=== PATIENT | male | born 1965 | race Caucasian/White ===

== ENCOUNTER 2017-04-21 08:33 | Inpatient (IN) | payer BC, MEDICARE ==
[2017-04-21] VITALS (7 sets, daily range): BP systolic 116–136; BP diastolic 61–86; PULSE 103–112; RESP 18–20; TEMP 99.3; Ht 167.6 cm; Wt 63.6 kg
[~2017-04-21] VITALS: Ht 167.6 cm; Wt 63.6 kg
[~2017-04-21 08:33] MED LIST: ALPR1TAB7 PO; LORA1TAB PO; METO-429 PO; MYCO360T PO; ONDA4TAB35 PO; PRED-253 PO; TACR1CAP PO
[2017-04-21] MEDS ORDERED: CEFEPIME 2GM/50 ML (PMX) 50 ML IVPB STA (08:40)
[2017-04-21] MEDS ORDERED: SOD CHLORIDE 0.9% 1,000 ML IV STA ×2 (08:40)
[2017-04-21] MEDS ORDERED: VANCOMYCIN 1 GM (PMX) 250 ML IVPB ONE (09:00)
[2017-04-21 09:19] LABS: ABNORMAL IP MESSAGE 1; BASOPHIL # 0.1 10^3/ul (0.0-0.1); BASOPHILS % 0.3 % (0.0-2.0); HEMATOCRIT 44.7 % (42.0-52.0); HEMOGLOBIN 15.8 g/dl (14.0-18.0); LYMPHOCYTES # 2.3 10^3/ul (0.8-2.9); LYMPHOCYTES % 10.7 % (15.0-51.0); MEAN CORPUSCULAR HEMOGLOBIN 32.2 pg (29.0-33.0); MEAN CORPUSCULAR HGB CONC 35.3 g/dl (32.0-37.0); MEAN PLATELET VOLUME 11.5 fl (7.4-10.4); MONOCYTE # 1.9 10^3/ul (0.3-0.9); MONOCYTES % 8.8 % (0.0-11.0); NEUTROPHIL # 16.8 10^3/ul (1.6-7.5); NEUTROPHILS % 79.7 % (39.0-77.0); PLATELET COUNT 287 10^3/UL (140-415); POSITIVE DIFF @See below; RED BLOOD COUNT 4.91 10^6/ul (4.70-6.10); RED CELL DISTRIBUTION WIDTH 13.4 % (11.5-14.5); WHITE BLOOD COUNT 21.1 10^3/ul (4.8-10.8)
--- NOTE | 2017-04-21 09:27 | RADRPT ---
PROCEDURE: XR Chest. CLINICAL INDICATION: chest pain TECHNIQUE: Single frontal view of the chest was obtained COMPARISON: CR CHEST 10/28/2015 FINDINGS: The heart and mediastinum are within normal limits. The lungs are clear. There is no pleural effusion or pneumothorax. RPTAT: AA IMPRESSION: No acute disease. .Bowen Franklin MD, MD Date Time Electronically viewed and signed by .Bowen Franklin MD, on 04/21/2017 09:26 .S/
[2017-04-21 09:42] LABS: ALBUMIN 4.6 g/dl (3.3-4.9); ALBUMIN/GLOBULIN RATIO 1.64; BILIRUBIN,INDIRECT 0.6 mg/dl (0-1.1); BILIRUBIN,TOTAL 0.6 mg/dl (0.2-1.3); CALCIUM 12.1 mg/dl (8.4-10.2); CREATININE 3.97 mg/dl (0.61-1.24); POTASSIUM 3.8 mmol/L (3.5-5.1); TOTAL PROTEIN 7.4 g/dl (6.1-8.1)
[2017-04-21 09:54] LABS: TROPONIN-I 0.012 ng/ml (0.00-0.12)
[2017-04-21] MEDS ORDERED: ONDANSETRON 4 MG INJ IV STA (10:30)
[2017-04-21] MEDS ORDERED: ACETAMINOPHEN 325 MG TAB PO PRN (10:30)
[2017-04-21] MEDS ORDERED: ONDANSETRON 4 MG INJ IV PRN (10:30)
[2017-04-21] MEDS ORDERED: LORAZEPAM 2 MG INJ IV ONE ×2 (11:00→14:30)
[2017-04-21] MEDS ORDERED: LORAZEPAM 1 MG TAB PO PRN (11:30)
[2017-04-21] MEDS ORDERED: ONDANSETRON (ODT) 4 MG TAB ODT PRN (11:30)
[2017-04-21 12:17] LABS: INR 1.18; PARTIAL THROMBOPLASTIN TIME 27.1 Sec (25.0-35.0); PROTIME 15.1 Sec (12.2-14.2); PT RATIO 1.2
--- NOTE | 2017-04-21 12:21 | HP ---
DATE OF ADMISSION: 04/21/2017 CHIEF COMPLAINT: Fever, rigors, nausea, vomiting. HISTORY OF PRESENT ILLNESS: This is a 51-year-old male with a past medical history of simultaneous renal and pancreatic transplant in 1999 with a baseline creatinine of 1.3 to 1.4 mg/dL. The patient is followed by myself in my office. Most recent creatinine was approximately 1.4 mg/dL approximate ly 2 months ago. The patient also has a history of CMV virus, a history of cyclic vomiting syndrome who presents to [facility] with several days of fevers, rigors, nausea, vomiting. The patient stated the symptoms began approximately 4 to 5 days ago when he started having progres sive weakness, chills. The patient during this time was also having progressive nausea and vomiting . He stated his symptoms did not improve with his usual medical management of Zofran as well as can nabis. The patient stated yesterday his symptoms progressively got worse. He was unable to tolerat e any p.o. including his immunosuppressive medications. As a result, the patient was brought into [facility] emergency room for evaluation. Upon arrival, the patient had laboratory data which showed a whit e count of 21,000. The patient had a sodium 140, BUN is 33, creatinine 3.97. Lactic acid 5.0. Caitlyn st x-ray was obtained which showed no acute pathology. In the emergency room, the patient was diagn osed with severe sepsis. He was started on sepsis protocol. He was given IV hydration, IV fluids, IV antibiotics of vancomycin and Zosyn. There have been no other acute processes noted. In terms of the patient's renal history, as stated above, the patient has history of simultaneous pa ncreatic and renal transplant 17 years ago. The patient's baseline renal function and creatinine is around 1.4 mg/dL. The patient previously did have a complication of CMV virus 1 year postinfectiou s but that was treated with IV Valcyte without any further recurrence CMV. The patient's renal func tion is otherwise stable without any further complications. There has been no further reports of an y hemoptysis, hematemesis, hematochezia. PAST MEDICAL HISTORY: As stated above, history of simultaneous pancreatic and kidney transplant in 1999 and previous history of acute kidney injury, previous history of diabetes, previous history of CMV virus, history of pneumonia, history of hypertension. PAST SURGICAL HISTORY: Status post pancreatic and kidney transplant. ALLERGIES: NO KNOWN DRUG ALLERGIES. SOCIAL HISTORY: Does not drink, smoke or do drugs. FAMILY HISTORY: Noncontributory. HOME MEDICATIONS: Include: 1. Prednisone 5 mg daily. 2. Prograf 2 mg b.i.d. 3. 360 p.o. q. 12 hours. 4. Aspirin. 5. Xanax. 6. Metoprolol. REVIEW OF SYSTEMS: A 14-point review of systems was conducted. Pertinent positives stated in HPI, otherwise negative. PHYSICAL EXAMINATION: VITAL SIGNS: Blood pressure is 118/81, respirations 24, pulse 99, temperature 98.1. HEENT: Head is normocephalic. Pupils are reactive to light. NECK: Supple. HEART: Regular rate. LUNGS: Show diminished breath sounds at base. ABDOMEN: Soft, nontender to palpation. No rebound or guarding. EXTREMITIES: Negative for clubbing, cyanosis, no edema. DERMATOLOGIC: No rashes. MUSCULOSKELETAL: No joint effusions. NEUROLOGIC: No focal deficits. LABORATORY DATA: Shows sodium 140, potassium , chloride 96, BUN 33, creatinine 3.97, calcium 1 2.1. Lactic acid 5.0, white count 21.1, hemoglobin 15.8 and platelet count 287. IMAGING STUDIES: As stated in HPI. ASSESSMENT AND PLAN: This is a 51-year-old male who presents with: 1. Severe sepsis. Underlying etiology source is unclear, possibly pneumonic, possibly abdominal, p ossible viral, that is, flu. Plan at this point is to check a CT scan of abdomen and pelvis. The p atient's chest x-ray shows no acute pathology at this time. We will follow up blood cultures. Foll ow up with influenza titers. We will continue the patient on broad-spectrum antibiotics with vancom ycin and Zosyn. Continue aggressive IV hydration. Will check lactic acid and procalcitonin level. We will place an ID consult for evaluation and monitor. 2. Acute respiratory failure. Etiology is likely due to underlying sepsis. Patient's chest x-ray shows no acute findings. Continue supplemental oxygen. Continue nebulizers. Monitor closely. Con body shop technician pulmonary consult. 3. Nonoliguric acute kidney injury on top of chronic allograft failure with previous baseline creat inine of 1.4 mg/dL. Etiology of acute kidney injury is likely secondary to hemodynamics, sepsis. T he possibility of acute rejection is always a consideration, although less likely given the acute pr esentation. Plan at this point is to check a UA with microanalysis. We will check urine electrolyt es. We will check a renal ultrasound of the patient's allograft. We will check a Prograf level. W e will continue current immunosuppressive regimen, will likely need to adjust Prograf dosing. We wi ll continue to treat underlying sepsis. Continue IV hydration, monitor closely. 4. Status post simultaneous pancreatic and kidney transplant with a baseline creatinine of 1.4 mg/d L. Patient is currently in acute kidney injury as stated above. We will continue current medical m anagement. 5. History of chronic nausea and vomiting. Continue Zofran. Continue Ativan p.r.n. 6. Anxiety disorder. Continue Xanax. 7. History of hypertension. Patient is currently hypotensive. We will hold beta janette, monitor. 8. Gastrointestinal and deep venous thrombosis prophylaxis. We will give proton pump inhibitor and Lovenox. Please note I spent over 25 minutes of sauw-cn-cvci time with the patient. The patient is FULL CODE . Dictated By: JENNIFER ELIAS/MAYTE Conf#: [id number] DID#: [id number]
--- NOTE | 2017-04-21 12:29 | CONS ---
Date/Time of Note Date/Time of Note DATE: 04/21/17 TIME: 12:21 Assessment/Plan Assessment/Plan Chief Complaint/Hosp Course 1. abnormal ECG 2. Sepsis 3. lactic acidosis 4. hx renal transplant 5. hx pancreatic transplant 6. 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 HX HTN Recommendations: IV fluid and antibiotic management as per internal medicine. Cultures to be sent from the emergency room. Aspirin and beta-janette to be continued as long as her blood pressure allows for his. We will repeat the cardiac enzymes tomorrow again. Echocardiogram will be checked as well. Adjustment of antirejection medication as per internal medicine/nephrology team. Thank you for his referral. I will continue to follow along with you. DONTA HAWLEY MD [facility] Problems: Consultation Date/Type/Reason Admit Date/Time Date of Consultation: Apr 21, 2017 Type of Consultation: cardiology Reason for Consultation abnormal ECG Referring Provider: JENNIFER MENDEZ DO Hx of Present Illness cc: weakness, N/V HPI: Thank you for his referral. This is a pleasant 51-year-old gentleman with history of pancreatic and renal transplant about 17 years ago who presented to emergency above complaint. Patient says over the past year he has been weak having nausea vomiting. Her generalized pain and discomfort including bilateral chest wall. He denies any palpitation to me. He has not been able to eat well. His EKG has showed marked ST abnormalities which was currently asked to evaluate and treat. His old record was reviewed. He has had a Lexiscan stress test done about 3 years ago at that time he was normal perfusion noted. He had he appears to have severe lactic acidosis and possibly sepsis. Allergies: No known drug allergies Medications per medical reconciliation sheet which was personally reviewed and includes Toprol and aspirin plus antirejection medications. Social history he has not smoked. Family history denies any early coronary artery disease Review of system as above mentioned he denies all other. Exam/Review of Systems Vital Signs Vitals Vital Signs Date Time Temp Pulse Resp B/P Pulse Ox O2 Delivery O2 Flow Rate FiO2 04/21/17 11:15 98.1 99 24 118/81 100 Nasal Cannula 2.0 Exam General: appears in distress. HEENT: NC/AT. pupils are equal. round. NECK: NO JVD. no stridor. CV: tachycardic. systolic murmur; no gallop or rubs. PULM: no wheezing or rhonchi. GI: SOFT, ND, no rebound or guarding Extremity: trace B/L LE edema. no clubbing. neuro: awake and alert, OX3. Psych: calm and pleasant rectal: deferred Derm: multiple tattoos ECG reviewed sinus tachy marked ST T abn c/w ant and inf/lat ischemia. CXR reviewed. lexiscan 09/26/13: 1. No evidence of perfusion defects or wall motion abnormalities. 2. The left ventricle ejection fraction at stress is 57%. Results Result Diagram: 04/21/17 0900 04/21/17 0900 Results 24 hrs Laboratory Tests Test 04/21/17 09:00 04/21/17 11:20 White Blood Count 21.1 H Red Blood Count 4.91 Hemoglobin 15.8 Hematocrit 44.7 Mean Corpuscular Volume 91.0 Mean Corpuscular Hemoglobin 32.2 Mean Corpuscular Hemoglobin Concent 35.3 Red Cell Distribution Width 13.4 Platelet Count 287 Mean Platelet Volume 11.5 #H Neutrophils % 79.7 H Lymphocytes % 10.7 L Monocytes % 8.8 Eosinophils % 0.0 Basophils % 0.3 Nucleated Red Blood Cells % 0.0 Neutrophils # 16.8 H Lymphocytes # 2.3 Monocytes # 1.9 H Eosinophils # 0.0 Basophils # 0.1 Nucleated Red Blood Cells # 0.0 Sodium Level 140 Potassium Level 3.8 Chloride Level 96 L Carbon Dioxide Level 22 Anion Gap 26 H Blood Urea Nitrogen 33 H Creatinine 3.97 H Glucose Level 144 Lactic Acid Level 5.0 *H 4.8 *H Calcium Level 12.1 H Total Bilirubin 0.6 Direct Bilirubin 0.00 Indirect Bilirubin 0.6 Aspartate Amino Transf (AST/SGOT) 24 Alanine Aminotransferase (ALT/SGPT) 18 Alkaline Phosphatase 72 Troponin I 0.012 Total Protein 7.4 Albumin 4.6 Globulin 2.80 Albumin/Globulin Ratio 1.64 Lipase 33 Prothrombin Time 15.1 H Prothrombin Time Ratio 1.2 INR International Normalized Ratio 1.18 Activated Partial Thromboplast Time 27.1 Medications Medications Current Medications Alprazolam (Xanax) 1 mg Q8 PRN PO ANXIETY; Start 04/21/17 at 11:30 Mycophenolate Sodium (Myfortic) 360 mg Q12 PO ; Start 04/21/17 at 21:00 Ondansetron HCl (Zofran Odt) 4 mg Q6 PRN ODT NAUSEA AND/OR VOMITING; Start at 11:30 Prednisone (Prednisone) 5 mg DAILY PO ; Start 04/22/17 at 09:00 Tacrolimus 2 mg 2 mg Q12 PO ; Start 04/21/17 at 21:00 Sodium Chloride 1,000 ml @ 100 mls/hr Q10H IV ; Start 04/21/17 at 12:00 Cefepime HCl 50 ml @ 100 mls/hr BID IVPB ; Start 04/21/17 at 21:00 Sodium Chloride (NS) 1,000 ml @ 100 mls/hr Q10H IV ; Start 04/21/17 at 12:00 DONTA HAWLEY MD Apr 21, 2017 12:29 Medications Current Medications Alprazolam (Xanax) 1 mg Q8 PRN PO ANXIETY; Start 04/21/17 at 11:30 Mycophenolate Sodium (Myfortic) 360 mg Q12 PO ; Start 04/21/17 at 21:00 Ondansetron HCl (Zofran Odt) 4 mg Q6 PRN ODT NAUSEA AND/OR VOMITING; Start at 11:30 Prednisone (Prednisone) 5 mg DAILY PO ; Start 04/22/17 at 09:00 Tacrolimus 2 mg 2 mg Q12 PO ; Start 04/21/17 at 21:00 Sodium Chloride 1,000 ml @ 100 mls/hr Q10H IV ; Start 04/21/17 at 12:00 Cefepime HCl 50 ml @ 100 mls/hr BID IVPB ; Start 04/21/17 at 21:00 Sodium Chloride (NS) 1,000 ml @ 100 mls/hr Q10H IV ; Start 04/21/17 at 12:00 DONTA HAWLEY MD Apr 21, 2017 12:29
[2017-04-21] MEDS ORDERED: METOCLOPRAMIDE 10 MG INJ ONE (12:45)
[2017-04-21] MEDS ORDERED: HALOPERIDOL 5 MG INJ IV ONE (13:00)
[2017-04-21] MEDS ORDERED: METOCLOPRAMIDE 10 MG INJ IV ONE (13:00)
[2017-04-21] MEDS ORDERED: ASPI81TA3 PO (13:11)
[2017-04-21] MEDS ORDERED: AMLO-147 PO (13:11)
--- NOTE | 2017-04-21 13:14 | ERD ---
ER Documentation Chief Complaint Chief Complaint DIZZINESS, WEAKNESS, & LOSS OF APPETITIE X2 DAYS HPI Patient is a 51-year-old male with kidney and pancreas transplant and diabetes who presents with dizziness and weakness. He was brought in by ambulance. He said that he has had the symptoms for the past 2 days. He almost passed out but did not pass out. He was given normal saline 500 mL bolus and Zofran by paramedics. He had low blood pressure for the paramedics. He was having whole body chills. He does not know if he had a fever. He has had nausea and vomiting. He was taking his antirejection medicines until 24 hours ago when he could not keep anything down. He has had cough and decreased urination. His primary doctor is Dr. Ruiz. ROS All systems reviewed and are negative except as per history of present illness. Medications Home Meds Active Scripts Ondansetron Hcl* (Zofran* ODT) 4 mg -ODT Tab.disper, 4 MG PO Q6 Y for NAUSEA AND /OR VOMITING, #20 TAB Prov:EFREN RAMON 10/29/15 Lorazepam* (Lorazepam*) 1 Mg Tablet, 1 MG PO Q8H Y for ANXIETY, #20 TAB Prov:EFREN RAMON 10/29/15 Reported Medications Alprazolam* (Alprazolam*) 1 Mg Tablet, 1 MG PO Q8 Y for ANXIETY, TAB 10/28/15 Metoprolol Tartrate* (Lopressor*) 50 Mg Tab, 50 MG PO BID, #60 TAB 10/28/15 Mycophenolate Sodium* (Myfortic*) 360 Mg Tablet., 360 MG PO Q12, TAB 07/23/14 Tacrolimus* (Tacrolimus*) 1 Mg Capsule, 2 MG PO Q12, CAP 07/23/14 Prednisone (Prednisone) 5 Mg Tablet, 5 MG PO DAILY 03/20/11 Allergies Allergies: Coded Allergies: No Known Allergies (Verified Allergy, Unknown, 10/28/15) PMhx/Soc History of Surgery: Yes (RT KIDNEY & PANCREAS TRANSPLANT 17 YRS AGO) Anesthesia Reaction: No Hx Neurological Disorder: No Hx Respiratory Disorders: No Hx Cardiac Disorders: Yes (AFIB) Hx Psychiatric Problems: No Hx Miscellaneous Medical Probl: Yes (DM) Hx Alcohol Use: No Hx Substance Use: No Hx Tobacco Use: No FmHx Family History: No diabetes Physical Exam Vitals Vital Signs Date Time Temp Pulse Resp B/P Pulse Ox O2 Delivery O2 Flow Rate FiO2 04/21/17 11:15 98.1 99 24 118/81 100 Nasal Cannula 2.0 04/21/17 08:40 98.7 104 24 105/75 100 04/21/17 08:40 Nasal Cannula 2 Physical Exam Const: Moderate distress with rigors Head: Atraumatic Eyes: Normal Conjunctiva ENT: Normal External Ears, Nose and Mouth. Neck: Full range of motion..~ No meningismus. Resp: Clear to auscultation bilaterally Cardio: Regular rate and rhythm, no murmurs Abd: Soft, non tender, non distended. Normal bowel sounds Skin: Pale skin Back: No midline or flank tenderness Ext: No cyanosis, or edema Neur: Awake and alert, patient has full body rigors Result Diagram: 04/21/17 0900 04/21/17 0900 Results 24 hrs Laboratory Tests Test 04/21/17 09:00 04/21/17 11:20 White Blood Count 21.110^3/ul Red Blood Count 4.9110^6/ul Hemoglobin 15.8g/dl Hematocrit 44.7% Mean Corpuscular Volume 91.0fl Mean Corpuscular Hemoglobin 32.2pg Mean Corpuscular Hemoglobin Concent 35.3g/dl Red Cell Distribution Width 13.4% Platelet Count 92982^3/UL Mean Platelet Volume 11.5fl Neutrophils % 79.7% Lymphocytes % 10.7% Monocytes % 8.8% Eosinophils % 0.0% Basophils % 0.3% Nucleated Red Blood Cells % 0.0/100WBC Neutrophils # 16.810^3/ul Lymphocytes # 2.310^3/ul Monocytes # 1.910^3/ul Eosinophils # 0.010^3/ul Basophils # 0.110^3/ul Nucleated Red Blood Cells # 0.010^3/ul Sodium Level 140mmol/L Potassium Level 3.8mmol/L Chloride Level 96mmol/L Carbon Dioxide Level 22mmol/L Anion Gap 26 Blood Urea Nitrogen 33mg/dl Creatinine 3.97mg/dl Glucose Level 144mg/dl Lactic Acid Level 5.0mmol/L 4.8mmol/L Calcium Level 12.1mg/dl Total Bilirubin 0.6mg/dl Direct Bilirubin 0.00mg/dl Indirect Bilirubin 0.6mg/dl Aspartate Amino Transf (AST/SGOT) 24IU/L Alanine Aminotransferase (ALT/SGPT) 18IU/L Alkaline Phosphatase 72IU/L Troponin I 0.012ng/ml Total Protein 7.4g/dl Albumin 4.6g/dl Globulin 2.80g/dl Albumin/Globulin Ratio 1.64 Lipase 33U/L Prothrombin Time 15.1Sec Prothrombin Time Ratio 1.2 INR International Normalized Ratio 1.18 Activated Partial Thromboplast Time 27.1Sec Current Medications Medications (Trade) Dose Ordered Sig/Shalonda Route PRN Reason Start Time Stop Time Status Last Admin Dose Admin Cefepime HCl 50 ml @ 100 mls/hr ONCE STAT IVPB 04/21/17 08:40 04/21/17 09:09 DC 04/21/17 10:00 Vancomycin HCl 250 ml @ 125 mls/hr ONCE ONCE IVPB 04/21/17 09:00 04/21/17 10:59 DC 04/21/17 10:59 Sodium Chloride 1,000 ml @ 1,000 mls/hr Q1H STAT IV 04/21/17 08:40 04/21/17 09:39 DC 04/21/17 09:49 Sodium Chloride (NS) 1,000 ml @ 1,000 mls/hr Q1H STAT IV 04/21/17 08:40 04/21/17 09:39 DC 04/21/17 10:58 Ondansetron HCl (Zofran Inj) 4 mg ER BRIDGE PRN IV NAUSEA AND/OR VOMITING 04/21/17 10:30 04/22/17 10:29 04/21/17 10:58 Acetaminophen (Tylenol Tab) 650 mg ER BRIDGE PRN PO MILD PAIN/FEVER 04/21/17 10:30 04/22/17 10:29 Ondansetron HCl (Zofran Inj) 4 mg ONCE STAT IV 04/21/17 10:30 04/21/17 10:31 DC 04/21/17 10:53 Lorazepam (Ativan) 1 mg ONCE ONCE IV 04/21/17 11:00 04/21/17 11:01 DC 04/21/17 10:52 Alprazolam (Xanax) 1 mg Q8 PRN PO ANXIETY 04/21/17 11:30 Lorazepam (Ativan) 1 mg Q8H PRN PO ANXIETY 04/21/17 11:30 UNV Metoprolol Tartrate (Lopressor) 50 mg BID PO 04/21/17 21:00 04/21/17 21:00 DC Mycophenolate Sodium (Myfortic) 360 mg Q12 PO 04/21/17 21:00 Ondansetron HCl (Zofran Odt) 4 mg Q6 PRN ODT NAUSEA AND/OR VOMITING 04/21/17 11:30 Prednisone (Prednisone) 5 mg DAILY PO 04/22/17 09:00 Tacrolimus 2 mg 2 mg Q12 PO 04/21/17 21:00 Sodium Chloride 1,000 ml @ 100 mls/hr Q10H IV 04/21/17 12:00 Cefepime HCl 50 ml @ 100 mls/hr BID IVPB 04/21/17 21:00 Sodium Chloride (NS) 1,000 ml @ 100 mls/hr Q10H IV 04/21/17 12:00 Metoclopramide HCl (Reglan) 10 mg STK-MED ONCE .ROUTE 04/21/17 12:45 04/21/17 12:46 DC Metoclopramide HCl (Reglan) 10 mg ONCE ONCE IV 04/21/17 13:00 04/21/17 13:01 DC Haloperidol (Haldol) 2 mg ONCE ONCE IV 04/21/17 13:00 04/21/17 13:01 DC Procedures/MDM EKG read by me: Rate/Rhythm: Regular rate and rhythm at a rate of 85 Intervals: Normal Impression: ST depressions diffusely Chest x-ray negative per radiology. Admit MDM: Patient's infectious symptoms have not stabilized and the patient is at risk of rapid decompensation. The patient will be admitted for careful hydration, antibiotic therapy, and infectious source control. Severe Sepsis criteria: Infectious source: Likely cystitis End organ damage indicated by: Lactic acid greater than 2 and creatinine showing acute renal failure Sepsis Management: Time of recognition of sepsis: Upon arrival Within 3 hours of recognition: Blood cultures x 2 before broad-spectrum antibiotics: Yes 30 ml/kg NS bolus Completed Initial lactate 5.0 Repeat lactate 4.8 Time of recognition of septic shock: 9 AM Septic Shock Assessment: Any lactic acid > 4.0 yes Persistent hypotension (SBP < 90 or 40 mmHg drop, MAP < 65) despite 30 mL/kg IV fluid bolus No Volume Re-assessment for Septic Shock (post 30 ml/kg bolus): Temp 98.1, BP 118/81, HR 99, RR 24, Pox 100% on room air Heart Regular rate & rhythm Lungs No crackles Skin Warm & dry Cap Refill Less than 2 seconds Peripheral pulses Radially present Persistent Hypotension Treatment: Comfort care No Central line Not Required Vasopressor started Not required I considered further perfusion assessment with CVP measurement, SCVO2, bedside ultrasound volume assessment, passive leg raise, trial of further fluid bolus. And proceeded with 30 ml/kg fluid bolus of NSS, broad spectrum antibiotics, and admission. The patient also has kidney and pancreas transplant and given the elevated creatinine I am concerned about potential rejection. Dr. Ruiz the patient's primary doctor is come to the bedside. The patient was given fluid and broad-spectrum antibiotics and hopefully his creatinine will improve. Accepting Care Team Current data and ongoing care discussed. Admitting Physician: Dr. Ruiz the patient's primary doctor Ferry Operator(s): None Outstanding Data: Culture results Critical Care: Critical care time 50 minutes excluding all billable procedures Emergent fluid management while maintaining close respiratory support. Provision of immediate and broad-spectrum antibiotic therapy. Simultaneous assessment for possible sources in order to direct targeted therapy. Consideration for invasive and chemical support to prevent cardiopulmonary collapse. Departure Diagnosis: Primary Impression: Dizziness Additional Impressions: Septic shock Renal failure Renal failure chronicity: acute Acute renal failure type: unspecified Qualified Code: N17.9 - Acute renal failure, unspecified acute renal failure type Condition: Serious MATTHEW RAMSEY MD Apr 21, 2017 13:14
--- NOTE | 2017-04-21 13:59 | CONS ---
DATE OF ADMISSION: 04/21/2017 DATE OF CONSULTATION: 04/21/2017 TYPE OF CONSULTATION: Infectious Disease. REASON FOR CONSULTATION: Antibiotic management. HISTORY OF PRESENT ILLNESS: Vivek Junior is a 51-year-old male who comes in with fever, rigors, nause a and vomiting. Mr. Junior is a 51-year-old male with numerous problems who comes in for antibiotic management. His problems include: 1. History of simultaneous pancreatic and kidney transplant in 1999. 2. Previous history of acute kidney injury. 3. Previous history of diabetes mellitus. 4. History of CMV virus. 5. History of pneumonia. 6. Hypertension. Acutely, the patient comes in with a creatinine of 1.3-1.4. He has a history of cyclic vomiting syn drome. He comes in now with fever, rigors, nausea and vomiting which began 4 to 5 days prior to adm ission. He stated his symptoms did not improve with Zofran as well as cannabis. He was unable to t olerate any oral medication including immunosuppressive medication. In the emergency room, his whit e count was elevated at 21,100, hemoglobin 15.8, platelet count 286,000. BUN and creatinine up to 3 3/3.97. Lactic acid was 5.0. Chest x-ray showed no acute pathology. He was diagnosed with severe sepsis, given IV hydration and started on vancomycin and Zosyn. PAST SURGICAL HISTORY: As outlined. PAST SURGICAL HISTORY: Status post pancreatic and kidney transplant. FAMILY HISTORY: Noncontributory. SOCIAL HISTORY: He does not smoke, drink or abuse drugs. ALLERGIES: NONE TO PENICILLIN, SULFA OR FOODS. MEDICATIONS: Include: 1. Prednisone 5 mg a day. 2. Prograf 2 mg per day. REVIEW OF SYSTEMS: Noncontributory. PHYSICAL EXAMINATION: GENERAL: The patient is a well-developed, well-nourished male, alert, responsive, in no acute distr ess. VITAL SIGNS: Stable. He is afebrile. SKIN: Without generalized rash. HEENT: Within normal limits. NECK: Supple. LYMPH NODES: None palpable. CHEST: Decreased breath sounds at the bases. HEART: Without murmur or gallop. ABDOMEN: Soft, nontender, without organosplenomegaly or masses. EXTREMITIES: Without cyanosis, clubbing, or edema. RECTAL AND GENITAL: Exams deferred. NEUROLOGIC: No focal neurological abnormalities. IMPRESSION AND PLAN: The patient comes in with severe sepsis. A chest x-ray shows no acute disease . His lactic acid as noted was 5 and then 4.8. Liver function tests are within normal limits. Rober l have to check his urine, rule out urinary tract infection and a procalcitonin level was ordered an d ID consult was requested. I will dictate my findings to Dr. Mendez. I want to thank him for asking us to see this elsie gen isaias in consultation. Dictated By: RADHA NOVAK MD, JD/MAYTE Conf#: [id number] DID#: [id number] CC: JENNIFER MENDEZ DO;*EndCC*
--- NOTE | 2017-04-21 16:44 | RADRPT ---
PROCEDURE: CT Abdomen and Pelvis without contrast. CLINICAL INDICATION: Lower abdominal pain. TECHNIQUE: CT scan of the abdomen and pelvis without contrast was performed on a multidetector hig h-resolution CT scanner. The patient was scanned without intravenous contrast. Coronal and sagittal reformatted images were obtained from the axial source images. Images were reviewed on a high-resol [employer] PACS workstation. The total exam CTDI equals 7.32 mGy and the total exam DLP equals 426.57 mGy -cm. One or the following dose reduction techniques were used: -Automated exposure control. -Adjustment of the mA and/or KV according to patient's size. -Use of iterative reconstruction technique. DICOM images are available. COMPARISON: CT abdomen pelvis 10/29/2015. FINDINGS: Lung Bases: Unremarkable. GI:. Unremarkable. Liver: Unremarkable. Gallbladder: Unremarkable. Pancreas: Unremarkable. Spleen: Unremarkablel Adrenals: Unremarkable. Kidneys: Kidneys are severely atrophic with medical cortical thinning and bilateral cysts consistent with severe medical renal disease. There are bilateral nonobstructing calculi similar appearance to the prior study. 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 Bladder: Unremarkable. Pelvic Organs: Moderate sized, enlarging scrotal hydrocele. Skeleton: Normal for age. Other: Moderate atherosclerotic calcifications. IMPRESSION: 1. Small alutiiq kidneys with bilateral nonobstructing renal calculi with a pelvic renal allograft wi thout evidence of urolithiasis or obstructive uropathy. 2. Scattered colonic diverticulosis without evidence of acute diverticulitis. 3. Moderate scattered fecal residue suggesting constipation. 4. Slight increase in size of a scrotal hydrocele. 5. Atherosclerotic calcifications. RPTAT: [facility] Physician Tawnya Date Time Electronically viewed and signed by Physician Tawnya on 04/21/2017 16:43 GENNA/
[2017-04-21 17:16] LABS: ADD UMIC YES; UR ASCORBIC ACID NEGATIVE (NEGATIVE); UR BILIRUBIN (Dip) 1+ mg/dL (NEGATIVE); UR BLOOD (Dip) NEGATIVE (NEGATIVE); UR CLARITY SLIGHTLY CLOUDY (CLEAR); UR COLOR AMBER (YELLOW); UR GLUCOSE (Dip) 1+ mg/dL (NEGATIVE); UR KETONES (Dip) TRACE mg/dL (NEGATIVE); UR LEUKOCYTE ESTERASE (Dip) NEGATIVE Leu/ul (NEGATIVE); UR NITRITE (Dip) NEGATIVE (NEGATIVE); UR RBC 15 /HPF (0-5); UR SPECIFIC GRAVITY (Dip) 1.021 (1.003-1.030); UR TOTAL PROTEIN (Dip) 1+ mg/dl (NEGATIVE); UR UROBILINOGEN (Dip) 1+ mg/dL (NEGATIVE)
[2017-04-21] MEDS: ALPRAZOLAM 1 MG TAB PO PRN (19:54)
[2017-04-21] MEDS ORDERED: INFLUENZA VIRUS VACCINE 0.5 ML (DISPENSING) IM* ONE (20:30)
[2017-04-21] MEDS ORDERED: METOPROLOL 50 MG TAB PO SCH (21:00)
[2017-04-21] MEDS: CEFEPIME 1GM/50 ML (PMX) 50 ML IVPB SCH (21:52)
[2017-04-21] MEDS: SOD CHLORIDE 0.9% 1,000 ML IV SCH (22:00)
[2017-04-21] MEDS: MYCOPHENOLATE (SR) 180 MG TAB PO SCH (22:54)
[2017-04-21] MEDS: TACROLIMUS 1 MG CAP PO SCH (22:54)
[2017-04-22] VITALS (14 sets, daily range): BP systolic 121–179; BP diastolic 64–91; PULSE 81–108; RESP 20–24
[2017-04-22] MEDS: ALPRAZOLAM 1 MG TAB PO PRN ×3 (04:02→20:34)
[2017-04-22] MEDS: SOD CHLORIDE 0.9% 1,000 ML IV SCH ×6 (05:52→18:00)
[2017-04-22 08:13] LABS: BASOPHILS % 0.3 % (0.0-2.0); EOSINOPHILS % 0.1 % (0.0-7.0); HEMATOCRIT 41.1 % (42.0-52.0); LYMPHOCYTES # 1.9 10^3/ul (0.8-2.9); LYMPHOCYTES % 12.8 % (15.0-51.0); MEAN CORPUSCULAR HEMOGLOBIN 31.7 pg (29.0-33.0); MEAN CORPUSCULAR HGB CONC 34.1 g/dl (32.0-37.0); MEAN PLATELET VOLUME 11.1 fl (7.4-10.4); MONOCYTE # 1.4 10^3/ul (0.3-0.9); MONOCYTES % 9.5 % (0.0-11.0); NEUTROPHIL # 11.7 10^3/ul (1.6-7.5); NEUTROPHILS % 76.8 % (39.0-77.0); PLATELET COUNT 232 10^3/UL (140-415); RED BLOOD COUNT 4.42 10^6/ul (4.70-6.10); RED CELL DISTRIBUTION WIDTH 13.7 % (11.5-14.5); WHITE BLOOD COUNT 15.2 10^3/ul (4.8-10.8)
[2017-04-22 08:47] LABS: ALBUMIN 3.3 g/dl (3.3-4.9); ALBUMIN/GLOBULIN RATIO 1.13; BILIRUBIN,INDIRECT 0.7 mg/dl (0-1.1); BILIRUBIN,TOTAL 0.7 mg/dl (0.2-1.3); CALCIUM 9.7 mg/dl (8.4-10.2); CHOL/HDL RATIO 3.3 RATIO; CREATININE 1.99 mg/dl (0.61-1.24); POTASSIUM 3.5 mmol/L (3.5-5.1); TOTAL PROTEIN 6.2 g/dl (6.1-8.1)
[2017-04-22 08:48] LABS: MAGNESIUM 1.6 mg/dl (1.7-2.5); PHOSPHORUS 3.4 mg/dl (2.5-4.9)
[2017-04-22 08:53] LABS: TROPONIN-I 0.018 ng/ml (0.00-0.12)
[2017-04-22 08:54] LABS: CK-MB 0.97 ng/ml (0.0-2.4)
[2017-04-22 09:11] LABS: THYROID STIMULATING HORMONE 2.21 MIU/L (0.465-4.680)
[2017-04-22] MEDS: predniSONE 5 MG TAB PO SCH (09:47)
[2017-04-22] MEDS: TACROLIMUS 1 MG CAP PO SCH ×2 (09:47→20:34)
[2017-04-22] MEDS: CEFEPIME 1GM/50 ML (PMX) 50 ML IVPB SCH ×2 (09:48→20:29)
[2017-04-22] MEDS: MYCOPHENOLATE (SR) 180 MG TAB PO SCH ×2 (09:48→20:35)
--- NOTE | 2017-04-22 09:48 | PN ---
Date/Time of Note Date/Time of Note DATE: 04/22/17 TIME: 09:45 Assessment/Plan VTE Prophylaxis VTE Prophylaxis Intervention: other Lines/Catheters [facility] Saline Lock Urinary Cath still in place: No Assessment/Plan Chief Complaint/Hosp Course This is a 51-year-old male with a past medical history of simultaneous renal and pancreatic transplant in 1999 with a baseline creatinine of 1.3 to 1.4 mg/ dL. Most recent creatinine was approximately 1.4 mg/dL approximately 2 months ago. The patient also has a history of CMV virus, a history of cyclic vomiting syndrome who presents to [facility] with several days of fevers, rigors, nausea, vomiting. The patient during this time was also having progressive nausea and vomiting. He stated his symptoms did not improve with his usual medical management of Zofran as well as cannabis. The patient stated yesterday his symptoms progressively got worse. He was unable to tolerate any p.o. including his immunosuppressive medications. As a result, the patient was brought into the emergency room for evaluation. Upon arrival, the patient had laboratory data which showed a white count of 21,000. The patient had a sodium 140, BUN is 33, creatinine 3.97. Lactic acid 5.0. Chest x-ray was obtained which showed no acute pathology. In the emergency room, the patient was diagnosed with possible sepsis. He was started on sepsis protocol. He was given IV hydration, IV fluids, IV antibiotics of vancomycin and Zosyn. There have been no other acute processes noted. In terms of the patient's renal history, as stated above, the patient has history of simultaneous pancreatic and renal transplant 17 years ago. The patient's baseline renal function and creatinine is around 1.4 mg/dL. The patient previously did have a complication of CMV virus 1 year postinfectious but that was treated with IV Valcyte without any further recurrence CMV. The patient's renal function is otherwise stable without any further complications. There has been no further reports of any hemoptysis, hematemesis, hematochezia. his kidney allograft function is improving good uop very anxious REVIEW OF SYSTEMS: A 14-point review of systems was conducted. Pertinent positives stated in HPI, otherwise negative. PHYSICAL EXAMINATION: HEENT: Head is normocephalic. Pupils are reactive to light. NECK: Supple. HEART: Regular rate. LUNGS: Show diminished breath sounds at base. ABDOMEN: Soft, nontender to palpation. No rebound or guarding. EXTREMITIES: Negative for clubbing, cyanosis, no edema. DERMATOLOGIC: No rashes. MUSCULOSKELETAL: No joint effusions. NEUROLOGIC: No focal deficits. ASSESSMENT AND PLAN: This is a 51-year-old male who presents with: 1. possible sepsis in an immunocompromised patient. Underlying etiology source is unclear. We will follow up blood cultures. We will continue the patient on broad-spectrum antibiotics with vancomycin and Zosyn. Continue aggressive IV hydration. 2. Acute respiratory failure. resolved 3. 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 Etiology of acute kidney injury is likely secondary to hemodynamics, sepsis. improving. We will continue current immunosuppressive regimen, will likely need to adjust Prograf dosing. 4. Status post simultaneous pancreatic and kidney transplant with a baseline creatinine of 1.4 mg/dL. Patient is currently in acute kidney injury as stated above. We will continue current medical management. 5. History of chronic nausea and vomiting. Continue Zofran. Continue Ativan p.r.n. 6. Anxiety disorder. Continue Xanax. 7. History of hypertension. Patient is currently hypotensive. We will hold beta janette, monitor. 8. Gastrointestinal and deep venous thrombosis prophylaxis. We will give proton pump inhibitor and Lovenox. Problems: Exam/Review of Systems Vital Signs Vitals Vital Signs Date Time Temp Pulse Resp B/P Pulse Ox O2 Delivery O2 Flow Rate FiO2 04/22/17 08:30 86 04/22/17 07:41 98.7 20 130/72 98 04/21/17 20:00 Nasal Cannula 2.0 Intake and Output 04/21/17 04/21/17 04/22/17 15:00 23:00 07:00 Intake Total 2300 ml 500 ml 250 ml Balance 2300 ml 500 ml 250 ml Results Result Diagram: 04/22/17 0748 04/22/17 0748 Results 24 hrs Laboratory Tests Test 04/21/17 11:20 04/21/17 15:05 04/21/17 16:30 04/22/17 07:48 Prothrombin Time 15.1 H Prothrombin Time Ratio 1.2 INR International Normalized Ratio 1.18 Activated Partial Thromboplast Time 27.1 Lactic Acid Level 4.8 *H 1.8 Urine Color ESTEFANY Urine Clarity SLIGHTLY CLOUDY A Urine pH 5.0 Urine Specific [place] 1.021 Urine Ketones TRACE A Urine Nitrite NEGATIVE Urine Bilirubin 1+ H Urine Urobilinogen 1+ H Urine Leukocyte Esterase NEGATIVE Urine Microscopic RBC 15 H Urine Microscopic WBC 0 Urine Hemoglobin NEGATIVE Urine Random Creatinine 333.11 Urine Random Sodium < 13 L Urine Glucose 1+ H Urine Total Protein 30.0 H White Blood Count 15.2 #H Red Blood Count 4.42 L Hemoglobin 14.0 Hematocrit 41.1 L Mean Corpuscular Volume 93.0 Mean Corpuscular Hemoglobin 31.7 Mean Corpuscular Hemoglobin Concent 34.1 Red Cell Distribution Width 13.7 Platelet Count 232 Mean Platelet Volume 11.1 H Neutrophils % 76.8 Lymphocytes % 12.8 L Monocytes % 9.5 Eosinophils % 0.1 Basophils % 0.3 Nucleated Red Blood Cells % 0.0 Neutrophils # 11.7 H Lymphocytes # 1.9 Monocytes # 1.4 H Eosinophils # 0.0 Basophils # 0.0 Nucleated Red Blood Cells # 0.0 Sodium Level 142 Potassium Level 3.5 Chloride Level 107 # Carbon Dioxide Level 26 Anion Gap 13 # Blood Urea Nitrogen 29 H Creatinine 1.99 #H Glucose Level 98 # Calcium Level 9.7 Phosphorus Level 3.4 Magnesium Level 1.6 L Total Bilirubin 0.7 Direct Bilirubin 0.00 Indirect Bilirubin 0.7 Aspartate Amino Transf (AST/SGOT) 29 Alanine Aminotransferase (ALT/SGPT) 27 Alkaline Phosphatase 53 Total Protein 6.2 # Albumin 3.3 # Globulin 2.90 Albumin/Globulin Ratio 1.13 Triglycerides Level 144 Cholesterol Level 130 LDL Cholesterol, Calculated 62 HDL Cholesterol 39 Cholesterol/HDL Ratio 3.3 Thyroid Stimulating Hormone (TSH) 2.210 Test 04/22/17 07:50 Creatine Kinase 107 Creatine Kinase Index 0.9 Creatinine Kinase MB (Mass) 0.97 Troponin I 0.018 Medications Medications Current Medications Alprazolam (Xanax) 1 mg Q8 PRN PO ANXIETY Last administered on 04/22/17 04:02 ; Admin Dose 1 MG; Start 04/21/17 at 11:30 Mycophenolate Sodium (Myfortic) 360 mg Q12 PO Last administered on 04/21/17 22:54; Admin Dose 360 MG; Start 04/21/17 at 21:00 Ondansetron HCl (Zofran Odt) 4 mg Q6 PRN ODT NAUSEA AND/OR VOMITING; Start at 11:30 Prednisone (Prednisone) 5 mg DAILY PO ; Start 04/22/17 at 09:00 Tacrolimus 2 mg 2 mg Q12 PO Last administered on 04/21/17 22:54; Admin Dose 2 MG; Start 04/21/17 at 21:00 Sodium Chloride 1,000 ml @ 100 mls/hr Q10H IV ; Start 04/21/17 at 12:00 Cefepime HCl 50 ml @ 100 mls/hr BID IVPB Last administered on 04/21/17 21:52 ; Admin Dose 100 MLS/HR; Start 04/21/17 at 21:00 Sodium Chloride (NS) 1,000 ml @ 100 mls/hr Q10H IV Last administered on 05:52; Admin Dose 100 MLS/HR; Start 04/21/17 at 12:00 MAVERICK QUIÑONES DO Apr 22, 2017 09:48
[2017-04-22] MEDS ORDERED: MAGNESIUM SULFATE 2 GM/50 ML 50 ML IVPB ONE (10:00)
--- NOTE | 2017-04-22 11:15 | CONS ---
Date/Time of Note Date/Time of Note DATE: 04/22/17 TIME: 11:10 Consult Date/Type/Reason Admit Date/Time Apr 21, 2017 at 10:23 Initial Consult Date 04/21/17 Type of Consultation: cardiology Ordering Provider: JENNIFER MENDEZ DO Subjective cardiology followup note: S: Dw/ staff and rhythm was reviewed. pt remains in NSR NO CHEST PAIN Still c/o sob and being anxious no palpitations O: General: appears anxious. HEENT: NC/AT. pupils are equal. round. NECK: NO JVD. no stridor. CV: tachycardic. systolic murmur; no gallop or rubs. PULM: no wheezing or rhonchi. GI: SOFT, ND, no rebound or guarding Extremity: trace B/L LE edema. no clubbing. neuro: awake and alert, OX3. Psych: calm and pleasant rectal: deferred Derm: multiple tattoos ECG reviewed sinus tachy marked ST T abn c/w ant and inf/lat ischemia. CXR reviewed. lexiscan 09/26/13: 1. No evidence of perfusion defects or wall motion abnormalities. 2. The left ventricle ejection fraction at stress is 57%. Objective Vital Signs Date Time Temp Pulse Resp B/P Pulse Ox O2 Delivery O2 Flow Rate FiO2 04/22/17 11:08 98.4 106 20 145/84 100 04/21/17 20:00 Nasal Cannula 2.0 Intake and Output 04/21/17 04/21/17 04/22/17 15:00 23:00 07:00 Intake Total 2300 ml 500 ml 250 ml Balance 2300 ml 500 ml 250 ml Results/Medications Result Diagram: 04/22/17 0748 04/22/17 0748 Results 24 hrs Laboratory Tests Test 04/21/17 11:20 04/21/17 15:05 04/21/17 16:30 04/22/17 07:48 Prothrombin Time 15.1 H Prothrombin Time Ratio 1.2 INR International Normalized Ratio 1.18 Activated Partial Thromboplast Time 27.1 Lactic Acid Level 4.8 *H 1.8 Urine Color ESTEFANY Urine Clarity SLIGHTLY CLOUDY A Urine pH 5.0 Urine Specific [place] 1.021 Urine Ketones TRACE A Urine Nitrite NEGATIVE Urine Bilirubin 1+ H Urine Urobilinogen 1+ H Urine Leukocyte Esterase NEGATIVE Urine Microscopic RBC 15 H Urine Microscopic WBC 0 Urine Hemoglobin NEGATIVE Urine Random Creatinine 333.11 Urine Random Sodium < 13 L Urine Glucose 1+ H Urine Total Protein 30.0 H White Blood Count 15.2 #H Red Blood Count 4.42 L Hemoglobin 14.0 Hematocrit 41.1 L Mean Corpuscular Volume 93.0 Mean Corpuscular Hemoglobin 31.7 Mean Corpuscular Hemoglobin Concent 34.1 Red Cell Distribution Width 13.7 Platelet Count 232 Mean Platelet Volume 11.1 H Neutrophils % 76.8 Lymphocytes % 12.8 L Monocytes % 9.5 Eosinophils % 0.1 Basophils % 0.3 Nucleated Red Blood Cells % 0.0 Neutrophils # 11.7 H Lymphocytes # 1.9 Monocytes # 1.4 H Eosinophils # 0.0 Basophils # 0.0 Nucleated Red Blood Cells # 0.0 Sodium Level 142 Potassium Level 3.5 Chloride Level 107 # Carbon Dioxide Level 26 Anion Gap 13 # Blood Urea Nitrogen 29 H Creatinine 1.99 #H Glucose Level 98 # Calcium Level 9.7 Phosphorus Level 3.4 Magnesium Level 1.6 L Total Bilirubin 0.7 Direct Bilirubin 0.00 Indirect Bilirubin 0.7 Aspartate Amino Transf (AST/SGOT) 29 Alanine Aminotransferase (ALT/SGPT) 27 Alkaline Phosphatase 53 Total Protein 6.2 # Albumin 3.3 # Globulin 2.90 Albumin/Globulin Ratio 1.13 Triglycerides Level 144 Cholesterol Level 130 LDL Cholesterol, Calculated 62 HDL Cholesterol 39 Cholesterol/HDL Ratio 3.3 Thyroid Stimulating Hormone (TSH) 2.210 Test 04/22/17 07:50 Creatine Kinase 107 Creatine Kinase Index 0.9 Creatinine Kinase MB (Mass) 0.97 Troponin I 0.018 Medications Current Medications Alprazolam (Xanax) 1 mg Q8 PRN PO ANXIETY Last administered on 04/22/17 04:02 ; Admin Dose 1 MG; Start 04/21/17 at 11:30 Mycophenolate Sodium (Myfortic) 360 mg Q12 PO Last administered on 04/22/17 09:48; Admin Dose 360 MG; Start 04/21/17 at 21:00 Ondansetron HCl (Zofran Odt) 4 mg Q6 PRN ODT NAUSEA AND/OR VOMITING Last administered on 04/22/17 10:21; Admin Dose 4 MG; Start 04/21/17 at 11:30 Prednisone (Prednisone) 5 mg DAILY PO Last administered on 04/22/17 09:47; Admin Dose 5 MG; Start 04/22/17 at 09:00 Tacrolimus 2 mg 2 mg Q12 PO Last administered on 04/22/17 09:47; Admin Dose 2 MG; Start 04/21/17 at 21:00 Sodium Chloride 1,000 ml @ 100 mls/hr Q10H IV ; Start 04/21/17 at 12:00 Cefepime HCl 50 ml @ 100 mls/hr BID IVPB Last administered on 04/22/17 09:48 ; Admin Dose 100 MLS/HR; Start 04/21/17 at 21:00 Sodium Chloride 1,000 ml @ 100 mls/hr Q10H IV Last administered on 04/22/17 05:52; Admin Dose 100 MLS/HR; Start 04/21/17 at 12:00 Magnesium Sulfate (Magnesium Sulfate 2 Gm/50 ml) 50 ml @ 25 mls/hr ONCE ONCE IVPB Last administered on 04/22/17 10:21; Admin Dose 25 MLS/HR; Start at 10:00; Stop 04/22/17 at 11:59 Assessment/Plan Chief Complaint/Hosp Course 1. abnormal ECG 2. Sepsis 3. lactic acidosis 4. hx renal transplant 5. hx pancreatic transplant 6. 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 HX HTN 9. dyspnea Recommendations: IV fluid and antibiotic management as per internal medicine/ nephroogy team . Cultures to be followed up Aspirin resume low dose beta-janette as long as his blood pressure allows for it Echocardiogram will be checked as well. Adjustment of antirejection medication as per internal medicine/nephrology team. Thank you for his referral. I will continue to follow along with you. DONTA HAWLEY MD [facility] Problems: DONTA HAWLEY MD Apr 22, 2017 11:15
--- NOTE | 2017-04-22 11:25 | RADRPT ---
Echocardiogram Report Patient Name: GENE MURRAY Gender: Male Date: 1965 Study Date: 21-Apr-2017 Gun Perforator: Dillon Capps [facility] Location: [id number] Ref. Physician: DONTA HILL Quality: Adequate Procedures: Transthoracic echocardiogram with complete 2D, M-Mode, and doppler examination. Indications: MV Annuloplasty. Sepsis, a-fib. 2D/M Mode Doppler Measurement Value Normal Ranges Measurement Value Normal Ranges LVIDd 2D 4.0 3.5 - 5.6 cm AV Peak [place] 1.4 m/sec LVIDs 2D 2.6 2.1 - 4.1 cm AV Peak PG 8.0 mmHg FS 2D 33.7 % LVOT Peak [place] 1.3 m/sec LVPWd 2D 1.3 0.6 - 1.1 cm LVOT Peak PG 7.0 mmHg IVSd 2D 1.3 0.6 - 1.1 cm MV E Peak [place] 0.5 m/sec IVS/LVPW 2D 1.0 MV A Peak [place] 0.8 m/sec AoR Diam 2D 3.2 2.0 - 3.7 cm MV E/A 0.6 LA/Ao 2D 1 0 - 1 MV Decel Time 127 msec EDV 2D 61.6 cm3 MV E/A 0.6 ESV 2D 18.0 cm3 TR Peak [place] 2.7 m/sec LA Dimen 2D 3.2 2.3 - 4.0 cm TR Peak PG 28.0 mmHg RVSP 31.0 mmHg Findings Left Ventricle: Normal left ventricular systolic function. Normal left ventricular cavity size. Mild concentric left ventricular hypertrophy. Ejection fraction is visually estimated at 65 %. Tissue Doppler/Mitral Doppler indices are consistent with impaired relaxation (Stage I diastolic dysfunction). Right Ventricle: Normal right ventricular size. Normal right ventricular systolic function. Left Atrium: The left atrium is normal in size. Right Atrium: The right atrium is normal in size. Mitral Valve: Mild mitral leaflet calcification. Mild mitral annular calcification. Trace mitral regurgitation. Aortic Valve: No significant aortic stenosis. Aortic cusps appear mildly calcified. Mild aortic valve regurgitation. Tricuspid Valve: Normal appearance of the tricuspid valve. Estimated peak PA systolic pressure 31 mmHg. There is mild tricuspid regurgitation. Pericardium: Normal pericardium with no significant pericardial effusion. Aorta: Normal aortic root. IVC: Normal size and normal respiratory collapse consistent with normal right atrial pressure. Conclusions 1.Normal left ventricular systolic function. Normal left ventricular cavity size. Mild concentric left ventricular hypertrophy. Ejection fraction is visually estimated at 65 %. Tissue Doppler/Mitral Doppler indices are consistent with impaired relaxation (Stage I diastolic dysfunction). 2.The left atrium is normal in size. 3.Mild mitral leaflet calcification. Mild mitral annular calcification. Trace mitral regurgitation. 4.No significant aortic stenosis. Aortic cusps appear mildly calcified. Mild aortic valve regurgitation. 5.Normal appearance of the tricuspid valve. Estimated peak PA systolic pressure 31 mmHg. There is mild tricuspid regurgitation. Electronically Signed By: Donta Hill 22-Apr-2017 11:24:58 -0800 Patient Name: GENE MURRAY Study Date: 21-Apr-2017 [id number]
--- NOTE | 2017-04-22 11:55 | CONS ---
Date/Time of Note Date/Time of Note DATE: 04/22/17 TIME: 11:54 Assessment/Plan Assessment/Plan Chief Complaint/Hosp Course ID PROGRESS NOTE CURRENT ABX: DAY #2 =>Vanco x 1 on 04/21 + Cefepime #2 24H INTERVAL SUMMARY * Slender 51 yo M standing up next to bed holding IV pole reports he soiled himself while on his way to [facility], he has been ill w/fevers and weak, feels SOB with 100% OS sat on room air, tells me he has a dry cough w/intermittent GERD emesis into mouth w/coughing in addition to pain in his chest located right paraseptal subclavicular -- suspected esophagitis w/GERD. * CHART REVIEWED: See vitals, labs as per below. 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 Severe sepsis w/lactic acidosis on admission @ 5 -> 4.8 -> 1.8, leukocytosis 21.8 w/increased Neuts%, TMax 99.6, Tachycardia HR 112 => work up in process * Underlying etiology source is unclear => Dx viral syndrome vs pulmonary vs esophagitis ? * Hx of chronic recurrent nausea/vomiting, vs GERD emesis w/coughing * 04/21 BCx (-); Urine Cx (-); (-) Influenza A/B screen 2. Acute respiratory failure requiring supplemental O2, now on room air w/ subjective c/o dyspnea without wheeze * Patient's chest x-ray shows no acute findings. Continue supplemental oxygen PRN. Continue nebulizers. * Feels SOB with 100% OS sat on room air 3. Atypical chest pain -> w/subjective dyspnea => DDx GERD emesis w/ esophagitis ? * (+)Dry cough w/intermittent GERD emesis into mouth w/coughing in addition to pain in his chest located right paraseptal subclavicular -- suspected esophagitis w/GERD? * Lexiscan MPI 09/26/13:1. No evidence of perfusion defects or wall motion abnormalities. 2. The left ventricle ejection fraction at stress is 57%. 4. 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 * Etiology of acute kidney injury is likely secondary to hemodynamics, sepsis. * The possibility of acute rejection is always a consideration, although less likely given the acute presentation. 5. Nephrolithiasis = non-obstructing per CT: Small [place] kidneys with bilateral nonobstructing renal calculi with a pelvic renal allograft without evidence of urolithiasis or obstructive uropathy. 6. Scattered colonic diverticulosis without evidence of acute diverticulitis. 7. Constipation 8. Peripheral atherosclerotic calcifications. 9. HTN -> w/hypotension on admission 10. Hx of Atrial fibrillation ? * ECG reviewed sinus tachy marked ST T abn c/w ant and inf/lat ischemia. 11. Diabetes Mellitus 12. Scrotal hydrocele. 13.Hx of CMV virus 1 year postinfectious but that was treated with IV Valcyte without any further recurrence CMV 14. Anxiety disorder. Continue Xanax. 15. IMMUNOCOMPROMISED HOST: 2/2 Diabetes Mellitus + Immunosuppressive meds ( )MRSA (-) Influenza A/B Screen ABX ALLERGIES: None to ABX INVASIVES: PIV CURRENT ABX: DAY #2 =>Vanco x 1 on 04/21 + Cefepime #2 ID RECOMMENDATIONS/PLAN: 1. Continue current ABX over the weekend 2. ID team consultants will continue to follow . Problems: Consultation Date/Type/Reason Admit Date/Time Apr 21, 2017 at 10:23 Initial Consult Date 04/21/17 Referring Provider: JENNIFER MENDEZ DO Exam/Review of Systems Vital Signs Vitals Vital Signs Date Time Temp Pulse Resp B/P Pulse Ox O2 Delivery O2 Flow Rate FiO2 04/22/17 11:08 98.4 106 20 145/84 100 04/22/17 09:20 2.0 04/21/17 20:00 Nasal Cannula Intake and Output 04/21/17 04/21/17 04/22/17 15:00 23:00 07:00 Intake Total 2300 ml 500 ml 250 ml Balance 2300 ml 500 ml 250 ml Results Result Diagram: 04/22/17 0748 04/22/17 0748 Results 24 hrs Laboratory Tests Test 04/21/17 15:05 04/21/17 16:30 04/22/17 07:48 04/22/17 07:50 Lactic Acid Level 1.8 Urine Color ESTEFANY Urine Clarity SLIGHTLY CLOUDY A Urine pH 5.0 Urine Specific [place] 1.021 Urine Ketones TRACE A Urine Nitrite NEGATIVE Urine Bilirubin 1+ H Urine Urobilinogen 1+ H Urine Leukocyte Esterase NEGATIVE Urine Microscopic RBC 15 H Urine Microscopic WBC 0 Urine Hemoglobin NEGATIVE Urine Random Creatinine 333.11 Urine Random Sodium < 13 L Urine Glucose 1+ H Urine Total Protein 30.0 H White Blood Count 15.2 #H Red Blood Count 4.42 L Hemoglobin 14.0 Hematocrit 41.1 L Mean Corpuscular Volume 93.0 Mean Corpuscular Hemoglobin 31.7 Mean Corpuscular Hemoglobin Concent 34.1 Red Cell Distribution Width 13.7 Platelet Count 232 Mean Platelet Volume 11.1 H Neutrophils % 76.8 Lymphocytes % 12.8 L Monocytes % 9.5 Eosinophils % 0.1 Basophils % 0.3 Nucleated Red Blood Cells % 0.0 Neutrophils # 11.7 H Lymphocytes # 1.9 Monocytes # 1.4 H Eosinophils # 0.0 Basophils # 0.0 Nucleated Red Blood Cells # 0.0 Sodium Level 142 Potassium Level 3.5 Chloride Level 107 # Carbon Dioxide Level 26 Anion Gap 13 # Blood Urea Nitrogen 29 H Creatinine 1.99 #H Glucose Level 98 # Calcium Level 9.7 Phosphorus Level 3.4 Magnesium Level 1.6 L Total Bilirubin 0.7 Direct Bilirubin 0.00 Indirect Bilirubin 0.7 Aspartate Amino Transf (AST/SGOT) 29 Alanine Aminotransferase (ALT/SGPT) 27 Alkaline Phosphatase 53 Total Protein 6.2 # Albumin 3.3 # Globulin 2.90 Albumin/Globulin Ratio 1.13 Triglycerides Level 144 Cholesterol Level 130 LDL Cholesterol, Calculated 62 HDL Cholesterol 39 Cholesterol/HDL Ratio 3.3 Thyroid Stimulating Hormone (TSH) 2.210 Creatine Kinase 107 Creatine Kinase Index 0.9 Creatinine Kinase MB (Mass) 0.97 Troponin I 0.018 Medications Medications Current Medications Alprazolam (Xanax) 1 mg Q8 PRN PO ANXIETY Last administered on 04/22/17 11:47 ; Admin Dose 1 MG; Start 04/21/17 at 11:30 Mycophenolate Sodium (Myfortic) 360 mg Q12 PO Last administered on 04/22/17 09:48; Admin Dose 360 MG; Start 04/21/17 at 21:00 Ondansetron HCl (Zofran Odt) 4 mg Q6 PRN ODT NAUSEA AND/OR VOMITING Last administered on 04/22/17 10:21; Admin Dose 4 MG; Start 04/21/17 at 11:30 Prednisone (Prednisone) 5 mg DAILY PO Last administered on 04/22/17 09:47; Admin Dose 5 MG; Start 04/22/17 at 09:00 Tacrolimus 2 mg 2 mg Q12 PO Last administered on 04/22/17 09:47; Admin Dose 2 MG; Start 04/21/17 at 21:00 Sodium Chloride 1,000 ml @ 100 mls/hr Q10H IV ; Start 04/21/17 at 12:00 Cefepime HCl 50 ml @ 100 mls/hr BID IVPB Last administered on 04/22/17 09:48 ; Admin Dose 100 MLS/HR; Start 04/21/17 at 21:00 Sodium Chloride 1,000 ml @ 100 mls/hr Q10H IV Last administered on 04/22/17 05:52; Admin Dose 100 MLS/HR; Start 04/21/17 at 12:00 Magnesium Sulfate (Magnesium Sulfate 2 Gm/50 ml) 50 ml @ 25 mls/hr ONCE ONCE IVPB Last administered on 04/22/17 10:21; Admin Dose 25 MLS/HR; Start at 10:00; Stop 04/22/17 at 11:59 Metoprolol Tartrate (Lopressor) 25 mg BID PO ; Start 04/22/17 at 21:00 EDMOND AVALOS NP Apr 22, 2017 11:55
[2017-04-22] MEDS ORDERED: ONDANSETRON 4 MG INJ IV PRN (20:00)
[2017-04-22] MEDS: PANTOPRAZOLE 40 MG INJ IV SCH (20:29)
[2017-04-22] MEDS: METOPROLOL 25 MG TAB PO SCH (20:35)
[2017-04-23] VITALS (10 sets, daily range): BP systolic 121–140; BP diastolic 72–89; PULSE 74–95; RESP 16–20
[2017-04-23] MEDS: LORAZEPAM 1 MG TAB PO PRN ×3 (02:38→17:41)
[2017-04-23] MEDS: SOD CHLORIDE 0.9% 1,000 ML IV SCH ×3 (04:00→14:00)
[2017-04-23] MEDS: PANTOPRAZOLE 40 MG INJ IV SCH (06:23)
[2017-04-23] MEDS: ALPRAZOLAM 1 MG TAB PO PRN ×2 (06:23→21:01)
[2017-04-23 06:36] LABS: BASOPHIL # 0.1 10^3/ul (0.0-0.1); BASOPHILS % 0.4 % (0.0-2.0); EOSINOPHILS # 0.1 10^3/ul (0.0-0.5); EOSINOPHILS % 0.5 % (0.0-7.0); HEMATOCRIT 39.7 % (42.0-52.0); HEMOGLOBIN 13.8 g/dl (14.0-18.0); LYMPHOCYTES # 2.2 10^3/ul (0.8-2.9); LYMPHOCYTES % 17.1 % (15.0-51.0); MEAN CORPUSCULAR HEMOGLOBIN 32.2 pg (29.0-33.0); MEAN CORPUSCULAR HGB CONC 34.8 g/dl (32.0-37.0); MEAN CORPUSCULAR VOLUME 92.5 fl (82.0-101.0); MEAN PLATELET VOLUME 11.4 fl (7.4-10.4); MONOCYTE # 1.4 10^3/ul (0.3-0.9); MONOCYTES % 10.5 % (0.0-11.0); NEUTROPHIL # 9.2 10^3/ul (1.6-7.5); NEUTROPHILS % 71.1 % (39.0-77.0); PLATELET COUNT 233 10^3/UL (140-415); RED BLOOD COUNT 4.29 10^6/ul (4.70-6.10); RED CELL DISTRIBUTION WIDTH 13.6 % (11.5-14.5)
[2017-04-23 07:00] LABS: CALCIUM 9.2 mg/dl (8.4-10.2); CREATININE 1.65 mg/dl (0.61-1.24); PHOSPHORUS 2.9 mg/dl (2.5-4.9); POTASSIUM 3.4 mmol/L (3.5-5.1)
[2017-04-23] MEDS: MYCOPHENOLATE (SR) 180 MG TAB PO SCH ×2 (08:30→20:56)
[2017-04-23] MEDS: TACROLIMUS 1 MG CAP PO SCH ×2 (08:30→20:56)
[2017-04-23] MEDS: METOPROLOL 25 MG TAB PO SCH ×2 (08:30→20:56)
[2017-04-23] MEDS: CEFEPIME 1GM/50 ML (PMX) 50 ML IVPB SCH ×2 (08:30→20:55)
[2017-04-23] MEDS: predniSONE 5 MG TAB PO SCH (08:31)
--- NOTE | 2017-04-23 09:11 | PN ---
Date/Time of Note Date/Time of Note DATE: 04/23/17 TIME: 09:10 Assessment/Plan VTE Prophylaxis VTE Prophylaxis Intervention: other Lines/Catheters IV C[facility] Type [facility]from [facility] Peripheral IV Urinary Cath still in place: No Assessment/Plan Chief Complaint/Hosp Course This is a 51-year-old male with a past medical history of simultaneous renal and pancreatic transplant in 1999 with a baseline creatinine of 1.3 to 1.4 mg/ dL. Most recent creatinine was approximately 1.4 mg/dL approximately 2 months ago. The patient also has a history of CMV virus, a history of cyclic vomiting syndrome who presents to [facility] with several days of fevers, rigors, nausea, vomiting. The patient during this time was also having progressive nausea and vomiting. He stated his symptoms did not improve with his usual medical management of Zofran as well as cannabis. The patient stated yesterday his symptoms progressively got worse. He was unable to tolerate any p.o. including his immunosuppressive medications. As a result, the patient was brought into the emergency room for evaluation. Upon arrival, the patient had laboratory data which showed a white count of 21,000. The patient had a sodium 140, BUN is 33, creatinine 3.97. Lactic acid 5.0. Chest x-ray was obtained which showed no acute pathology. In the emergency room, the patient was diagnosed with possible sepsis. He was started on sepsis protocol. He was given IV hydration, IV fluids, IV antibiotics of vancomycin and Zosyn. There have been no other acute processes noted. In terms of the patient's renal history, as stated above, the patient has history of simultaneous pancreatic and renal transplant 17 years ago. The patient's baseline renal function and creatinine is around 1.4 mg/dL. The patient previously did have a complication of CMV virus 1 year postinfectious but that was treated with IV Valcyte without any further recurrence CMV. The patient's renal function is otherwise stable without any further complications. There has been no further reports of any hemoptysis, hematemesis, hematochezia. his kidney allograft function is improving good uop less anxious REVIEW OF SYSTEMS: A 14-point review of systems was conducted. Pertinent positives stated in HPI, otherwise negative. PHYSICAL EXAMINATION: HEENT: Head is normocephalic. Pupils are reactive to light. NECK: Supple. HEART: Regular rate. LUNGS: Show diminished breath sounds at base. ABDOMEN: Soft, nontender to palpation. No rebound or guarding. EXTREMITIES: Negative for clubbing, cyanosis, no edema. DERMATOLOGIC: No rashes. MUSCULOSKELETAL: No joint effusions. NEUROLOGIC: No focal deficits. ASSESSMENT AND PLAN: This is a 51-year-old male who presents with: 1. possible sepsis in an immunocompromised patient. Underlying etiology source is unclear. We will follow up blood cultures. We will continue the patient on broad-spectrum antibiotics with vancomycin and Zosyn. Continue aggressive IV hydration. 2. Acute respiratory failure. resolved 3. 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 Etiology of acute kidney injury is likely secondary to hemodynamics, sepsis. improving. We will continue current immunosuppressive regimen, will likely need to adjust Prograf dosing. 4. Status post simultaneous pancreatic and kidney transplant with a baseline creatinine of 1.4 mg/dL. Patient is currently in acute kidney injury as stated above. We will continue current medical management. 5. History of chronic nausea and vomiting. Continue Zofran. Continue Ativan p.r.n. 6. Anxiety disorder. Continue Xanax. 7. History of hypertension. Patient is currently hypotensive. We will hold beta janette, monitor. 8. Gastrointestinal and deep venous thrombosis prophylaxis. We will give proton pump inhibitor and Lovenox. Problems: Exam/Review of Systems Vital Signs Vitals Vital Signs Date Time Temp Pulse Resp B/P Pulse Ox O2 Delivery O2 Flow Rate FiO2 04/23/17 09:04 77 04/23/17 08:18 98.1 20 129/76 94 04/22/17 20:00 Nasal Cannula 2.0 Intake and Output 04/22/17 04/22/17 04/23/17 14:59 22:59 06:59 Intake Total 800 ml Balance 800 ml Results Result Diagram: 04/23/17 0604/23/17 0605 Results 24 hrs Laboratory Tests Test 04/23/17 06:05 White Blood Count 13.0 H Red Blood Count 4.29 L Hemoglobin 13.8 L Hematocrit 39.7 L Mean Corpuscular Volume 92.5 Mean Corpuscular Hemoglobin 32.2 Mean Corpuscular Hemoglobin Concent 34.8 Red Cell Distribution Width 13.6 Platelet Count 233 Mean Platelet Volume 11.4 H Neutrophils % 71.1 Lymphocytes % 17.1 Monocytes % 10.5 Eosinophils % 0.5 Basophils % 0.4 Nucleated Red Blood Cells % 0.0 Neutrophils # 9.2 H Lymphocytes # 2.2 Monocytes # 1.4 H Eosinophils # 0.1 Basophils # 0.1 Nucleated Red Blood Cells # 0.0 D-Dimer 229.00 D-Dimer Comment Sodium Level 142 Potassium Level 3.4 L Chloride Level 106 Carbon Dioxide Level 23 Anion Gap 16 Blood Urea Nitrogen 25 H Creatinine 1.65 H Glucose Level 102 Calcium Level 9.2 Phosphorus Level 2.9 Magnesium Level 2.0 Medications Medications Current Medications Alprazolam (Xanax) 1 mg Q8 PRN PO ANXIETY Last administered on 04/23/17 06:23 ; Admin Dose 1 MG; Start 04/21/17 at 11:30 Mycophenolate Sodium (Myfortic) 360 mg Q12 PO Last administered on 04/23/17 08:30; Admin Dose 360 MG; Start 04/21/17 at 21:00 Ondansetron HCl (Zofran Odt) 4 mg Q6 PRN ODT NAUSEA AND/OR VOMITING Last administered on 04/22/17 10:21; Admin Dose 4 MG; Start 04/21/17 at 11:30 Prednisone (Prednisone) 5 mg DAILY PO Last administered on 04/23/17 08:31; Admin Dose 5 MG; Start 04/22/17 at 09:00 Tacrolimus 2 mg 2 mg Q12 PO Last administered on 04/23/17 08:30; Admin Dose 2 MG; Start 04/21/17 at 21:00 Sodium Chloride 1,000 ml @ 100 mls/hr Q10H IV ; Start 04/21/17 at 12:00 Cefepime HCl 50 ml @ 100 mls/hr BID IVPB Last administered on 04/23/17 08:30 ; Admin Dose 100 MLS/HR; Start 04/21/17 at 21:00 Sodium Chloride (NS) 1,000 ml @ 100 mls/hr Q10H IV Last administered on 06:24; Admin Dose 100 MLS/HR; Start 04/21/17 at 12:00 Metoprolol Tartrate (Lopressor) 25 mg BID PO Last administered on 04/23/17 08 :30; Admin Dose 25 MG; Start 04/22/17 at 21:00 Pantoprazole (Protonix Iv) 40 mg DAILY@06 IV Last administered on 04/23/17 06 :23; Admin Dose 40 MG; Start 04/22/17 at 20:00 Ondansetron HCl (Zofran Inj) 4 mg Q6H PRN IV NAUSEA AND/OR VOMITING Last administered on 04/22/17 20:29; Admin Dose 4 MG; Start 04/22/17 at 20:00 Lorazepam (Ativan) 1 mg Q6H PRN PO AGITATION/ANXIETY Last administered on 04/23 08:30; Admin Dose 1 MG; Start 04/22/17 at 20:00 MAVERICK QUIÑONES DO Apr 23, 2017 09:11
--- NOTE | 2017-04-23 10:59 | CONS ---
Date/Time of Note Date/Time of Note DATE: 04/23/17 TIME: 10:57 Consult Date/Type/Reason Admit Date/Time Apr 21, 2017 at 10:23 Initial Consult Date 04/21/17 Ordering Provider: JENNIFER MENDEZ DO Subjective cardiology followup note: S: Dw/ staff and rhythm was reviewed. pt remains in NSR NO CHEST PAIN pt with less sob no palpitations O: General: appears less anxious now. HEENT: NC/AT. pupils are equal. round. NECK: NO JVD. no stridor. CV: tachycardic. systolic murmur; no gallop or rubs. PULM: no wheezing or rhonchi. GI: SOFT, ND, no rebound or guarding Extremity: trace B/L LE edema. no clubbing. neuro: awake and alert, OX3. Psych: calm and pleasant rectal: deferred Derm: multiple tattoos ECG reviewed sinus tachy marked ST T abn c/w ant and inf/lat ischemia. CXR reviewed. lexiscan 09/26/13: 1. No evidence of perfusion defects or wall motion abnormalities. 2. The left ventricle ejection fraction at stress is 57%. Objective Vital Signs Date Time Temp Pulse Resp B/P Pulse Ox O2 Delivery O2 Flow Rate FiO2 04/23/17 09:04 77 04/23/17 08:18 98.1 20 129/76 94 04/22/17 20:00 Nasal Cannula 2.0 Intake and Output 04/22/17 04/22/17 04/23/17 15:00 23:00 07:00 Intake Total 800 ml Balance 800 ml Results/Medications Result Diagram: 04/23/17 0605 04/23/17 0605 Results 24 hrs Laboratory Tests Test 04/23/17 06:05 White Blood Count 13.0 H Red Blood Count 4.29 L Hemoglobin 13.8 L Hematocrit 39.7 L Mean Corpuscular Volume 92.5 Mean Corpuscular Hemoglobin 32.2 Mean Corpuscular Hemoglobin Concent 34.8 Red Cell Distribution Width 13.6 Platelet Count 233 Mean Platelet Volume 11.4 H Neutrophils % 71.1 Lymphocytes % 17.1 Monocytes % 10.5 Eosinophils % 0.5 Basophils % 0.4 Nucleated Red Blood Cells % 0.0 Neutrophils # 9.2 H Lymphocytes # 2.2 Monocytes # 1.4 H Eosinophils # 0.1 Basophils # 0.1 Nucleated Red Blood Cells # 0.0 D-Dimer 229.00 D-Dimer Comment Sodium Level 142 Potassium Level 3.4 L Chloride Level 106 Carbon Dioxide Level 23 Anion Gap 16 Blood Urea Nitrogen 25 H Creatinine 1.65 H Glucose Level 102 Calcium Level 9.2 Phosphorus Level 2.9 Magnesium Level 2.0 Medications Current Medications Alprazolam (Xanax) 1 mg Q8 PRN PO ANXIETY Last administered on 04/23/17 06:23 ; Admin Dose 1 MG; Start 04/21/17 at 11:30 Mycophenolate Sodium (Myfortic) 360 mg Q12 PO Last administered on 04/23/17 08:30; Admin Dose 360 MG; Start 04/21/17 at 21:00 Ondansetron HCl (Zofran Odt) 4 mg Q6 PRN ODT NAUSEA AND/OR VOMITING Last administered on 04/22/17 10:21; Admin Dose 4 MG; Start 04/21/17 at 11:30 Prednisone (Prednisone) 5 mg DAILY PO Last administered on 04/23/17 08:31; Admin Dose 5 MG; Start 04/22/17 at 09:00 Tacrolimus 2 mg 2 mg Q12 PO Last administered on 04/23/17 08:30; Admin Dose 2 MG; Start 04/21/17 at 21:00 Cefepime HCl 50 ml @ 100 mls/hr BID IVPB Last administered on 04/23/17 08:30 ; Admin Dose 100 MLS/HR; Start 04/21/17 at 21:00 Sodium Chloride (NS) 1,000 ml @ 100 mls/hr Q10H IV Last administered on 06:24; Admin Dose 100 MLS/HR; Start 04/21/17 at 12:00 Metoprolol Tartrate (Lopressor) 25 mg BID PO Last administered on 04/23/17 08 :30; Admin Dose 25 MG; Start 04/22/17 at 21:00 Pantoprazole (Protonix Iv) 40 mg DAILY@06 IV Last administered on 04/23/17 06 :23; Admin Dose 40 MG; Start 04/22/17 at 20:00 Ondansetron HCl (Zofran Inj) 4 mg Q6H PRN IV NAUSEA AND/OR VOMITING Last administered on 04/22/17 20:29; Admin Dose 4 MG; Start 04/22/17 at 20:00 Lorazepam 1 mg 1 mg Q6H PRN PO AGITATION/ANXIETY Last administered on 08:30; Admin Dose 1 MG; Start 04/22/17 at 20:00 Potassium Chloride/Sodium Chloride (KCl/NS) 1,020 ml @ 100 mls/hr [id number] IV ; Start 04/23/17 at 11:00 Assessment/Plan Chief Complaint/Hosp Course 1. abnormal ECG 2. Sepsis 3. lactic acidosis 4. hx renal transplant 5. hx pancreatic transplant 6. 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 HX HTN 9. dyspnea Recommendations: IV fluid and antibiotic management as per internal medicine/ nephroogy team . Cultures to be followed up Aspirin cont beta-janette Echocardiogram reviewed. Adjustment of antirejection medication as per internal medicine/nephrology team. Thank you for his referral. I will continue to follow along with you. DONTA HAWLEY MD [facility] Problems: DONTA HAWLEY MD Apr 23, 2017 10:59
[2017-04-23] MEDS: CALCIUM CARBONATE 750 MG CHEW TAB PO SCH ×2 (12:45→17:41)
[2017-04-23] MEDS: POTASSIUM CHLORIDE 40 MEQ in SOD CHLORIDE 0.9% 1,000 ML IV SCH ×2 (14:14→21:02)
--- NOTE | 2017-04-23 14:59 | CONS ---
Date/Time of Note Date/Time of Note DATE: 04/23/17 TIME: 14:50 Assessment/Plan Assessment/Plan Chief Complaint/Hosp Course ID PROGRESS NOTE CURRENT ABX: DAY #3 =>Vanco iv + Cefepime #2 24H INTERVAL SUMMARY * A/A/O WBC down, afebrile today, still feels weak, lactic acid normalized 1.8, lipase 33 * Patient describes ongoing sxs of GERD w/coughing acid emesis into his mouth associated w/feeling "cold" and orthostatic hypotension => to me this sounds like vasovagal symptomatology associated w/GERD/cough/emesis -> Sepsis source unclear ? Possible esophagitis vs gastritis ? * CHART REVIEWED: See vitals, labs as per below. 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 Severe sepsis w/lactic acidosis on admission @ 5 -> 4.8 -> 1.8, leukocytosis 21.8 w/increased Neuts%, TMax 99.6, Tachycardia HR 112 => work up in process * Underlying etiology source is unclear => Dx viral syndrome vs pulmonary vs esophagitis ? * Hx of chronic recurrent nausea/vomiting, vs GERD emesis w/coughing * 04/21 BCx (-); Urine Cx (-); (-) Influenza A/B screen 2. Acute respiratory failure requiring supplemental O2, now on room air w/ subjective c/o dyspnea without wheeze * Patient's chest x-ray shows no acute findings. Continue supplemental oxygen PRN. Continue nebulizers. * Feels SOB with 100% OS sat on room air 3. Atypical chest pain -> w/subjective dyspnea => DDx GERD emesis w/ esophagitis ? * (+)Dry cough w/intermittent GERD emesis into mouth w/coughing in addition to pain in his chest located right paraseptal subclavicular -- suspected esophagitis w/GERD? * Lexiscan MPI 09/26/13:1. No evidence of perfusion defects or wall motion abnormalities. 2. The left ventricle ejection fraction at stress is 57%. 4. 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 * Etiology of acute kidney injury is likely secondary to hemodynamics, sepsis. * The possibility of acute rejection is always a consideration, although less likely given the acute presentation. 5. Nephrolithiasis = non-obstructing * per CT: Small platinum kidneys with bilateral nonobstructing renal calculi with a pelvic renal allograft without evidence of urolithiasis or obstructive uropathy. 6. Scattered colonic diverticulosis without evidence of acute diverticulitis. 7. Constipation 8. Peripheral atherosclerotic calcifications. 9. HTN -> w/hypotension on admission 10. Hx of Atrial fibrillation ? * ECG reviewed sinus tachy marked ST T abn c/w ant and inf/lat ischemia. 11. Diabetes Mellitus 12. Scrotal hydrocele. 13.Hx of CMV virus 1 year postinfectious but that was treated with IV Valcyte without any further recurrence CMV 14. Anxiety disorder. Continue Xanax. 15. IMMUNOCOMPROMISED HOST: 2/2 Diabetes Mellitus + Immunosuppressive meds ( )MRSA (-) Influenza A/B Screen ABX ALLERGIES: None to ABX INVASIVES: PIV CURRENT ABX: DAY #3 =>Vanco + Cefepime ID RECOMMENDATIONS/PLAN: 1. Consider GI consult for EGD 2. Patient describes ongoing sxs of GERD w/coughing acid emesis into his mouth associated w/feeling "cold" and orthostatic hypotension * => to me this sounds like vasovagal symptomatology associated w/GERD/cough/ emesis * => Sepsis source unclear ? Viral syndrome vs possible esophagitis vs gastritis ? * Check stool for H. Pylori . Problems: Consultation Date/Type/Reason Admit Date/Time Apr 21, 2017 at 10:23 Initial Consult Date 04/21/17 Referring Provider: JENNIFER MENDEZ DO Exam/Review of Systems Vital Signs Vitals Vital Signs Date Time Temp Pulse Resp B/P Pulse Ox O2 Delivery O2 Flow Rate FiO2 04/23/17 12:14 79 04/23/17 11:36 98.0 20 121/74 100 04/22/17 20:00 Nasal Cannula 2.0 Intake and Output 04/22/17 04/22/17 04/23/17 14:59 22:59 06:59 Intake Total 800 ml Balance 800 ml Results Result Diagram: 04/23/1760404/23/17 06 Results 24 hrs Laboratory Tests Test 04/23/17 06:05 White Blood Count 13.0 H Red Blood Count 4.29 L Hemoglobin 13.8 L Hematocrit 39.7 L Mean Corpuscular Volume 92.5 Mean Corpuscular Hemoglobin 32.2 Mean Corpuscular Hemoglobin Concent 34.8 Red Cell Distribution Width 13.6 Platelet Count 233 Mean Platelet Volume 11.4 H Neutrophils % 71.1 Lymphocytes % 17.1 Monocytes % 10.5 Eosinophils % 0.5 Basophils % 0.4 Nucleated Red Blood Cells % 0.0 Neutrophils # 9.2 H Lymphocytes # 2.2 Monocytes # 1.4 H Eosinophils # 0.1 Basophils # 0.1 Nucleated Red Blood Cells # 0.0 D-Dimer 229.00 D-Dimer Comment Sodium Level 142 Potassium Level 3.4 L Chloride Level 106 Carbon Dioxide Level 23 Anion Gap 16 Blood Urea Nitrogen 25 H Creatinine 1.65 H Glucose Level 102 Calcium Level 9.2 Phosphorus Level 2.9 Magnesium Level 2.0 Medications Medications Current Medications Alprazolam (Xanax) 1 mg Q8 PRN PO ANXIETY Last administered on 04/23/17 06:23 ; Admin Dose 1 MG; Start 04/21/17 at 11:30 Mycophenolate Sodium (Myfortic) 360 mg Q12 PO Last administered on 04/23/17 08:30; Admin Dose 360 MG; Start 04/21/17 at 21:00 Ondansetron HCl (Zofran Odt) 4 mg Q6 PRN ODT NAUSEA AND/OR VOMITING Last administered on 04/22/17 10:21; Admin Dose 4 MG; Start 04/21/17 at 11:30 Prednisone (Prednisone) 5 mg DAILY PO Last administered on 04/23/17 08:31; Admin Dose 5 MG; Start 11/18/17 at 09:00 Tacrolimus 2 mg 2 mg Q12 PO Last administered on 04/23/17 08:30; Admin Dose 2 MG; Start 04/21/17 at 21:00 Cefepime HCl 50 ml @ 100 mls/hr BID IVPB Last administered on 04/23/17 08:30 ; Admin Dose 100 MLS/HR; Start 04/21/17 at 21:00 Sodium Chloride (NS) 1,000 ml @ 100 mls/hr Q10H IV Last administered on 06:24; Admin Dose 100 MLS/HR; Start 04/21/17 at 12:00 Metoprolol Tartrate (Lopressor) 25 mg BID PO Last administered on 04/23/17 08 :30; Admin Dose 25 MG; Start 04/22/17 at 21:00 Pantoprazole (Protonix Iv) 40 mg DAILY@06 IV Last administered on 04/23/17 06 :23; Admin Dose 40 MG; Start 04/22/17 at 20:00 Ondansetron HCl (Zofran Inj) 4 mg Q6H PRN IV NAUSEA AND/OR VOMITING Last administered on 04/22/17 20:29; Admin Dose 4 MG; Start 04/22/17 at 20:00 Lorazepam 1 mg 1 mg Q6H PRN PO AGITATION/ANXIETY Last administered on 08:30; Admin Dose 1 MG; Start 04/22/17 at 20:00 Potassium Chloride/Sodium Chloride (KCl/NS) 1,020 ml @ 100 mls/hr [id number] IV Last administered on 04/23/17 14:14; Admin Dose 100 MLS/HR; Start 04/23/17 at 11:00 EDMOND AVALOS NP Apr 23, 2017 14:59
[2017-04-23] MEDS ORDERED: ACETAMINOPHEN 325 MG TAB PO PRN (23:30)
[2017-04-24] VITALS (12 sets, daily range): BP systolic 127–149; BP diastolic 80–91; PULSE 66–94; RESP 18–20
[2017-04-24] MEDS: POTASSIUM CHLORIDE 40 MEQ in SOD CHLORIDE 0.9% 1,000 ML IV SCH (00:12)
[2017-04-24] MEDS: PANTOPRAZOLE (EC) 40 MG TAB PO SCH (05:04)
[2017-04-24] MEDS: LORAZEPAM 1 MG TAB PO PRN (05:04)
[2017-04-24 06:35] LABS: BASOPHILS % 0.5 % (0.0-2.0); EOSINOPHILS # 0.1 10^3/ul (0.0-0.5); EOSINOPHILS % 1.3 % (0.0-7.0); HEMATOCRIT 36.8 % (42.0-52.0); HEMOGLOBIN 12.6 g/dl (14.0-18.0); LYMPHOCYTES # 1.9 10^3/ul (0.8-2.9); LYMPHOCYTES % 22.2 % (15.0-51.0); MEAN CORPUSCULAR HGB CONC 34.2 g/dl (32.0-37.0); MEAN CORPUSCULAR VOLUME 93.4 fl (82.0-101.0); MEAN PLATELET VOLUME 11.3 fl (7.4-10.4); MONOCYTES % 11.4 % (0.0-11.0); NEUTROPHIL # 5.4 10^3/ul (1.6-7.5); NEUTROPHILS % 64.2 % (39.0-77.0); PLATELET COUNT 199 10^3/UL (140-415); RED BLOOD COUNT 3.94 10^6/ul (4.70-6.10); RED CELL DISTRIBUTION WIDTH 13.7 % (11.5-14.5); WHITE BLOOD COUNT 8.4 10^3/ul (4.8-10.8)
[2017-04-24 07:31] LABS: CREATININE 1.17 mg/dl (0.61-1.24); MAGNESIUM 1.7 mg/dl (1.7-2.5); PHOSPHORUS 1.4 mg/dl (2.5-4.9); POTASSIUM 3.9 mmol/L (3.5-5.1)
[2017-04-24] MEDS: TACROLIMUS 1 MG CAP PO SCH ×2 (09:16→20:35)
[2017-04-24] MEDS: CEFEPIME 1GM/50 ML (PMX) 50 ML IVPB SCH ×2 (09:16→20:31)
[2017-04-24] MEDS: METOPROLOL 25 MG TAB PO SCH (09:17)
[2017-04-24] MEDS: MYCOPHENOLATE (SR) 180 MG TAB PO SCH ×2 (09:17→20:35)
[2017-04-24] MEDS: CALCIUM CARBONATE 750 MG CHEW TAB PO SCH ×3 (09:17→20:30)
[2017-04-24] MEDS: predniSONE 5 MG TAB PO SCH (09:17)
[2017-04-24] MEDS ORDERED: MAGNESIUM SULFATE 2 GM/50 ML 50 ML IVPB ONE (09:30)
--- NOTE | 2017-04-24 10:37 | PN ---
DATE: 04/24/2017 SUBJECTIVE: The patient is stable. No events overnight. No fevers, chills, nausea, vomiting. The patient is requesting to go home. OBJECTIVE: VITAL SIGNS: Blood pressure is 141/88, respiration 18, pulse 78, temperature 98.0. HEENT: Head is normocephalic. NECK: Supple. HEART: Regular rate. LUNGS: Show diminished breath sounds at base. ABDOMEN: Soft, nontender to palpation. No rebound or guarding. EXTREMITIES: Negative for clubbing, cyanosis, no edema. DERMATOLOGIC: No rashes. MUSCULOSKELETAL: No joint effusions. NEUROLOGIC: No change in exam. MEDICATIONS: The patient's medications have been reviewed. LABORATORY DATA: Shows white count 8.4, hemoglobin 10.6, platelet count is 139. Sodium 149, potass ium 3.9, BUN 17, creatinine 1.17, phosphorus is 1.4. ASSESSMENT AND PLAN: 1. Sepsis, underlying source is unclear. The patient has clinically improved with IV antibiotics. The patient's blood cultures have been negative to date. The patient's white count has normalized. At this point, continue current treatment plan. We will discuss with infectious disease about tra nsitioning patient to oral antibiotics and possible discharge home. 2. Acute respiratory failure secondary to sepsis, resolved. 3. Nonoliguric acute kidney injury on top of chronic allograft failure with previous baseline creat inine 1.4 mg/dL. Etiology of acute kidney injury is secondary to hemodynamics. Renal function is c urrently back to previous baseline. 4. Status post simultaneous pancreatic and kidney transplant with excellent allograft function. Th e patient's renal function has returned back to baseline. Continue to monitor. 5. History of nausea and vomiting. Continue Zofran. 6. Anxiety disorder. Continue Xanax. 7. Hypertension. Continue current blood pressure regimen. 8. Gastrointestinal and deep venous thrombosis prophylaxis. Continue proton pump inhibitor and Roberta enox. Dictated By: JENNIFER ELIAS/MAYTE Conf#: [id number] DID#: [id number]
--- NOTE | 2017-04-24 16:47 | CONS ---
Date/Time of Note Date/Time of Note DATE: 04/24/17 TIME: 16:40 Consult Date/Type/Reason Admit Date/Time Apr 21, 2017 at 10:23 Initial Consult Date 04/21/17 Type of Consultation: CARDIOLOGY Ordering Provider: JENNIFER MNEDEZ DO Subjective cardiology followup note: S: Dw/ staff and rhythm was reviewed. pt remains in NSR NO CHEST PAIN now pt with less sob no palpitations he feels much better and wants to go home soon. no more N/V d/w friends. O: General: appears less anxious now. HEENT: NC/AT. pupils are equal. round. NECK: NO JVD. no stridor. CV: tachycardic. systolic murmur; no gallop or rubs. PULM: no wheezing or rhonchi. GI: SOFT, ND, no rebound or guarding Extremity: trace B/L LE edema. no clubbing. neuro: awake and alert, OX3. Psych: calm and pleasant rectal: deferred Derm: multiple tattoos ECG reviewed sinus tachy marked ST T abn c/w ant and inf/lat ischemia. CXR reviewed. lexiscan 09/26/13: 1. No evidence of perfusion defects or wall motion abnormalities. 2. The left ventricle ejection fraction at stress is 57%. Objective Vital Signs Date Time Temp Pulse Resp B/P Pulse Ox O2 Delivery O2 Flow Rate FiO2 04/24/17 16:15 78 04/24/17 16:14 98.0 18 141/91 93 04/24/17 04:00 Nasal Cannula 2.0 Intake and Output 04/23/17 04/23/17 04/24/17 15:00 23:00 07:00 Intake Total 1050 ml 1400 ml Output Total 950 ml Balance 1050 ml 450 ml Results/Medications Result Diagram: 04/24/17 0556 04/24/17 0556 Results 24 hrs Laboratory Tests Test 04/24/17 05:56 White Blood Count 8.4 # Red Blood Count 3.94 L Hemoglobin 12.6 L Hematocrit 36.8 L Mean Corpuscular Volume 93.4 Mean Corpuscular Hemoglobin 32.0 Mean Corpuscular Hemoglobin Concent 34.2 Red Cell Distribution Width 13.7 Platelet Count 199 Mean Platelet Volume 11.3 H Neutrophils % 64.2 Lymphocytes % 22.2 Monocytes % 11.4 H Eosinophils % 1.3 Basophils % 0.5 Nucleated Red Blood Cells % 0.0 Neutrophils # 5.4 Lymphocytes # 1.9 Monocytes # 1.0 H Eosinophils # 0.1 Basophils # 0.0 Nucleated Red Blood Cells # 0.0 Sodium Level 141 Potassium Level 3.9 Chloride Level 108 Carbon Dioxide Level 25 Anion Gap 12 Blood Urea Nitrogen 17 Creatinine 1.17 Glucose Level 80 Calcium Level 9.0 Phosphorus Level 1.4 #L Magnesium Level 1.7 Medications Current Medications Alprazolam (Xanax) 1 mg Q8 PRN PO ANXIETY Last administered on 04/23/17 21:01 ; Admin Dose 1 MG; Start 04/21/17 at 11:30 Mycophenolate Sodium (Myfortic) 360 mg Q12 PO Last administered on 04/24/17 09:17; Admin Dose 360 MG; Start 04/21/17 at 21:00 Ondansetron HCl (Zofran Odt) 4 mg Q6 PRN ODT NAUSEA AND/OR VOMITING Last administered on 04/22/17 10:21; Admin Dose 4 MG; Start 04/21/17 at 11:30 Prednisone (Prednisone) 5 mg DAILY PO Last administered on 04/24/17 09:17; Admin Dose 5 MG; Start 04/22/17 at 09:00 Tacrolimus 2 mg 2 mg Q12 PO Last administered on 04/24/17 09:16; Admin Dose 2 MG; Start 04/21/17 at 21:00 Cefepime HCl (Maxipime 1gm/50 ml (Pmx)) 50 ml @ 100 mls/hr BID IVPB Last administered on 04/24/17 09:16; Admin Dose 100 MLS/HR; Start 04/21/17 at 21: 00 Metoprolol Tartrate (Lopressor) 25 mg BID PO Last administered on 04/24/17 09 :17; Admin Dose 25 MG; Start 04/22/17 at 21:00 Ondansetron HCl (Zofran Inj) 4 mg Q6H PRN IV NAUSEA AND/OR VOMITING Last administered on 04/22/17 20:29; Admin Dose 4 MG; Start 04/22/17 at 20:00 Lorazepam (Ativan) 1 mg Q6H PRN PO AGITATION/ANXIETY Last administered on 04/24 05:04; Admin Dose 1 MG; Start 04/22/17 at 20:00 Pantoprazole (Protonix Tab) 40 mg DAILY@06 PO Last administered on 04/24/17 05:04; Admin Dose 40 MG; Start 04/24/17 at 06:00 Acetaminophen (Tylenol Tab) 650 mg Q6H PRN PO PAIN AND OR ELEVATED TEMP Last administered on 04/24/17 00:10; Admin Dose 650 MG; Start 04/23/17 at 23:30 Assessment/Plan Chief Complaint/Hosp Course 1. abnormal ECG: R/O CAD 2. Sepsis 3. lactic acidosis 4. hx renal transplant 5. hx pancreatic transplant 6. 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 HX HTN 9. dyspnea Recommendations: IV fluid and antibiotic management as per internal medicine/ nephroogy team . Cultures to be followed up [employer] beta-janette Echocardiogram reviewed. Adjustment of antirejection medication as per internal medicine/nephrology team. will schedule for lexiscan tomorrow to r/o underlying ischemia. Thank you for his referral. I will continue to follow along with you. DONTA HAWLEY MD [facility] Problems: DONTA HAWLEY MD Apr 24, 2017 16:47
[2017-04-24 17:02] LABS: MICROALBUMIN 3.4 mg/dL
[2017-04-24] MEDS: METOPROLOL 50 MG TAB PO SCH (20:34)
[2017-04-24] MEDS: ALPRAZOLAM 1 MG TAB PO PRN (21:58)
[2017-04-25] MEDS: LORAZEPAM 1 MG TAB PO PRN (00:43)
[2017-04-25 05:00] VITALS: BP 134/81; PULSE 88; RESP 20
[2017-04-25 05:24] LABS: BASOPHIL # 0.1 10^3/ul (0.0-0.1); BASOPHILS % 0.8 % (0.0-2.0); EOSINOPHILS # 0.1 10^3/ul (0.0-0.5); EOSINOPHILS % 1.5 % (0.0-7.0); HEMATOCRIT 37.3 % (42.0-52.0); HEMOGLOBIN 12.9 g/dl (14.0-18.0); LYMPHOCYTES % 24.7 % (15.0-51.0); MEAN CORPUSCULAR HEMOGLOBIN 31.9 pg (29.0-33.0); MEAN CORPUSCULAR HGB CONC 34.6 g/dl (32.0-37.0); MEAN CORPUSCULAR VOLUME 92.3 fl (82.0-101.0); MEAN PLATELET VOLUME 11.2 fl (7.4-10.4); MONOCYTE # 0.8 10^3/ul (0.3-0.9); MONOCYTES % 9.9 % (0.0-11.0); NEUTROPHILS % 62.8 % (39.0-77.0); PLATELET COUNT 202 10^3/UL (140-415); RED BLOOD COUNT 4.04 10^6/ul (4.70-6.10); RED CELL DISTRIBUTION WIDTH 13.2 % (11.5-14.5)
[2017-04-25] MEDS: PANTOPRAZOLE (EC) 40 MG TAB PO SCH (05:25)
[2017-04-25 05:47] LABS: ALBUMIN 3.3 g/dl (3.3-4.9); ALBUMIN/GLOBULIN RATIO 1.13; BILIRUBIN,INDIRECT 0.7 mg/dl (0-1.1); BILIRUBIN,TOTAL 0.7 mg/dl (0.2-1.3); CALCIUM 9.2 mg/dl (8.4-10.2); CREATININE 1.04 mg/dl (0.61-1.24); MAGNESIUM 1.9 mg/dl (1.7-2.5); POTASSIUM 3.5 mmol/L (3.5-5.1); TOTAL PROTEIN 6.2 g/dl (6.1-8.1)
--- NOTE | 2017-04-25 06:59 | PN ---
DATE: 04/24/2017 SUBJECTIVE: No acute changes. The patient is alert, feels good. Denies pain, discomfort, no fever s. WBC today 8.4, no shift, no bands. BUN 17, creatinine 1.17. MICROBIOLOGY: All cultures have been negative. DIAGNOSTICS: Chest x-ray since admission revealed no acute disease. CT of the abdomen and pelvis s rafi admission and this revealed no evidence of lithiasis or obstructive uropathy. Scattered colon ic diverticulosis without evidence of acute diverticulitis. Moderate scattered cecal residue sugges ting constipation, hydrocele and atherosclerotic calcification. ANTIMICROBIALS: The patient is on cefepime day #4. PHYSICAL EXAMINATION: GENERAL: This is a well-nourished, well-developed 51-year-old white male, who is alert, in no distr ess. HEENT: Head atraumatic, normocephalic. Sclerae anicteric. Buccal mucosa dry. NECK: Supple. CHEST: Rise symmetrical. Breath sounds diminished to bases. HEART: S1, S2. ABDOMEN: Soft, bowel sounds present. EXTREMITIES: Without cyanosis or edema. ASSESSMENT: 1. Resolving sepsis, etiology unclear. 2. Status post acute respiratory failure. 3. Resolving acute kidney insufficiency. 4. History of pancreatic and kidney transplant, remains on immunosuppressive therapy. 5. Hypertension. 6. Anxiety disorder. PLAN: The patient remains stable, overall improving. Again, he is on cefepime, day #4. We are goi ng to keep him on antibiotics overnight, and if he remains stable and afebrile, we will discontinue antibiotics tomorrow and observe him. Dictated By: FREEMAN RENNER PENOLOGY PROFESSOR for RADHA MONTOYA/MAYTE Conf#: [id number] DID#: [id number] CC: JENNIFER MENDEZ DO;*EndCC*
[2017-04-25 07:27] LABS: CREATINE KINASE 62 IU/L (23-200)
[2017-04-25 07:50] VITALS: BP 131/69; RESP 19
[2017-04-25 07:52] LABS: TROPONIN-I < 0.012 ng/ml (0.00-0.12)
[2017-04-25 07:53] LABS: CK-MB 0.73 ng/ml (0.0-2.4)
[2017-04-25 08:11] VITALS: BP 166/101; RESP 18
[2017-04-25] MEDS: MYCOPHENOLATE (SR) 180 MG TAB PO SCH (08:39)
[2017-04-25] MEDS: predniSONE 5 MG TAB PO SCH (08:39)
[2017-04-25] MEDS: TACROLIMUS 1 MG CAP PO SCH (08:39)
[2017-04-25] MEDS: METOPROLOL 50 MG TAB PO SCH (08:39)
[2017-04-25] MEDS: CEFEPIME 1GM/50 ML (PMX) 50 ML IVPB SCH (08:40)
[2017-04-25] MEDS: CALCIUM CARBONATE 750 MG CHEW TAB PO SCH (08:48)
--- NOTE | 2017-04-25 09:59 | DS ---
DATE OF ADMISSION: 04/21/2017 DATE OF DISCHARGE: 04/25/2017 HOSPITAL COURSE: This is a 51-year-old male with a past medical history of simultaneous renal and p ancreatic transplant in 2000 with baseline creatinine 1.3 to 1.4 mg/dL. Patient is followed by ana handley in office. The patient presented to [facility] with several days of rigors, na usea and vomiting. Upon arrival, patient was noted to be in acute kidney injury with a creatinine o f 4.0 mg/dL. The patient had a white count of 21,000 and elevated lactic acid. The patient was makeda sofia on septic protocol, was placed on broad spectrum antibiotics, IV fluids and admitted to [facility]. The patient was also seen by infectious disease, Dr. Mcdaniels. In terms of the patient's sepsis, underlying source is unclear, possibly viral. The patient's chest x-ray, blood cultures were negati ve. The patient clinically responded to IV antibiotics and to IV fluids as the patient's acute kidn ey injury resolved and his white count normalized. Patient currently is stable at baseline without any complications. The patient also during the hospital course, was evaluated by pyroglazer, Dr. Hill, who recommended a stress test. The patient would like to perform that as an outpatient sett ing and will follow up with Dr. Hill in his clinic. The patient's other medical problems during t hospital course included nausea, vomiting, anxiety disorder which is improved. Currently, at [facility] time, the patient is stable, in no acute distress. He will be discharged home with home health lito. The patient will also follow up with me in my office in 1 to 2 weeks. FINAL DIAGNOSES: 1. Sepsis, underlying source unclear, possible viral. The patient has completed 5 days of IV antib iotics and is currently asymptomatic. We will be discharged home off antibiotics, will be monitored closely with home health services. 2. Acute respiratory failure secondary to sepsis, resolved. 3. Nonoliguric acute kidney injury on top of chronic allograft failure. Etiology of acute kidney i njury is secondary to hemodynamics. Renal function is back to baseline. 4. Chronic allograft failure. 5. Status post simultaneous pancreatic kidney transplant. 6. History of nausea and vomiting, resolved. 7. Anxiety disorder. 8. Hypertension. 9. Hypomagnesemia, resolved. FINAL MEDICATIONS: Please see reconciliation list. Please note I spent over 40 minutes in plan of care for patient's discharge. Dictated By: JENNIFER ELIAS/MAYTE Conf#: [id number] DID#: [id number]
[2017-04-25 13:17] LABS: CYTOMEGALOVIRUS ANTIBODY (IGM) <30.00 AU/mL
== END 2017-04-25 11:10 | disposition home or self-care (01) | DRG 871 ==
LOC: E/R 08:33 → TEL 10:23 → MS1 04-24 23:44
PROVIDERS: ADMIT Internal Medicine; ATTEND Internal Medicine
DX: A41.89 Other specified sepsis (principal); J96.01 Acute respiratory failure with hypoxia; N17.9 Acute kidney failure, unspecified; Z94.83 Pancreas transplant status; E87.2 Acidosis; Z94.0 Kidney transplant status; R65.20 Severe sepsis without septic shock; F41.9 Anxiety disorder, unspecified; Z79.899 Other long term (current) drug therapy; N20.0 Calculus of kidney; K59.00 Constipation, unspecified; K57.90 Diverticulosis of intestine, part unspecified, without perforation or abscess without bleeding; I70.209 Unspecified atherosclerosis of native arteries of extremities, unspecified extremity; Z86.19 Personal history of other infectious and parasitic diseases; B97.89 Other viral agents as the cause of diseases classified elsewhere; I12.9 Hypertensive chronic kidney disease with stage 1 through stage 4 chronic kidney disease, or unspecified chronic kidney disease; N18.9 Chronic kidney disease, unspecified; R11.2 Nausea with vomiting, unspecified; E83.42 Hypomagnesemia
CPT/HCPCS: 36415; 71010; 74176; 80048; 80053; 80061; 80197; 81001; 81003; 82043; 82550; 82553; 83605; 83690; 83735; 84100; 84145; 84155; 84300; 84439; 84443; 84484; 85025; 85378; 85610; 85730; 86644; 87040; 87086; 87400; 90686; 93005; 93306; 96374; 96375; C9113; J0692; J1630; J2060; J2405; J2765; J3370; J3475; J3480; J7030; J7507; J7512

== ENCOUNTER 2017-07-26 18:11 | Inpatient (IN) | END 2017-07-29 12:00 | disposition home or self-care (01) | DRG 872 ==

== ENCOUNTER 2017-08-23 14:06 | Emergency (ER) | END 2017-08-23 20:52 | disposition home or self-care (01) ==

== ENCOUNTER 2017-10-12 15:09 | Inpatient (IN) | END 2017-10-14 14:02 | disposition home or self-care (01) | DRG 380 ==

== ENCOUNTER 2018-01-03 13:45 | Inpatient (IN) | END 2018-01-07 17:20 | disposition home or self-care (01) | DRG 380 ==

== ENCOUNTER 2018-09-03 21:16 | Inpatient (IN) | payer MEDICARE, OTHER ==
[~2018-09-03] VITALS: Ht 177.8 cm; Wt 68.0 kg
[~2018-09-03 21:16] MED LIST changes: +AMLO-147 PO; -LORA1TAB PO; -METO-429 PO; -MYCO360T PO; +MYCO360T3 PO; -ONDA4TAB35 PO; +PANT40TA3 PO; -PRED-253 PO; +PRED5TAB PO
[2018-09-03] MEDS ORDERED: morphine 4 MG/ML VIAL IV STA (21:32)
[2018-09-03] MEDS ORDERED: ONDANSETRON 4 MG INJ IV STA (21:32)
[2018-09-03] MEDS ORDERED: SOD CHLORIDE 0.9% 1,000 ML IV STA (21:32)
[2018-09-04] MEDS ORDERED: LORAZEPAM 2 MG INJ ONE (01:43)
[2018-09-04] MEDS ORDERED: LORAZEPAM 2 MG INJ IV ONE (02:00)
--- NOTE | 2018-09-04 02:20 | ERD ---
ER Documentation Chief Complaint Chief Complaint nausea x 2 days, vomiting since 0800 despites MJ use to control n/v. HPI This is a 52-year-old male with nausea and vomiting for 2 days. He said 8-10 episodes of vomiting. Nonbloody. Nonbilious. No fevers or chills. History of intractable vomiting secondary to likely cyclic vomiting syndrome in the past. Multiple previous episodes and visits to the ER. ROS All systems reviewed and are negative except as per history of present illness. Medications Home Meds Active Scripts Pantoprazole* (Protonix*) 40 Mg Tablet.dr, 40 MG PO BID, #60 TAB Prov:DEON ROSE MD 07/29/17 Reported Medications Mycophenolate Sodium* (Mycophenolic Acid*) 360 Mg Tablet.dr, 360 MG PO BID, TAB 07/26/17 Tacrolimus* (Tacrolimus*) 1 Mg Capsule, 2 MG PO BID, CAP 07/26/17 Amlodipine Besylate* (Amlodipine Besylate*) 10 Mg Tablet, 10 MG PO DAILY, #30 TAB 07/26/17 Prednisone* (Prednisone*) 5 Mg Tab, 5 MG PO DAILY, TAB 07/26/17 Alprazolam* (Alprazolam*) 1 Mg Tablet, 1 MG PO TID PRN for ANXIETY, TAB 07/26/17 Allergies Allergies: Coded Allergies: No Known Allergies (Verified Allergy, Unknown, 01/03/18) PMhx/Soc History of Surgery: Yes (pancreas, kidney reciepient transplant Sx.) Anesthesia Reaction: No Hx Neurological Disorder: No Hx Respiratory Disorders: No Hx Cardiac Disorders: Yes (AFIB) Hx Psychiatric Problems: No Hx Miscellaneous Medical Probl: No Hx Alcohol Use: Yes (2 glasses of wine 2 days ago) Hx Substance Use: Yes (Medical marijuana) Hx Tobacco Use: No Smoking Status: Never smoker Physical Exam Vitals Vital Signs Date Temp Pulse Resp B/P (MAP) Pulse Ox O2 O2 Flow FiO2 Time Delivery Rate 09/03/18 98.0 114 20 132/85 99 21:17 (101) Physical Exam Const: No acute distress Head: Atraumatic Eyes: Normal Conjunctiva ENT: Normal External Ears, Nose and Mouth. Neck: Full range of motion. No meningismus. Resp: Clear to auscultation bilaterally Cardio: Regular rate and rhythm, no murmurs Abd: Soft, non tender, non distended. Normal bowel sounds Skin: No petechiae or rashes Back: No midline or flank tenderness Ext: No cyanosis, or edema Neur: Awake and alert Psych: Normal Mood and Affect Result Diagram: 09/03/18222609/03/182226 Results 24 hrs Laboratory Tests Test 09/03/18 22:27 White Blood Count 17.2 10^3/ul Red Blood Count 4.51 10^6/ul Hemoglobin 14.1 g/dl Hematocrit 42.5 % Mean Corpuscular Volume 94.2 fl Mean Corpuscular Hemoglobin 31.3 pg Mean Corpuscular Hemoglobin Concent 33.2 g/dl Red Cell Distribution Width 14.0 % Platelet Count 192 10^3/UL Mean Platelet Volume 10.8 fl Immature Granulocytes % 0.800 % Neutrophils % 83.0 % Lymphocytes % 6.2 % Monocytes % 9.5 % Eosinophils % 0.1 % Basophils % 0.4 % Nucleated Red Blood Cells % 0.0 /100WBC Immature Granulocytes # 0.130 10^3/ul Neutrophils # 14.3 10^3/ul Lymphocytes # 1.1 10^3/ul Monocytes # 1.6 10^3/ul Eosinophils # 0.0 10^3/ul Basophils # 0.1 10^3/ul Nucleated Red Blood Cells # 0.0 10^3/ul Sodium Level 144 mmol/L Potassium Level 3.7 mmol/L Chloride Level 106 mmol/L Carbon Dioxide Level 24 mmol/L Anion Gap 14 Blood Urea Nitrogen 24 mg/dl Creatinine 2.90 mg/dl Est Glomerular Filtrat Rate mL/min 23 mL/min Glucose Level 132 mg/dl Calcium Level 10.0 mg/dl Total Bilirubin 0.6 mg/dl Direct Bilirubin 0.00 mg/dl Indirect Bilirubin 0.6 mg/dl Aspartate Amino Transf (AST/SGOT) 17 IU/L Alanine Aminotransferase (ALT/SGPT) 21 IU/L Alkaline Phosphatase 57 IU/L Total Protein 6.9 g/dl Albumin 4.3 g/dl Globulin 2.60 g/dl Albumin/Globulin Ratio 1.65 Lipase 21 U/L Current Medications Medications Dose Sig/Shalonda Start Time Status Last (Trade) Ordered Route PRN Stop Time Admin Dose Reason Admin Sodium 1,000 ml @ Q1H STAT 09/03/18 DC 4/1/19 Chloride 1,000 mls/hr IV 21:32 09/03/18 22:22 22:31 Morphine 4 mg ONCE STAT 09/03/18 DC 09/03/18 Sulfate IV 21:32 09/03/18 22:22 (morphine) 21:34 Ondansetron 4 mg ONCE STAT 09/03/18 DC 09/03/18 HCl (Zofran IV 21:32 09/03/18 22:21 Inj) 21:34 Lorazepam 1 mg ONCE ONCE 09/04/18 DC 09/04/18 (Ativan) IV 02:00 09/04/18 01:55 02:01 Lorazepam 2 mg STK-MED 09/04/18 DC (Ativan) ONCE .ROUTE 01:43 09/04/18 01:44 Procedures/MDM Emergency department course: Patient seen about the charges. Placed in bed from evaluation. Intravenous access. Had blood work done. A stat CT scan. Given Zofran and Reglan for vomiting control. Patient felt somewhat better but continued to have multiple episodes of vomiting here in the emergency department. Diagnostic data: EKG: Rate/Rhythm: [Normal Sinus Rhythm] QRS, ST, T-waves: [No changes consistent w/ acute ischemia] Impression: [No evidence of ischemia or arrhythmia] Chest X-ray 1V Interpreted by me: Soft Tissue: No acute abnormalities Bones: No acute abnormalities Mediastinum/Cardiac Silhouette/Lungs: [No acute abnormalities] Medical decision making: Accepting Care Team: Current data and ongoing care discussed at time of admission. Primary: Dr. Barnes Consulting: Deferred to inpatient team Outstanding Data: none Departure Diagnosis: Primary Impression: Nausea and vomiting Vomiting type: unspecified Vomiting Intractability: intractable Qualified Codes: R11.2 - Nausea with vomiting, unspecified Condition: EFREN Arias Sep 04, 2018 02:20
[2018-09-04] MEDS ORDERED: ONDANSETRON 4 MG INJ IV STA (02:26)
[2018-09-04] MEDS ORDERED: SOD CHLORIDE 0.9% 1,000 ML IV ONE (02:30)
[2018-09-04 03:00] VITALS: BP 138/67; PULSE 105; RESP 20
[2018-09-04] MEDS: SOD CHLORIDE 0.9% 1,000 ML IV SCH ×2 (04:03→14:43)
[2018-09-04] MEDS: ONDANSETRON 4 MG INJ IV PRN ×3 (04:04→20:21)
[2018-09-04] MEDS: morphine 2 MG INJ IV PRN (05:47)
[2018-09-04] MEDS ORDERED: PANTOPRAZOLE (EC) 40 MG TAB PO SCH (06:00)
[2018-09-04 08:08] VITALS: BP 137/85; PULSE 100; RESP 18
[2018-09-04] MEDS: predniSONE 5 MG TAB PO SCH (08:33)
[2018-09-04] MEDS: TACROLIMUS 1 MG CAP PO SCH ×2 (08:33→20:22)
[2018-09-04] MEDS: MYCOPHENOLATE (SR) 180 MG TAB PO SCH ×2 (08:33→20:22)
[2018-09-04] MEDS: AMLODIPINE 10 MG TAB PO SCH (08:33)
[2018-09-04] MEDS: ALPRAZOLAM 1 MG TAB PO PRN (08:39)
[2018-09-04 08:45] VITALS: Ht 177.8 cm; Wt 68.0 kg
--- NOTE | 2018-09-04 08:57 | HP ---
DATE OF ADMISSION: 09/04/2018 CHIEF COMPLAINT: Nausea, vomiting, and abdominal pain. HISTORY OF PRESENT ILLNESS: This is a 52-year-old male well known to me with a past medical history of simultaneous renal and pancreatic transplant in 1999 with a baseline creatinine of 1.3 to 1.4 mg/d L, a history of CMV virus, a history of cyclic vomiting syndrome, a recent history of ulcerative esop hagitis, who presents to [facility] with complaint of 2 days of severe nausea and v omiting. The patient has had multiple admissions to [facility] with similar compla ints most recently in 01/2018. The patient previously was treated with antiemetics, IV hydration and discharged home. The patient states that since last admission to an outside hospital, the patient n oted that smoking marijuana has induced his vomiting and nausea. The patient states that he stopped smoking marijuana and has had subsequent improvement of his nausea and vomiting. The patient now adm its to having engaged in cannabis use with resultant episodes of nausea and vomiting 2 days ago. The patient describes having 8 to 10 bouts. The patient as a result of worsening symptoms, came to the [facility]. Upon arrival, the patient had a CT scan of the abdomen and pelvis, whi ch showed atherosclerosis, atrophic kidneys, nonobstructing renal calculi, left pelvic renal transpla nt. Nonspecific renal transplant hydronephrosis seen again, enlargement of the prostate seen again, large right hydrocele seen again, colonic diverticulosis, no specific evidence of acute diverticuliti s. No significant change from prior study. The patient in the emergency room was given IV hydration , antiemetic therapy and admitted to telemetry for evaluation. Please also note on admission, the arline orozco has a white count of 17.2, a BUN of 24, creatinine 2.90. Upon my evaluation of the patient at this time, he currently continues to have nausea, vomiting, leth argy and weakness. PAST MEDICAL HISTORY: As stated above, history of end-stage renal disease, history of diabetes, hist ory of CMV viremia, history of pneumonia, history of hypertension, history of ulcerative colitis. PAST SURGICAL HISTORY: Status post pancreatic kidney transplant in 1999. ALLERGIES: NO KNOWN DRUG ALLERGIES. SOCIAL HISTORY: He does not actively drink. MEDICATIONS: Medications have been reviewed and reconciled. FAMILY HISTORY: No family history of kidney disease. REVIEW OF SYSTEMS: A 14-point review of systems was conducted. Pertinent positives stated in HPI, o therwise negative. PHYSICAL EXAMINATION: VITAL SIGNS: Blood pressure is 135/72, respirations 18, pulse 105, temperature 98.7. HEENT: Head is normocephalic. NECK: Supple. HEART: Regular rate. LUNGS: Show diminished breath sounds at the base. ABDOMEN: Soft, positive tenderness to palpation in the mid epigastric region. EXTREMITIES: Negative for clubbing, cyanosis, no edema. DERMATOLOGIC: No rashes. MUSCULOSKELETAL: No joint effusion. NEUROLOGIC: No focal deficits. LABORATORY DATA: From 09/04/[address] scan of abdomen and pelvis was reviewed. ASSESSMENT AND PLAN: 1. Intractable nausea and vomiting. Etiology may be multifactorial secondary to recent cannabis use , ulcerative esophagitis. The patient's CT scan of abdomen and pelvis was reviewed, no evidence of a cute findings. Plan is to continue aggressive IV hydration. We will start the patient on Protonix I V 40 mg b.i.d. We will continue Compazine. We will give Reglan as needed. We will continue Zofran. We will place a GI consult with Dr. Quinteros if no significant improvement in function. 2. Nonoliguric acute kidney injury on top of chronic allograft failure with previous baseline creati nine of 1.3 to 1.4 mg/dL. Etiology of acute kidney injury is likely secondary to hemodynamics from v olume depletion. Low suspicion for acute rejection of Prograf toxicity. Plan at this point, however , is to check UA with microanalysis, check urine electrolytes. Continue IV fluids and monitor closel y. 3. End-stage renal disease. The patient is status post simultaneous kidney-pancreas transplant. Th e patient is currently in acute kidney injury as stated above. Continue current immunosuppressive re gimen. Continue to monitor closely. 4. Systemic inflammatory response syndrome, leukocytosis. Etiology is likely secondary to stress an d demargination. The patient's white count is trending down. No obvious signs of infection. We bertha l check procalcitonin level, check a lactic acid level. Continue IV hydration. Defer antibiotic the rapy at this time. We will place an ID consult for evaluation. 5. Tachycardia, likely secondary to pain, nausea, and vomiting. We will continue IV hydration. Con tinue IV fluids, continue to treat underlying pain and nausea. We will monitor closely. 6. Anxiety disorder. Continue Ativan. 7. Hypertension. We will monitor blood pressure closely. Resume blood pressure medications as need ed. 9. Gastrointestinal and deep vein thrombosis prophylaxis. Continue proton pump inhibitor and sequen tial leg squeezers. Please note I spent an additional 30 minutes of cytw-ga-fuse time with the patient, discussing advanc e directives and code status. The patient is FULL CODE. Dictated By: JENNIFER MENDEZ DO NR/NTS Conf#: [id number] DID#: [id number] CC: RAJESH ROBBINS MD;*EndCC*
--- NOTE | 2018-09-04 11:39 | CONS ---
DATE OF ADMISSION: 09/04/2018 DATE OF CONSULTATION: 09/04/2018 TYPE OF CONSULTATION: Infectious Disease. REASON FOR CONSULTATION: Antibiotic management. HISTORY OF PRESENT ILLNESS: Vivek Junior is a 52-year-old male who was admitted with nausea and vomiti ng for 2 days' duration. He has had 8 to 10 episodes of vomiting prior to admission, nonbloody, nonb ilious with intractable vomiting secondary to a likely cyclic vomiting syndrome in the past. The pat josue has been seen multiple times in the emergency room. PAST MEDICAL HISTORY: Include: 1. Hypertension. 2. He has a pancreas and kidney recipient transplant from transplant surgery. He also has atrial fi brillation and uses medical marijuana. FAMILY HISTORY: Noncontributory. SOCIAL HISTORY: He drank 2 glasses of wine 2 days ago and uses medical marijuana. He does not smoke or otherwise abuse drugs. ALLERGIES: NONE TO PENICILLIN, SULFA OR FOODS. MEDICATIONS: Per chart. REVIEW OF SYSTEMS: As per HPI. PHYSICAL EXAMINATION: GENERAL: He is a well-developed, well-nourished male in no acute distress. VITAL SIGNS: Stable. He is afebrile. SKIN: Without generalized rash. HEENT: Within normal limits. NECK: Supple. LYMPH NODES: None palpable. CHEST: Decreased breath sounds at the bases. HEART: Without murmur or gallop. ABDOMEN: Soft, nontender, without organomegaly or splenomegaly or masses. EXTREMITIES: Without cyanosis, clubbing, or edema. RECTAL AND GENITAL: Deferred. NEUROLOGIC: No focal neurological abnormalities. ANCILLARY LABORATORY DATA: White count of 17.2 on admission with 83% neutrophils, H and H 14.1 and 4 2.5, platelet count 192,000. BUN and creatinine 24/2.90, glucose of 132. The patient was started on Zofran and Reglan and chest x-ray showed no acute abnormalities. A CT scan of the abdomen and pelvi s shows atherosclerosis, atrial atrophic [place] kidneys, multiple bilateral nonobstructing [place] boby al calculi, left pelvic renal transplant again seen mild nonspecific renal transplant hydronephrosis, again seen mild enlargement of prostate, large right hydrocele, colonic diverticulosis, no evidence of acute diverticulitis. White count today is 15.6. The patient is on Prograf or tacrolimus and pre dnisone and currently off antibiotic therapy. IMPRESSION AND PLAN: At this point, we will continue to observe him. He is afebrile. I will dictat e my findings to Dr. Rose and to Dr. Mendez. The patient has end-stage renal disease. He h as systemic inflammatory response syndrome with leukocytosis. No obvious infection. Procalcitonin l evels will be checked for antibiotic therapy at this time. I will dictate my findings to as noted Dr Jacqui Mendez. Dictated By: RADHA NOVAK MD, JD/MAYTE Conf#: [id number] DID#: [id number] CC: DEON ROSE MD; JENNIFER MENDEZ DO; RAJESH ROBBINS MD;*EndCC*
[2018-09-04] MEDS ORDERED: METO-448 PO (11:42)
[2018-09-04 14:17] VITALS: BP 128/74; PULSE 98; RESP 18
[2018-09-04] MEDS: PANTOPRAZOLE 40 MG INJ IV SCH (17:26)
[2018-09-04] MEDS: PROCHLORPERAZINE 10 MG INJ IV PRN (20:21)
[2018-09-04 20:35] VITALS: BP 125/83; PULSE 121; RESP 19
[2018-09-05] VITALS (20 sets, daily range): BP systolic 100–150; BP diastolic 62–91; PULSE 90–118; RESP 15–33
[2018-09-05] MEDS: SOD CHLORIDE 0.9% 1,000 ML IV SCH ×3 (00:29→21:17)
[2018-09-05] MEDS: ALPRAZOLAM 1 MG TAB PO PRN (01:29)
[2018-09-05] MEDS: ONDANSETRON 4 MG INJ IV PRN ×2 (01:38→09:39)
[2018-09-05] MEDS: PROCHLORPERAZINE 10 MG INJ IV PRN (04:15)
[2018-09-05] MEDS: morphine 2 MG INJ IV PRN ×2 (04:25→12:33)
[2018-09-05] MEDS: PANTOPRAZOLE 40 MG INJ IV SCH ×2 (04:27→18:53)
[2018-09-05] MEDS: MYCOPHENOLATE (SR) 180 MG TAB PO SCH ×2 (09:38→21:16)
[2018-09-05] MEDS: TACROLIMUS 1 MG CAP PO SCH ×2 (09:38→21:16)
[2018-09-05] MEDS: predniSONE 5 MG TAB PO SCH (09:38)
[2018-09-05] MEDS: AMLODIPINE 10 MG TAB PO SCH (09:39)
[2018-09-05] MEDS ORDERED: MAGNESIUM SULFATE 2 GM/50 ML 50 ML IVPB ONE (10:30)
[2018-09-05] MEDS: SUCRALFATE (100 MG/ML) 10ML CUP PO SCH ×3 (13:00→21:16)
--- NOTE | 2018-09-05 13:00 | CONS ---
Assessment/Plan Assessment/Plan Hospital Course (Demo Recall) Summary Assessment and Plan: Assessment: Intractable nausea/vomiting-cannabinoid hyperemesis syndrome versus gastroparesis versus other S/p EGD 07/28/17- Impression: Severe ulcerated esophagitis.Small hiatal hernia. Moderate gastritis. Gastric body and antrum biopsy: Negative for h.pylori or malignancy Esophagus biopsy: Acute esophagitis. For virus inclusions/parasites negative for malignancy. SIRS with leukocytosis YUE on top of chronic allograft failure -Chronic prednisone use HTN Anxiety History of Marijuana use- quit for 2-3 months and recently started smoking again -Discussed abstinence of marijuana Plan: Agree with continue PPI twice daily Add Carafate 1 g / 10 mL p.o. 4 times daily EGD today Endoscopy - risks/benefits/alternatives/indications of procedure and sedation/anesthesia discussed with patient who states understanding and gives informed consent to proceed. Patient seen in collaboration with Dr. Quinteros CC: ISH QUINTEROS MD ; Consultation Date/Type/Reason Admit Date/Time Sep 04, 2018 at 01:28 Date of Consultation: Sep 05, 2018 Type of Consult GI Reason for Consultation Intractable nausea/vomiting Date/Time of Note DATE: 09/05/18 TIME: 12:35 Hx of Present Illness This is a 52-year-old male with a history of pancreas and kidney transplant, HTN, GERD and anxiety who was admitted for intractable nausea and non-bloody vomiting. Patient states he feels nausea/vomiting secondary to pain avoid hyperemesis syndrome. Patient states he stopped smoking marijuana about 2 months ago with sublingual nauseous and started smoking again yesterday when his symptoms became progressively worse. He notes improvement with a hot shower. Patient has not been hospitalized for some similar symptoms previously underwent an upper endoscopy 07/28/18 showing severe ulcerative esophagitis, moderate gastritis and a small hiatal hernia biopsies were all negative. The patient complains of some epigastric/sternal pain improved with pain medication denies further episodes of nausea/vomiting, diarrhea, constipation, or overt signs of GI bleed e.g. Melena, hematochezia, or hematemesis. Lab workup shows leukocytosis likely secondary to systemic inflammatory syndrome normocytic anemia mild and renal insufficiency slowly improving. Per medical orders diet is currently n.p.o. however patient is noncompliant has been drinking Gatorade and water brought in by his girlfriend patient states he is tolerating liquids well and no complaints of nausea vomiting currently. Review of Systems: [A 12 system, review was conducted and is negative except as noted in the HPI or here.] Past Medical History Home Meds Active Scripts Pantoprazole* (Protonix*) 40 Mg Tablet.dr, 40 MG PO BID, #60 TAB Prov:DEON ROSE MD 07/29/17 Reported Medications Metoprolol Tartrate* (Lopressor*) 25 Mg Tab, 25 MG PO DAILY, #60 TAB 09/04/18 Mycophenolate Sodium* (Mycophenolic Acid*) 360 Mg Tablet.dr, 360 MG PO BID, TAB 07/26/17 Tacrolimus* (Tacrolimus*) 1 Mg Capsule, 2 MG PO BID, CAP 07/26/17 Amlodipine Besylate* (Amlodipine Besylate*) 10 Mg Tablet, 10 MG PO DAILY, #30 TAB 07/26/17 Prednisone* (Prednisone*) 5 Mg Tab, 5 MG PO DAILY, TAB 07/26/17 Alprazolam* (Alprazolam*) 1 Mg Tablet, 1 MG PO TID PRN for ANXIETY, TAB 07/26/17 Medications Current Medications Sodium Chloride 1,000 ml @ 100 mls/hr Q10H IV Last administered on 09/05/18 12:33; Admin Dose 100 MLS/HR; Start 09/04/18 at 04:00 Ondansetron HCl (Zofran Inj) 4 mg Q6H PRN IV NAUSEA AND/OR VOMITING Last administered on 09/05/18 09:39; Admin Dose 4 MG; Start 09/04/18 at 04:00 Morphine Sulfate (morphine) 2 mg Q4H PRN IV SEVERE PAIN LEVEL 7-10 Last administered on 09/05/18 12:33; Admin Dose 2 MG; Start 09/04/18 at 04:00 Alprazolam (Xanax) 1 mg TID PRN PO ANXIETY Last administered on 09/05/18 01:29; Admin Dose 1 MG; Start 09/04/18 at 04:00 Amlodipine Besylate (Norvasc) 10 mg DAILY PO Last administered on 09/05/18 0 9:39; Admin Dose 10 MG; Start 09/04/18 at 09:00 Mycophenolate Sodium (Myfortic) 360 mg BID PO Last administered on 09/05/18 09:38; Admin Dose 360 MG; Start 09/04/18 at 09:00 Pantoprazole (Protonix Tab) 40 mg BID@0600,1800 PO ; Start 09/04/18 at 06:00; Status Hold Prednisone (Prednisone) 5 mg DAILY PO Last administered on 09/05/18 09:38; Admin Dose 5 MG; Start 09/04/18 at 09:00 Tacrolimus (Prograf) 2 mg BID PO Last administered on 09/05/18 09:38; Admin Dose 2 MG; Start 09/04/18 at 09:00 Pantoprazole (Protonix Iv) 40 mg BID@06,18 IV Last administered on 09/05/18 04:27; Admin Dose 40 MG; Start 09/04/18 at 18:00 Prochlorperazine (Compazine Inj) 5 mg Q4H PRN IV NAUSEA AND/OR VOMITING Last administered on 09/05/18 04:15; Admin Dose 5 MG; Start 09/04/18 at 07:30 Allergies: Coded Allergies: No Known Allergies (Verified Allergy, Unknown, 01/03/18) Social History Smoking Status: Never smoker Exam/Review of Systems Exam Vitals Vital Signs Date Temp Pulse Resp B/P (MAP) Pulse Ox O2 O2 Flow FiO2 Time Delivery Rate 09/05/18 98.4 118 20 143/91 96 Room Air 08:00 (108) Intake and Output 09/04/18 09/04/18 09/05/18 1515:00 23:00 07:00 IntakeIntake Total 910 ml 1070 ml OutputOutput Total 650 ml 1700 ml BalanceBalance 260 ml -630 ml Exam PHYSICAL EXAMINATION: GENERAL: Well developed, well nourished, alert & oriented x 3, in no acute distress SKIN: No lesions HEAD: Normocephalic, atraumatic, no tenderness. EYES: Pupils equal reactive to light, no discharge. EARS/NOSE AND THROAT: Ears normal, nose normal, oropharynx normal NECK: Supple, no masses CHEST: Inspection within normal limits. CARDIOVASCULAR: Heart: Regular rate and rhythm RESPIRATORY: Lungs clear to auscultation GASTROINTESTINAL AND LIVER: Abdomen: Soft, non tenderness, non-distended, no hernias, no masses, no organomegaly, no ascites, no guarding, no rebound tenderness, normoactive bowel sounds. Rectal: Deferred. EXTREMITIES: No cyanosis, clubbing or edema. Results Result Diagram: 09/05/18 0448 09/05/18 0448 Results 24hrs Laboratory Tests Test 09/04/18 14:13 09/05/18 02:00 09/05/18 04:48 Sodium Level 144 144 Potassium Level 4.1 3.6 Chloride Level 109 107 Carbon Dioxide Level 24 24 Anion Gap 11 13 Blood Urea Nitrogen 25 H 21 H Creatinine 2.22 H 1.68 H Est Glomerular Filtrat Rate mL/min 31 L 43 L Glucose Level 108 98 Calcium Level 9.6 9.3 Urine Color COLORLESS Urine Clarity CLEAR Urine pH 7.0 Urine Specific [place] 1.005 Urine Ketones TRACE A Urine Nitrite NEGATIVE Urine Bilirubin NEGATIVE Urine Urobilinogen NEGATIVE Urine Leukocyte Esterase NEGATIVE Urine Microscopic RBC 0 Urine Microscopic WBC 0 Urine Hemoglobin 1+ H Urine Random Creatinine 17.06 L Urine Random Sodium 109 H Urine Glucose NEGATIVE Urine Total Protein 23.0 H White Blood Count 13.0 H Red Blood Count 4.46 L Hemoglobin 13.7 L Hematocrit 41.8 L Mean Corpuscular Volume 93.7 Mean Corpuscular Hemoglobin 30.7 Mean Corpuscular Hemoglobin Concent 32.8 Red Cell Distribution Width 14.3 Platelet Count 181 Mean Platelet Volume 10.9 H Immature Granulocytes % 0.700 H Neutrophils % 77.7 H Lymphocytes % 13.2 L Monocytes % 8.0 Eosinophils % 0.1 Basophils % 0.3 Nucleated Red Blood Cells % 0.0 Immature Granulocytes # 0.090 H Neutrophils # 10.1 H Lymphocytes # 1.7 Monocytes # 1.0 H Eosinophils # 0.0 Basophils # 0.0 Nucleated Red Blood Cells # 0.0 Phosphorus Level 2.8 Magnesium Level 1.3 L Medications Medication Current Medications Sodium Chloride 1,000 ml @ 100 mls/hr Q10H IV Last administered on 09/05/18 12:33; Admin Dose 100 MLS/HR; Start 09/04/18 at 04:00 Ondansetron HCl (Zofran Inj) 4 mg Q6H PRN IV NAUSEA AND/OR VOMITING Last administered on 09/05/18 09:39; Admin Dose 4 MG; Start 09/04/18 at 04:00 Morphine Sulfate (morphine) 2 mg Q4H PRN IV SEVERE PAIN LEVEL 7-10 Last administered on 09/05/18at 12:33; Admin Dose 2 MG; Start 09/04/18 at 04:00 Alprazolam (Xanax) 1 mg TID PRN PO ANXIETY Last administered on 09/05/18 01:29; Admin Dose 1 MG; Start 09/04/18 at 04:00 Amlodipine Besylate (Norvasc) 10 mg DAILY PO Last administered on 09/05/18 09:39; Admin Dose 10 MG; Start 09/04/18 at 09:00 Mycophenolate Sodium (Myfortic) 360 mg BID PO Last administered on 09/05/18 09:38; Admin Dose 360 MG; Start 09/04/18 at 09:00 Pantoprazole (Protonix Tab) 40 mg BID@0600,1800 PO ; Start 09/04/18 at 06:00; Status Hold Prednisone (Prednisone) 5 mg DAILY PO Last administered on 09/05/18 09:38; Admin Dose 5 MG; Start 09/04/18 at 09:00 Tacrolimus (Prograf) 2 mg BID PO Last administered on 09/05/18 09:38; Admin Dose 2 MG; Start 09/04/18 at 09:00 Pantoprazole (Protonix Iv) 40 mg BID@06,18 IV Last administered on 09/05/18 04:27; Admin Dose 40 MG; Start 09/04/18 at 18:00 Prochlorperazine (Compazine Inj) 5 mg Q4H PRN IV NAUSEA AND/OR VOMITING Last administered on 09/05/18 04:15; Admin Dose 5 MG; Start 09/04/18 at 07:30 MARIO PAULINO Sep 05, 2018 12:45
--- NOTE | 2018-09-05 13:57 | PN ---
DATE: 09/05/2018 SUBJECTIVE: The patient continues to have intractable nausea, although mildly improved. The patient denies any abdominal pain. No hemoptysis, hematemesis or hematochezia. OBJECTIVE: VITAL SIGNS: Blood pressure is 143/91, respirations 20, pulse 119, temperature 98.4. HEENT: Head is normocephalic. NECK: Supple. HEART: Tachycardic. LUNGS: Show diminished breath sounds at the base. ABDOMEN: Soft, nontender to palpation. No rebound or guarding. EXTREMITIES: Negative for clubbing, cyanosis. No edema. DERMATOLOGIC: No rashes. MUSCULOSKELETAL: No joint effusions. NEUROLOGIC: No focal deficits. MEDICATIONS: Have been reviewed. LABORATORY DATA: Show sodium 144, potassium 3.6, BUN 21, creatinine 1.68. White count 13.0, hemoglo bin 13.7, platelet count is 181. The patient's urinalysis shows approximately 800 mg per gram of cre atinine. No active sediment. ASSESSMENT AND PLAN: 1. Intractable nausea and vomiting. Etiology may have been related to recent marijuana use, possibl e recurrence of ulcerative esophagitis. The patient's CT scan was reviewed. No evidence of acute fi ndings. The patient is slowly improving, but continues to have ongoing nausea. Plan is to continue medical management. Continue Protonix 40 mg IV b.i.d. Continue Zofran and Compazine. We will consi chapo giving Reglan. A GI consult has been placed with Dr. Quinteros for evaluation. Monitor closely. 2. Nonoliguric acute kidney injury on top of chronic allograft failure with previous baseline creati nine of 1.3 to 1.4 mg/dL. Etiology of acute kidney injury is secondary to hemodynamics and volume de pletion. The patient's renal function has slowly been improving with IV fluids. We will continue to monitor. Urinalysis was reviewed. 3. End-stage renal disease. The patient is status post simultaneous kidney-pancreas transplant, cur rently in acute kidney injury as stated above. Continue current immunosuppressive regimen. Continue to monitor. 4. Systemic inflammatory response syndrome and leukocytosis, likely secondary to stress and demargin ation. No evidence of infection. I appreciate infectious disease evaluation. Continue IV hydration . We will continue to defer antibiotic therapy at this time. 5. Tachycardia, likely due to pain. Continue to monitor the patient's sinus rhythm. Consider cardi ology evaluation if no significant improvement. 6. Anxiety disorder. Continue Ativan. 7. Hypertension. Continue to monitor. Continue current blood pressure regimen. 8. Gastrointestinal and deep vein thrombosis prophylaxis. Dictated By: JENNIFER ELIAS/MAYTE Conf#: [id number] DID#: [id number] CC: RAJESH ROBBINS MD;*EndCC*
--- NOTE | 2018-09-05 14:32 | CONS ---
Assessment/Plan Assessment/Plan Hospital Course (Demo Recall) Patient is alert looks comfortable complaining of reflux no fevers overnight WBC 13 platelets 181 neutrophils 77.7 BUN 21 creatinine 1.68 Urinalysis was negative for nitrite leukocyte Estrace CT abdomen and pelvis revealed colonic diverticulosis no acute diverticulitis left pelvic renal transplant multiple bilateral nonobstructive [place] renal calculi mild nonspecific renal transplant hydronephrosis. Mild enlargement of the prostate. Large right hydrocephaly. Please see full report in the chart Physical examination: This is a wasted well-developed ill-appearing middle-aged man who is alert in no distress. Head atraumatic normocephalic. Neck is supple. Chest rise symmetrical breath sounds clear. Heart: S1-S2. Abdomen soft bowel sounds present. Extremities without cyanosis. Assessment: 1. Systemic inflammatory response syndrome 2. Intractable nausea status post vomiting 3. Acute on chronic kidney disease 4. History of kidney/pancreatic transplant, on immunosuppressive therapy 5. Hypertension 6. Anxiety Plan: Patient is stable, no evidence of active infection, he is off antibiotics, gastroenterology on case, plan for EGD Consultation Date/Type/Reason Admit Date/Time Sep 04, 2018 at 01:28 Initial Consult Date 09/05/18 Type of Consult id Date/Time of Note DATE: 09/05/18 TIME: 14:32 Exam/Review of Systems Exam Vitals Vital Signs Date Temp Pulse Resp B/P (MAP) Pulse Ox O2 O2 Flow FiO2 Time Delivery Rate 09/05/18 98.4 118 20 143/91 96 Room Air 08:00 (108) Intake and Output 09/04/18 09/04/18 09/05/18 1515:00 23:00 07:00 IntakeIntake Total 910 ml 1070 ml OutputOutput Total 650 ml 1700 ml BalanceBalance 260 ml -630 ml Results Result Diagram: 09/05/18 0448 09/05/18 0448 Results 24hrs Laboratory Tests Test 09/05/18 02:00 09/05/18 04:48 Urine Color COLORLESS Urine Clarity CLEAR Urine pH 7.0 Urine Specific [place] 1.005 Urine Ketones TRACE A Urine Nitrite NEGATIVE Urine Bilirubin NEGATIVE Urine Urobilinogen NEGATIVE Urine Leukocyte Esterase NEGATIVE Urine Microscopic RBC 0 Urine Microscopic WBC 0 Urine Hemoglobin 1+ H Urine Random Creatinine 17.06 L Urine Random Sodium 109 H Urine Glucose NEGATIVE Urine Total Protein 23.0 H White Blood Count 13.0 H Red Blood Count 4.46 L Hemoglobin 13.7 L Hematocrit 41.8 L Mean Corpuscular Volume 93.7 Mean Corpuscular Hemoglobin 30.7 Mean Corpuscular Hemoglobin Concent 32.8 Red Cell Distribution Width 14.3 Platelet Count 181 Mean Platelet Volume 10.9 H Immature Granulocytes % 0.700 H Neutrophils % 77.7 H Lymphocytes % 13.2 L Monocytes % 8.0 Eosinophils % 0.1 Basophils % 0.3 Nucleated Red Blood Cells % 0.0 Immature Granulocytes # 0.090 H Neutrophils # 10.1 H Lymphocytes # 1.7 Monocytes # 1.0 H Eosinophils # 0.0 Basophils # 0.0 Nucleated Red Blood Cells # 0.0 Sodium Level 144 Potassium Level 3.6 Chloride Level 107 Carbon Dioxide Level 24 Anion Gap 13 Blood Urea Nitrogen 21 H Creatinine 1.68 H Est Glomerular Filtrat Rate mL/min 43 L Glucose Level 98 Calcium Level 9.3 Phosphorus Level 2.8 Magnesium Level 1.3 L Medications Medication Current Medications Sodium Chloride 1,000 ml @ 100 mls/hr Q10H IV Last administered on 09/05/18 12:33; Admin Dose 100 MLS/HR; Start 09/04/18 at 04:00 Ondansetron HCl (Zofran Inj) 4 mg Q6H PRN IV NAUSEA AND/OR VOMITING Last administered on 09/05/18 09:39; Admin Dose 4 MG; Start 09/04/18 at 04:00 Morphine Sulfate (morphine) 2 mg Q4H PRN IV SEVERE PAIN LEVEL 7-10 Last administered on 09/05/18 12:33; Admin Dose 2 MG; Start 09/04/18 at 04:00 Alprazolam (Xanax) 1 mg TID PRN PO ANXIETY Last administered on 09/05/18 01:29; Admin Dose 1 MG; Start 09/04/18 at 04:00 Amlodipine Besylate (Norvasc) 10 mg DAILY PO Last administered on 09/05/18 09:39; Admin Dose 10 MG; Start 09/04/18 at 09:00 Mycophenolate Sodium (Myfortic) 360 mg BID PO Last administered on 09/05/18 09:38; Admin Dose 360 MG; Start 09/04/18 at 09:00 Pantoprazole (Protonix Tab) 40 mg BID@0600,1800 PO ; Start 09/04/18 at 06:00; Status Hold Prednisone (Prednisone) 5 mg DAILY PO Last administered on 09/05/18 09:38; Admin Dose 5 MG; Start 09/04/18 at 09:00 Tacrolimus (Prograf) 2 mg BID PO Last administered on 09/05/18 09:38; Admin Dose 2 MG; Start 09/04/18 at 09:00 Pantoprazole (Protonix Iv) 40 mg BID@06,18 IV Last administered on 09/05/18 04:27; Admin Dose 40 MG; Start 09/04/18 at 18:00 Prochlorperazine (Compazine Inj) 5 mg Q4H PRN IV NAUSEA AND/OR VOMITING Last administered on 09/05/18 04:15; Admin Dose 5 MG; Start 09/04/18 at 07:30 Sucralfate (Carafate Susp) 1 gm QID PO ; Start 09/05/18 at 13:00 FREEMAN RENNER NP Sep 05, 2018 14:32
--- NOTE | 2018-09-05 16:44 | PREAC ---
Date/Time of Note Date/Time of Note DATE: 09/05/18 TIME: 16:44 Anesthesia Eval and Record Evaluation Time Pre-Procedure Interview DATE: 09/05/18 TIME: 16:44 Age 52 Sex male NPO: 8 hrs Preoperative diagnosis nausea, vomiting Planned procedure EGD Past Medical History Past Medical History: Includes Cardio: HTN Endo: Diabetes Renal: YUE, CKD, ESRD on dialysis (s/p renal pancreatic transplant ) GI: Other (ulcerative esophagitis) Psych: Anxiety Recreational drugs: Marijuana Surgery & Anesthesia Issues No known issue Meds Anticoagulation: No Beta Shannen within 24 hr: No Reason Beta Shannen not given: Bradycarida, Hypotension Active Scripts Pantoprazole* (Protonix*) 40 Mg Tablet., 40 MG PO BID, #60 TAB Prov:DEON ROSE MD 07/29/17 Reported Medications Metoprolol Tartrate* (Lopressor*) 25 Mg Tab, 25 MG PO DAILY, #60 TAB 09/04/18 Mycophenolate Sodium* (Mycophenolic Acid*) 360 Mg Tablet., 360 MG PO BID, TAB 07/26/17 Tacrolimus* (Tacrolimus*) 1 Mg Capsule, 2 MG PO BID, CAP 07/26/17 Amlodipine Besylate* (Amlodipine Besylate*) 10 Mg Tablet, 10 MG PO DAILY, #30 TAB 07/26/17 Prednisone* (Prednisone*) 5 Mg Tab, 5 MG PO DAILY, TAB 07/26/17 Alprazolam* (Alprazolam*) 1 Mg Tablet, 1 MG PO TID PRN for ANXIETY, TAB 07/26/17 Current Medications Sodium Chloride 1,000 ml @ 100 mls/hr Q10H IV Last administered on 09/05/18at 12:33; Admin Dose 100 MLS/HR; Start 09/04/18 at 04:00 Ondansetron HCl (Zofran Inj) 4 mg Q6H PRN IV NAUSEA AND/OR VOMITING Last administered on 09/05/18at 09:39; Admin Dose 4 MG; Start 09/04/18 at 04:00 Morphine Sulfate (morphine) 2 mg Q4H PRN IV SEVERE PAIN LEVEL 7-10 Last administered on 09/05/18at 12:33; Admin Dose 2 MG; Start 09/04/18 at 04:00 Alprazolam (Xanax) 1 mg TID PRN PO ANXIETY Last administered on 09/05/18 01:29; Admin Dose 1 MG; Start 09/04/18 at 04:00 Amlodipine Besylate (Norvasc) 10 mg DAILY PO Last administered on 09/05/18 0 9:39; Admin Dose 10 MG; Start 09/04/18 at 09:00 Mycophenolate Sodium (Myfortic) 360 mg BID PO Last administered on 09/05/18 09:38; Admin Dose 360 MG; Start 09/04/18 at 09:00 Pantoprazole (Protonix Tab) 40 mg BID@0600,1800 PO ; Start 09/04/18 at 06:00; Status Hold Prednisone (Prednisone) 5 mg DAILY PO Last administered on 09/05/18 09:38; Admin Dose 5 MG; Start 09/04/18 at 09:00 Tacrolimus (Prograf) 2 mg BID PO Last administered on 09/05/18 09:38; Admin Dose 2 MG; Start 09/04/18 at 09:00 Pantoprazole (Protonix Iv) 40 mg BID@06,18 IV Last administered on 09/05/18 04:27; Admin Dose 40 MG; Start 09/04/18 at 18:00 Prochlorperazine (Compazine Inj) 5 mg Q4H PRN IV NAUSEA AND/OR VOMITING Last administered on 09/05/18 04:15; Admin Dose 5 MG; Start 09/04/18 at 07:30 Sucralfate (Carafate Susp) 1 gm QID PO ; Start 09/05/18 at 13:00 Meds reviewed: Yes Allergies Coded Allergies: No Known Allergies (Verified Allergy, Unknown, 01/03/18) Allergies Reviewed: Yes Labs/Studies Labs Reviewed: Reviewed by anesthesiologist Result Diagram: 09/05/18 0448 09/05/18 0448 Laboratory Tests 09/05/18 04:48 test: N/A Pre-procedure Exam Last vitals Vital Signs Date Temp Pulse Resp B/P (MAP) Pulse Ox O2 O2 Flow FiO2 Time Delivery Rate 09/05/18 98.4 110 20 140/77 100 Room Air 16:16 (98) Airway: Adequate mouth opening, Adequate thyromental dist Mallampati: Mallampati II Teeth: Normal Lung: Normal Heart: Normal ASA Physical Status ASA physical status: 3 Emergency: None Planned Anesthetic General/MAC: Mask Planned Pain Management Parenteral pain med Pre-operative Attestations Prior to commencing anesthesia and surgery, the patient was re-evaluated, there was verification of: *The patient's identity *The results of appropriate recent lab work and preoperative vital signs *The above evaluation not changing prior to induction *Anesthetic plan, risk benefits, alternative and complications discussed with patient/family; questions answered; patient/family understands, accepts and wishes to proceed. ANALIA GIL MD Sep 05, 2018 16:44
[2018-09-05] MEDS ORDERED: ONDANSETRON 4 MG INJ IV PRN (17:00)
[2018-09-05] MEDS ORDERED: PROPOFOL 20 ML ONE (17:21)
[2018-09-05] MEDS ORDERED: LIDOCAINE 2% (SDV) 5 ML INJ ONE (17:21)
--- NOTE | 2018-09-05 17:50 | HPN ---
Date/Time of Note Date/Time of Note DATE: 09/05/18 TIME: 17:50 Interval H&P Admission Note Pt. seen H&P reviewed: No system changes ISH GILLESPIE MD Sep 05, 2018 17:50
--- NOTE | 2018-09-05 17:57 | PAC ---
Date/Time of Note Date/Time of Note DATE: 09/05/18 TIME: 17:57 Post-Anesthesia Notes Post-Anesthesia Note Last documented vital signs Vital Signs Date Temp Pulse Resp B/P (MAP) Pulse Ox O2 O2 Flow FiO2 Time Delivery Rate 09/05/18 98.4 110 20 140/77 100 Room Air 16:16 (98) Activity: WNL Respiratory function: WNL Cardiovascular function: WNL Mental status: Baseline Pain reasonably controlled: Yes Hydration appropriate: Yes Nausea/Vomiting absent: Yes Comments BP: 133/87 HR: 99 RR: 15 T: 98.1 SaO2: 100% ANALIA GIL MD Sep 05, 2018 17:57
[2018-09-05] MEDS: METOCLOPRAMIDE 10 MG INJ IV SCH (18:11)
[2018-09-06] MEDS: METOCLOPRAMIDE 10 MG INJ IV SCH ×4 (00:45→17:31)
[2018-09-06 02:02] VITALS: BP_SYST 106; BP_SYST 132; BP_DIAS 56; BP_DIAS 81; PULSE 100; PULSE 84; RESP 18; RESP 19
[2018-09-06] MEDS: PANTOPRAZOLE 40 MG INJ IV SCH ×2 (05:53→17:30)
[2018-09-06] MEDS: SOD CHLORIDE 0.9% 1,000 ML IV SCH (06:00)
[2018-09-06 08:23] VITALS: BP 135/85; PULSE 100; RESP 19
[2018-09-06] MEDS ORDERED: POTASSIUM CHLORIDE (SR) 20 MEQ TAB PO STA (08:33)
--- NOTE | 2018-09-06 08:52 | PN ---
DATE: 09/06/2018 SUBJECTIVE: The patient had EGD yesterday which showed evidence of esophagitis, gastritis. The bryce ent is clinically improving with current antiemetics. The patient feels he can try advancing diet. No other events noted. OBJECTIVE: VITAL SIGNS: Blood pressure is 132/81, respiration 19, pulse 100, temperature 98.2. HEENT: Head is normocephalic. NECK: Supple. HEART: Regular rate. LUNGS: Show diminished breath sounds at the base. ABDOMEN: Soft, nontender to palpation. No rebound or guarding. EXTREMITIES: Negative for clubbing, cyanosis, no edema. DERMATOLOGIC: No rashes. MUSCULOSKELETAL: No joint effusion. NEUROLOGIC: No change in exam. MEDICATIONS: Have been reviewed. LABORATORY DATA: Has been reviewed. ASSESSMENT AND PLAN: 1. Intractable nausea, vomiting. Etiology secondary to esophagitis, gastritis and recent marijuana use. The patient clinically improving status post EGD. Continue proton pump inhibitor. Continue Ca rafate. Continue antiemetics. 2. 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 Etiology of acute kidney injury is secondary to hemodynamics, volume depletion. Renal function is returning back to baseline with IV fluids, continue to monitor. 3. End-stage renal disease. The patient is status post simultaneous kidney and pancreatic transplan t. The patient currently in acute kidney injury as stated above. Continue current immunosuppressive regimen. Continue to monitor. 4. Leukocytosis, systemic inflammatory response syndrome. Etiology is likely due to stress demargin ation. No evidence of infection. Continue to monitor. 5. Anxiety disorder. Continue Ativan. 6. Hypertension. Blood pressure is controlled. 7. Hypokalemia, replete potassium chloride. 8. Gastrointestinal and deep venous thrombosis prophylaxis. Dictated By: JENNIFER MENDEZ DO NR/NTS Conf#: [id number] DID#: [id number] CC: RAJESH ROBBINS MD;*EndCC*
[2018-09-06] MEDS: SUCRALFATE (100 MG/ML) 10ML CUP PO SCH ×4 (09:34→20:44)
[2018-09-06] MEDS: predniSONE 5 MG TAB PO SCH (09:34)
[2018-09-06] MEDS: MYCOPHENOLATE (SR) 180 MG TAB PO SCH ×2 (09:35→20:45)
[2018-09-06] MEDS: TACROLIMUS 1 MG CAP PO SCH ×2 (09:35→20:44)
[2018-09-06] MEDS: AMLODIPINE 10 MG TAB PO SCH (09:35)
--- NOTE | 2018-09-06 13:10 | PN ---
Date/Time of Note Date/Time of Note DATE: 09/06/18 TIME: 13:05 Assessment/Plan VTE Prophylaxis Risk score (from Nsg)>0 risk: 1 SCD applied (from Nsg): Yes Pharmacological prophylaxis: other (scds) Lines/Catheters IV Catheter Type (from Nrsg): Peripheral IV Urinary Cath still in place: No Assessment/Plan Hospital Course Summary Assessment and Plan: Assessment: Intractable nausea/vomiting-cannabinoid hyperemesis syndrome versus gastroparesis versus other EGD 09/05/18 Severe ulcerative esophagitis, gastritis Gastroparesis, biopsies taken S/p EGD 07/28/17- Impression: Severe ulcerated esophagitis.Small hiatal hernia. Moderate gastritis. Gastric body and antrum biopsy: Negative for h.pylori or malignancy Esophagus biopsy: Acute esophagitis. For virus inclusions/parasites negative for malignancy. SIRS with leukocytosis YUE on top of chronic allograft failure -Chronic prednisone use HTN Anxiety History of Marijuana use- quit for 2-3 months and recently started smoking again -Discussed abstinence of marijuana Plan: Continue PPI/Carafate Gastric emptying study pending Await biopsy results Continue Reglan Patient seen in collaboration with Dr. Quinterso Subjective: Course reviewed with nursing staff Patient interviewed and examined All labs, imaging and other results reviewed The patient resting in bed, states he feels better Will continue same regimen. Discussed results of EGD and plan for NM gastric emptying study pt verbalized understanding PHYSICAL EXAMINATION: GENERAL: Alert & oriented x 3, SKIN: No lesions HEAD: Normocephalic, atraumatic, no tenderness. EYES: Pupils equal reactive to light, no discharge. EARS/NOSE AND THROAT: Ears normal, nose normal, oropharynx normal NECK: Supple, no masses CHEST: Inspection within normal limits. CARDIOVASCULAR: Heart: Regular rate and rhythm RESPIRATORY: Lungs clear to auscultation GASTROINTESTINAL AND LIVER: Abdomen: Soft, non tenderness, non-distended, no hernias, no masses, no organomegaly, no ascites, no guarding, no rebound tenderness, normoactive bowel sounds. Rectal: Deferred. EXTREMITIES: No cyanosis, clubbing or edema. Result Diagram: 09/06/18 0439 09/06/18 0439 Results 24hrs Laboratory Tests Test 09/06/18 04:39 White Blood Count 10.9 H Red Blood Count 4.45 L Hemoglobin 13.7 L Hematocrit 41.7 L Mean Corpuscular Volume 93.7 Mean Corpuscular Hemoglobin 30.8 Mean Corpuscular Hemoglobin Concent 32.9 Red Cell Distribution Width 13.7 Platelet Count 191 Mean Platelet Volume 10.8 H Immature Granulocytes % 0.600 H Neutrophils % 66.3 Lymphocytes % 21.6 Monocytes % 10.9 Eosinophils % 0.1 Basophils % 0.5 Nucleated Red Blood Cells % 0.0 Immature Granulocytes # 0.060 H Neutrophils # 7.2 Lymphocytes # 2.4 Monocytes # 1.2 H Eosinophils # 0.0 Basophils # 0.1 Nucleated Red Blood Cells # 0.0 Sodium Level 142 Potassium Level 3.4 L Chloride Level 107 Carbon Dioxide Level 23 Anion Gap 12 Blood Urea Nitrogen 19 Creatinine 1.40 H Est Glomerular Filtrat Rate mL/min 53 L Glucose Level 94 Calcium Level 9.2 Phosphorus Level 3.0 Magnesium Level 1.7 Exam/Review of Systems Exam Vitals Vital Signs Date Temp Pulse Resp B/P (MAP) Pulse Ox O2 O2 Flow FiO2 Time Delivery Rate 09/06/18 98.3 100 19 135/85 95 08:23 (102) 09/05/18 Room Air 20:00 Intake and Output 09/05/18 09/05/18 09/06/18 1515:00 23:00 07:00 IntakeIntake Total 1650 ml 458 ml 1200 ml OutputOutput Total 600 ml 500 ml 620 ml BalanceBalance 1050 ml -42 ml 580 ml Results Results 24hrs Laboratory Tests Test 09/06/18 04:39 White Blood Count 10.9 H Red Blood Count 4.45 L Hemoglobin 13.7 L Hematocrit 41.7 L Mean Corpuscular Volume 93.7 Mean Corpuscular Hemoglobin 30.8 Mean Corpuscular Hemoglobin Concent 32.9 Red Cell Distribution Width 13.7 Platelet Count 191 Mean Platelet Volume 10.8 H Immature Granulocytes % 0.600 H Neutrophils % 66.3 Lymphocytes % 21.6 Monocytes % 10.9 Eosinophils % 0.1 Basophils % 0.5 Nucleated Red Blood Cells % 0.0 Immature Granulocytes # 0.060 H Neutrophils # 7.2 Lymphocytes # 2.4 Monocytes # 1.2 H Eosinophils # 0.0 Basophils # 0.1 Nucleated Red Blood Cells # 0.0 Sodium Level 142 Potassium Level 3.4 L Chloride Level 107 Carbon Dioxide Level 23 Anion Gap 12 Blood Urea Nitrogen 19 Creatinine 1.40 H Est Glomerular Filtrat Rate mL/min 53 L Glucose Level 94 Calcium Level 9.2 Phosphorus Level 3.0 Magnesium Level 1.7 Medications Medication Current Medications Sodium Chloride 1,000 ml @ 40 mls/hr Q24H IV Last administered on 09/06/18 06:00; Admin Dose 100 MLS/HR; Start 09/04/18 at 04:00 Ondansetron HCl (Zofran Inj) 4 mg Q6H PRN IV NAUSEA AND/OR VOMITING Last administered on 09/05/18 09:39; Admin Dose 4 MG; Start 09/04/18 at 04:00 Morphine Sulfate (morphine) 2 mg Q4H PRN IV SEVERE PAIN LEVEL 7-10 Last administered on 09/05/18 12:33; Admin Dose 2 MG; Start 09/04/18 at 04:00 Alprazolam (Xanax) 1 mg TID PRN PO ANXIETY Last administered on 09/05/18 01:29; Admin Dose 1 MG; Start 09/04/18 at 04:00 Amlodipine Besylate (Norvasc) 10 mg DAILY PO Last administered on 09/06/18 09:35; Admin Dose 10 MG; Start 09/04/18 at 09:00 Mycophenolate Sodium (Myfortic) 360 mg BID PO Last administered on 09/06/18 09:35; Admin Dose 360 MG; Start 09/04/18 at 09:00 Pantoprazole (Protonix Tab) 40 mg BID@0600,1800 PO ; Start 09/04/18 at 06:00; Status Hold Prednisone (Prednisone) 5 mg DAILY PO Last administered on 09/06/18 09:34; Admin Dose 5 MG; Start 09/04/18 at 09:00 Tacrolimus (Prograf) 2 mg BID PO Last administered on 09/06/18 09:35; Admin Dose 2 MG; Start 09/04/18 at 09:00 Pantoprazole (Protonix Iv) 40 mg BID@06,18 IV Last administered on 09/06/18 05:53; Admin Dose 40 MG; Start 09/04/18 at 18:00 Prochlorperazine (Compazine Inj) 5 mg Q4H PRN IV NAUSEA AND/OR VOMITING Last administered on 09/05/18 04:15; Admin Dose 5 MG; Start 09/04/18 at 07:30 Sucralfate (Carafate Susp) 1 gm QID PO Last administered on 09/06/18at 09:34; Adm in Dose 1 GM; Start 09/05/18 at 13:00 Metoclopramide HCl (Reglan) 10 mg Q6 IV Last administered on 09/06/18at 05:53; Admin Dose 10 MG; Start 09/05/18 at 18:00 MARIO PAULINO Sep 06, 2018 13:10
--- NOTE | 2018-09-06 14:08 | CONS ---
Assessment/Plan Assessment/Plan Hospital Course (Demo Recall) No acute events overnight, patient is sleeping he is in no distress no fevers overnight WBC went down to 10.9 no shift no bands BUN 19 creatinine 1.40 Urinalysis was negative for nitrite leukocyte Estrace CT abdomen and pelvis revealed colonic diverticulosis no acute diverticulitis left pelvic renal transplant multiple bilateral nonobstructive [place] renal calculi mild nonspecific renal transplant hydronephrosis. Mild enlargement of the prostate. Large right hydrocephaly. Please see full report in the chart Physical examination: This is a wasted well-developed ill-appearing middle-aged man who is alert in no distress. Head atraumatic normocephalic. Neck is supple. Chest rise symmetrical breath sounds clear. Heart: S1-S2. Abdomen soft bowel sounds present. Extremities without cyanosis. Assessment: 1. Systemic inflammatory response syndrome 2. Intractable nausea status post vomiting 3. Acute on chronic kidney disease 4. History of kidney/pancreatic transplant, on immunosuppressive therapy 5. Hypertension 6. Anxiety Plan: Patient is stable, no evidence of active infection, WBC trending down, he is off antibiotics, gastroenterology on case, he is status post EGD yesterday that revealed severe esophagitis, gastritis and gastroparesis. Gastroenterology on case, H. pylori negative, biopsy revealed no malignancy Consultation Date/Type/Reason Admit Date/Time Sep 06, 2018 at 09:43 Initial Consult Date 09/05/18 Type of Consult id Date/Time of Note DATE: 09/06/18 TIME: 14:06 Exam/Review of Systems Exam Vitals Vital Signs Date Temp Pulse Resp B/P (MAP) Pulse Ox O2 O2 Flow FiO2 Time Delivery Rate 09/06/18 98.3 100 19 135/85 95 08:23 (102) 09/05/18 Room Air 20:00 Intake and Output 09/05/18 09/05/18 09/06/18 1515:00 23:00 07:00 IntakeIntake Total 1650 ml 458 ml 1200 ml OutputOutput Total 600 ml 500 ml 620 ml BalanceBalance 1050 ml -42 ml 580 ml Results Result Diagram: 09/06/18 0439 09/06/18 0439 Results 24hrs Laboratory Tests Test 09/06/18 04:39 White Blood Count 10.9 H Red Blood Count 4.45 L Hemoglobin 13.7 L Hematocrit 41.7 L Mean Corpuscular Volume 93.7 Mean Corpuscular Hemoglobin 30.8 Mean Corpuscular Hemoglobin Concent 32.9 Red Cell Distribution Width 13.7 Platelet Count 191 Mean Platelet Volume 10.8 H Immature Granulocytes % 0.600 H Neutrophils % 66.3 Lymphocytes % 21.6 Monocytes % 10.9 Eosinophils % 0.1 Basophils % 0.5 Nucleated Red Blood Cells % 0.0 Immature Granulocytes # 0.060 H Neutrophils # 7.2 Lymphocytes # 2.4 Monocytes # 1.2 H Eosinophils # 0.0 Basophils # 0.1 Nucleated Red Blood Cells # 0.0 Sodium Level 142 Potassium Level 3.4 L Chloride Level 107 Carbon Dioxide Level 23 Anion Gap 12 Blood Urea Nitrogen 19 Creatinine 1.40 H Est Glomerular Filtrat Rate mL/min 53 L Glucose Level 94 Calcium Level 9.2 Phosphorus Level 3.0 Magnesium Level 1.7 Medications Medication Current Medications Sodium Chloride 1,000 ml @ 40 mls/hr Q24H IV Last administered on 09/06/18 06:00; Admin Dose 100 MLS/HR; Start 09/04/18 at 04:00 Ondansetron HCl (Zofran Inj) 4 mg Q6H PRN IV NAUSEA AND/OR VOMITING Last administered on 09/05/18 09:39; Admin Dose 4 MG; Start 09/04/18 at 04:00 Morphine Sulfate (morphine) 2 mg Q4H PRN IV SEVERE PAIN LEVEL 7-10 Last administered on 09/05/18 12:33; Admin Dose 2 MG; Start 09/04/18 at 04:00 Alprazolam (Xanax) 1 mg TID PRN PO ANXIETY Last administered on 09/05/18 01:29; Admin Dose 1 MG; Start 09/04/18 at 04:00 Amlodipine Besylate (Norvasc) 10 mg DAILY PO Last administered on 09/06/18 09:35; Admin Dose 10 MG; Start 09/04/18 at 09:00 Mycophenolate Sodium (Myfortic) 360 mg BID PO Last administered on 09/06/18 09:35; Admin Dose 360 MG; Start 09/04/18 at 09:00 Pantoprazole (Protonix Tab) 40 mg BID@0600,1800 PO ; Start 09/04/18 at 06:00; Status Hold Prednisone (Prednisone) 5 mg DAILY PO Last administered on 09/06/18 09:34; Admin Dose 5 MG; Start 09/04/18 at 09:00 Tacrolimus (Prograf) 2 mg BID PO Last administered on 09/06/18 09:35; Admin Dose 2 MG; Start 09/04/18 at 09:00 Pantoprazole (Protonix Iv) 40 mg BID@06,18 IV Last administered on 09/06/18 05:53; Admin Dose 40 MG; Start 09/04/18 at 18:00 Prochlorperazine (Compazine Inj) 5 mg Q4H PRN IV NAUSEA AND/OR VOMITING Last administered on 09/05/18 04:15; Admin Dose 5 MG; Start 09/04/18 at 07:30 Sucralfate (Carafate Susp) 1 gm QID PO Last administered on 09/06/18 09:34; Admin Dose 1 GM; Start 09/05/18 at 13:00 Metoclopramide HCl (Reglan) 10 mg Q6 IV Last administered on 09/06/18 05:53; Admin Dose 10 MG; Start 09/05/18 at 18:00 FREEMAN RENNER NP Sep 06, 2018 14:08
[2018-09-06 15:30] VITALS: BP 111/75; PULSE 105; RESP 19
[2018-09-06 19:35] VITALS: BP 129/80; PULSE 100; RESP 18
[2018-09-07] MEDS: METOCLOPRAMIDE 10 MG INJ IV SCH ×3 (00:26→13:08)
[2018-09-07 03:45] VITALS: BP 161/90; PULSE 90; RESP 18
[2018-09-07] MEDS: PANTOPRAZOLE 40 MG INJ IV SCH (05:50)
[2018-09-07] MEDS: SOD CHLORIDE 0.9% 1,000 ML IV SCH (05:57)
[2018-09-07 07:27] VITALS: BP 131/78; PULSE 92; RESP 19
[2018-09-07] MEDS ORDERED: POTASSIUM CHLORIDE (SR) 20 MEQ TAB PO STA (08:19)
--- NOTE | 2018-09-07 08:59 | PN ---
DATE: 09/07/2018 SUBJECTIVE: The patient is clinically improving pending a Gastrografin study this morning. No other events noted. OBJECTIVE: VITAL SIGNS: Blood pressure is 131/78, respiration 19, pulse 92, temperature 98.6. HEENT: Head is normocephalic. NECK: Supple. HEART: Regular rate. LUNGS: Show diminished breath sounds at the base. ABDOMEN: Soft, nontender to palpation without rebound or guarding. EXTREMITIES: Negative for clubbing, cyanosis, no edema. DERMATOLOGIC: No rashes. MUSCULOSKELETAL: No joint effusions. NEUROLOGIC: No change in exam. MEDICATIONS: Reviewed. LABORATORY DATA: Laboratory data from 09/07/2018, was reviewed. ASSESSMENT AND PLAN: 1. Intractable nausea and vomiting, resolved. Etiology is likely secondary to gastritis, esophagiti s, recent marijuana use. Gastric emptying study is pending per GI, will continue to monitor. Contin ue PPI and Carafate. 2. Nonoliguric acute kidney injury on top of chronic allograft failure with previous baseline creati nine 1.3 to 1.4 mg per deciliter. Etiology of YUE is secondary to hemodynamics. Renal function is i mproved, back to baseline. Continue current treatment plan. Will de-escalate IV fluids. 3. End-stage renal disease. The patient is status post simultaneous kidney and pancreatic transplan t, currently in acute kidney injury as stated above. Continue current immunosuppressive regimen. 4. Leukocytosis, SIRS, resolved. 5. Anxiety disorder. Continue Ativan. 6. Hypertension. Blood pressure is controlled. 7. Hypokalemia and hypomagnesemia. Continue to monitor and replete. 8. GI and DVT prophylaxis. Dictated By: JENNIFER ELIAS/MAYTE Conf#: [id number] DID#: [id number]
[2018-09-07] MEDS: SUCRALFATE (100 MG/ML) 10ML CUP PO SCH ×2 (09:56→13:08)
[2018-09-07] MEDS: TACROLIMUS 1 MG CAP PO SCH (09:56)
[2018-09-07] MEDS: MYCOPHENOLATE (SR) 180 MG TAB PO SCH (09:56)
[2018-09-07] MEDS: predniSONE 5 MG TAB PO SCH (09:57)
[2018-09-07] MEDS: AMLODIPINE 10 MG TAB PO SCH (09:57)
[2018-09-07] MEDS ORDERED: MAGNESIUM SULFATE 2 GM/50 ML 50 ML IVPB ONE (10:00)
--- NOTE | 2018-09-07 13:40 | PN ---
Date/Time of Note Date/Time of Note DATE: 09/07/18 TIME: 13:30 Assessment/Plan VTE Prophylaxis Risk score (from Ns)>0 risk: 1 SCD applied (from Ns): Yes Pharmacological prophylaxis: NA/contraindicated Pharm contraindication: bleeding Lines/Catheters IV [facility]from [facility] [place] Urinary Cath still in place: No Assessment/Plan Assessment/Plan Assessment: Intractable nausea/vomiting-cannabinoid hyperemesis syndrome versus gastroparesis versus other EGD 09/05/18 Severe ulcerative esophagitis, gastritis Gastroparesis, biopsies taken S/p EGD 07/28/17- Impression: Severe ulcerated esophagitis.Small hiatal hernia. Moderate gastritis. Gastric body and antrum biopsy: Negative for h.pylori or malignancy Esophagus biopsy: Acute esophagitis. For virus inclusions/parasites negative for malignancy. 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 pylori Recommend repeat EGD in 2-3 months Patient seen in collaboration with Dr. Quinteros Subjective: Course reviewed with nursing staff Patient interviewed and examined All labs, imaging and other results reviewed The patient is doing well. Denies abdominal pain, nausea or vomiting. No evidence of overt GI bleeding. Results of EGD and biopsies discussed with the patient. Gastric imaging study was negative. Explained the treatment plan and the follow-up. Patient will schedule appointment as an outpatient for repeat EGD in 3 months. Patient appears adequate for outpatient management. PHYSICAL EXAMINATION: GENERAL: Alert & oriented x 3, SKIN: No lesions HEAD: Normocephalic, atraumatic, no tenderness. EYES: Pupils equal reactive to light, no discharge. EARS/NOSE AND THROAT: Ears normal, nose normal, oropharynx normal NECK: Supple, no masses CHEST: Inspection within normal limits. CARDIOVASCULAR: Heart: Regular rate and rhythm RESPIRATORY: Lungs clear to auscultation GASTROINTESTINAL AND LIVER: Abdomen: Soft, non tenderness, non-distended, no hernias, no masses, no organomegaly, no ascites, no guarding, no rebound tenderness, normoactive bowel sounds. Rectal: Deferred. EXTREMITIES: No cyanosis, clubbing or edema. Result Diagram: 09/07/18 0427 09/07/18426 Results 24hrs Laboratory Tests Test 09/07/18 04:27 White Blood Count 7.4 # Red Blood Count 4.50 L Hemoglobin 13.9 L Hematocrit 41.8 L Mean Corpuscular Volume 92.9 Mean Corpuscular Hemoglobin 30.9 Mean Corpuscular Hemoglobin Concent 33.3 Red Cell Distribution Width 13.2 Platelet Count 183 Mean Platelet Volume 10.8 H Immature Granulocytes % 0.700 H Neutrophils % 66.4 Lymphocytes % 21.1 Monocytes % 11.1 H Eosinophils % 0.3 Basophils % 0.4 Nucleated Red Blood Cells % 0.0 Immature Granulocytes # 0.050 H Neutrophils # 4.9 Lymphocytes # 1.6 Monocytes # 0.8 Eosinophils # 0.0 Basophils # 0.0 Nucleated Red Blood Cells # 0.0 Sodium Level 142 Potassium Level 3.4 L Chloride Level 105 Carbon Dioxide Level 27 Anion Gap 10 Blood Urea Nitrogen 17 Creatinine 1.21 Est Glomerular Filtrat Rate mL/min > 60 Glucose Level 88 Calcium Level 9.3 Phosphorus Level 2.6 Magnesium Level 1.5 L CC: ALMAZ GARNER ; Exam/Review of Systems Exam Vitals Vital Signs Date Temp Pulse Resp B/P (MAP) Pulse Ox O2 O2 Flow FiO2 Time Delivery Rate 09/07/18 98.2 92 19 131/78 99 07:27 (95) 09/06/18 Room Air 15:30 Intake and Output 09/06/18 09/06/18 09/07/18 1515:00 23:00 07:00 IntakeIntake Total 590 ml 660 ml 650 ml OutputOutput Total 600 ml 900 ml 200 ml BalanceBalance -10 ml -240 ml 450 ml Results Results 24hrs Laboratory Tests Test 09/07/18 04:27 White Blood Count 7.4 # Red Blood Count 4.50 L Hemoglobin 13.9 L Hematocrit 41.8 L Mean Corpuscular Volume 92.9 Mean Corpuscular Hemoglobin 30.9 Mean Corpuscular Hemoglobin Concent 33.3 Red Cell Distribution Width 13.2 Platelet Count 183 Mean Platelet Volume 10.8 H Immature Granulocytes % 0.700 H Neutrophils % 66.4 Lymphocytes % 21.1 Monocytes % 11.1 H Eosinophils % 0.3 Basophils % 0.4 Nucleated Red Blood Cells % 0.0 Immature Granulocytes # 0.050 H Neutrophils # 4.9 Lymphocytes # 1.6 Monocytes # 0.8 Eosinophils # 0.0 Basophils # 0.0 Nucleated Red Blood Cells # 0.0 Sodium Level 142 Potassium Level 3.4 L Chloride Level 105 Carbon Dioxide Level 27 Anion Gap 10 Blood Urea Nitrogen 17 Creatinine 1.21 Est Glomerular Filtrat Rate mL/min > 60 Glucose Level 88 Calcium Level 9.3 Phosphorus Level 2.6 Magnesium Level 1.5 L Medications Medication Current Medications Sodium Chloride 1,000 ml @ 40 mls/hr Q24H IV Last administered on 09/07/18 05:57; Admin Dose 40 MLS/HR; Start 09/04/18 at 04:00 Ondansetron HCl (Zofran Inj) 4 mg Q6H PRN IV NAUSEA AND/OR VOMITING Last administered on 09/05/18 09:39; Admin Dose 4 MG; Start 09/04/18 at 04:00 Morphine Sulfate (morphine) 2 mg Q4H PRN IV SEVERE PAIN LEVEL 7-10 Last administered on 09/05/18 12:33; Admin Dose 2 MG; Start 09/04/18 at 04:00 Alprazolam (Xanax) 1 mg TID PRN PO ANXIETY Last administered on 09/05/18 01:29; Admin Dose 1 MG; Start 09/04/18 at 04:00 Amlodipine Besylate (Norvasc) 10 mg DAILY PO Last administered on 09/07/18 09:57; Admin Dose 10 MG; Start 09/04/18 at 09:00 Mycophenolate Sodium (Myfortic) 360 mg BID PO Last administered on 09/07/18 09:56; Admin Dose 360 MG; Start 09/04/18 at 09:00 Pantoprazole (Protonix Tab) 40 mg BID@0600,1800 PO ; Start 09/04/18 at 06:00; Status Hold Prednisone (Prednisone) 5 mg DAILY PO Last administered on 09/07/18 09:57; Admin Dose 5 MG; Start 09/04/18 at 09:00 Tacrolimus (Prograf) 2 mg BID PO Last administered on 09/07/18 09:56; Admin Dose 2 MG; Start 09/04/18 at 09:00 Pantoprazole (Protonix Iv) 40 mg BID@06,18 IV Last administered on 09/07/18 05:50; Admin Dose 40 MG; Start 09/04/18 at 18:00 Prochlorperazine (Compazine Inj) 5 mg Q4H PRN IV NAUSEA AND/OR VOMITING Last administered on 09/05/18 04:15; Admin Dose 5 MG; Start 09/04/18 at 07:30 Sucralfate (Carafate Susp) 1 gm QID PO Last administered on 09/07/18 13:08; Admin Dose 1 GM; Start 09/05/18 at 13:00 Metoclopramide HCl (Reglan) 10 mg Q6 IV Last administered on 09/07/18 13:08; Admin Dose 10 MG; Start 09/05/18 at 18:00 GAURAV AGUIRRE NP Sep 07, 2018 13:40
[2018-09-07 14:20] VITALS: BP 128/62; RESP 18
--- NOTE | 2018-09-07 14:54 | CONS ---
Assessment/Plan Assessment/Plan Hospital Course (Demo Recall) No acute events, alert, feels good, no fevers, no nausea no diarrhea Urinalysis was negative for nitrite leukocyte Estrace CT abdomen and pelvis revealed colonic diverticulosis no acute diverticulitis left pelvic renal transplant multiple bilateral nonobstructive [place] renal calculi mild nonspecific renal transplant hydronephrosis. Mild enlargement of the prostate. Large right hydrocephaly. Please see full report in the chart Physical examination: This is a wasted well-developed ill-appearing middle-aged man who is alert in no distress. Head atraumatic normocephalic. Neck is sup ple. Chest rise symmetrical breath sounds clear. Heart: S1-S2. Abdomen soft bowel sounds present. Extremities without cyanosis. Assessment: 1. Systemic inflammatory response syndrome 2. Intractable nausea status post vomiting, resolving==> EGD revealed severe esophagitis, gastritis and gastroparesis. Gastroenterology on case, H. pylori negative, biopsy revealed no malignancy 3. Acute on chronic kidney disease 4. History of kidney/pancreatic transplant, on immunosuppressive therapy 5. Hypertension 6. Anxiety Plan: Doing better, continue present care, observe off antibiotics Consultation Date/Type/Reason Admit Date/Time Sep 06, 2018 at 09:43 Initial Consult Date 09/05/18 Type of Consult id Date/Time of Note DATE: 09/07/18 TIME: 14:53 Exam/Review of Systems Exam Vitals Vital Signs Date Temp Pulse Resp B/P (MAP) Pulse Ox O2 O2 Flow FiO2 Time Delivery Rate 09/07/18 98.2 92 19 131/78 99 07:27 (95) 09/06/18 Room Air 15:30 Intake and Output 09/06/18 09/06/18 09/07/18 1515:00 23:00 07:00 IntakeIntake Total 590 ml 660 ml 650 ml OutputOutput Total 600 ml 900 ml 200 ml BalanceBalance -10 ml -240 ml 450 ml Results Result Diagram: 09/07/18 0427 09/07/18 0427 Results 24hrs Laboratory Tests Test 09/07/18 04:27 White Blood Count 7.4 # Red Blood Count 4.50 L Hemoglobin 13.9 L Hematocrit 41.8 L Mean Corpuscular Volume 92.9 Mean Corpuscular Hemoglobin 30.9 Mean Corpuscular Hemoglobin Concent 33.3 Red Cell Distribution Width 13.2 Platelet Count 183 Mean Platelet Volume 10.8 H Immature Granulocytes % 0.700 H Neutrophils % 66.4 Lymphocytes % 21.1 Monocytes % 11.1 H Eosinophils % 0.3 Basophils % 0.4 Nucleated Red Blood Cells % 0.0 Immature Granulocytes # 0.050 H Neutrophils # 4.9 Lymphocytes # 1.6 Monocytes # 0.8 Eosinophils # 0.0 Basophils # 0.0 Nucleated Red Blood Cells # 0.0 Sodium Level 142 Potassium Level 3.4 L Chloride Level 105 Carbon Dioxide Level 27 Anion Gap 10 Blood Urea Nitrogen 17 Creatinine 1.21 Est Glomerular Filtrat Rate mL/min > 60 Glucose Level 88 Calcium Level 9.3 Phosphorus Level 2.6 Magnesium Level 1.5 L Medications Medication Current Medications Sodium Chloride 1,000 ml @ 40 mls/hr Q24H IV Last administered on 09/07/18 05:57; Admin Dose 40 MLS/HR; Start 09/04/18 at 04:00 Ondansetron HCl (Zofran Inj) 4 mg Q6H PRN IV NAUSEA AND/OR VOMITING Last administered on 09/05/18 09:39; Admin Dose 4 MG; Start 09/04/18 at 04:00 Morphine Sulfate (morphine) 2 mg Q4H PRN IV SEVERE PAIN LEVEL 7-10 Last administered on 09/05/18 12:33; Admin Dose 2 MG; Start 09/04/18 at 04:00 Alprazolam (Xanax) 1 mg TID PRN PO ANXIETY Last administered on 09/05/18 01:29; Admin Dose 1 MG; Start 09/04/18 at 04:00 Amlodipine Besylate (Norvasc) 10 mg DAILY PO Last administered on 09/07/18 09:57; Admin Dose 10 MG; Start 09/04/18 at 09:00 Mycophenolate Sodium (Myfortic) 360 mg BID PO Last administered on 09/07/18 09:56; Admin Dose 360 MG; Start 09/04/18 at 09:00 Pantoprazole (Protonix Tab) 40 mg BID@0600,1800 PO ; Start 09/04/18 at 06:00; Status Hold Prednisone (Prednisone) 5 mg DAILY PO Last administered on 09/07/18 09:57; Adm in Dose 5 MG; Start 09/04/18 at 09:00 Tacrolimus (Prograf) 2 mg BID PO Last administered on 09/07/18 09:56; Admin Dose 2 MG; Start 09/04/18 at 09:00 Pantoprazole (Protonix Iv) 40 mg BID@06,18 IV Last administered on 09/07/18 05:50; Admin Dose 40 MG; Start 09/04/18 at 18:00 Prochlorperazine (Compazine Inj) 5 mg Q4H PRN IV NAUSEA AND/OR VOMITING Last administered on 09/05/18 04:15; Admin Dose 5 MG; Start 09/04/18 at 07:30 Sucralfate (Carafate Susp) 1 gm QID PO Last administered on 09/07/18 13:08; Admin Dose 1 GM; Start 09/05/18 at 13:00 Metoclopramide HCl (Reglan) 10 mg Q6 IV Last administered on 09/07/18 13:08; Admin Dose 10 MG; Start 09/05/18 at 18:00 FREEMAN RENNER NP Sep 07, 2018 14:54
--- NOTE | 2018-09-20 21:14 | DS ---
DATE OF ADMISSION: 09/06/2018 DATE OF DISCHARGE: 09/07/2018 HOSPITAL COURSE: This is a 52-year-old male well known to me with a past medical history of simultan eous renal and pancreatic transplant in 2005, creatinine 1.3 to 1.4 mg/dL, history of CMV virus, hist ory of cyclic vomiting syndrome, history of ulcerative esophagitis who presented to the [facility] with complaints to date of severe nausea and vomiting. The patient upon arrival was noted to be in acute kidney injury. The patient was started on IV fluids, IV antibiotics, IV Protoni x and admitted to telemetry. The patient while in telemetry was evaluated by gastroenterology. EGD was performed and found evidence of esophageal gastritis. The patient was continued on proton pump i nhibitor. Carafate was added to the patient's regimen. The patient is clinically improved with a co urse of medical management. White count normalized. The patient's acute kidney injury resolved. Th e patient was then subsequently discharged home with a followup in outpatient setting. Please also n ote the patient during hospital course had a gastric emptying study, which was within normal limits. FINAL DIAGNOSES: 1. Nausea, vomiting secondary to erosive esophagitis and gastritis. 2. Nonoliguric acute kidney injury. Resolved. 3. Chronic allograft failure, stable. Currently, with renal function back to baseline. 4. History of end-stage renal disease status post simultaneous kidney-pancreatic transplant. 5. Systemic inflammatory response syndrome, resolved. 6. Anxiety disorder. 7. Hypertension. 8. Electrolyte abnormality, resolved. 9. Gastrointestinal and deep vein thrombosis prophylaxis. FINAL MEDICATIONS: Please see reconciliation list. CONDITION ON DISCHARGE: At the time of discharge, the patient is stable, no acute distress. Dictated By: JENNIFER MENDEZ DO NR/NTS Conf#: [id number] DID#: [id number] CC: RAJESH ROBBINS MD;*EndCC*
== END 2018-09-07 15:20 | disposition home or self-care (01) | DRG 381 ==
LOC: E/R 21:16 → MS1 09-04 01:28 → OBSVTOIN 09-06 09:43
PROVIDERS: ADMIT Internal Medicine Nephrology; ATTEND Internal Medicine Nephrology
PROC: 0DB68ZX Excision of Stomach, Via Natural or Artificial Opening Endoscopic, Diagnostic (ICD-10-PCS; principal; 2018-09-05 20:00)
DX: K22.10 Ulcer of esophagus without bleeding (principal); N17.9 Acute kidney failure, unspecified; Z94.83 Pancreas transplant status; Z94.0 Kidney transplant status; T86.891 Other transplanted tissue failure; R65.10 Systemic inflammatory response syndrome (SIRS) of non-infectious origin without acute organ dysfunction; K29.70 Gastritis, unspecified, without bleeding; G43.A0 Cyclical vomiting, in migraine, not intractable; F12.90 Cannabis use, unspecified, uncomplicated; R00.0 Tachycardia, unspecified; F41.9 Anxiety disorder, unspecified; I10 Essential (primary) hypertension; K44.9 Diaphragmatic hernia without obstruction or gangrene; Z79.52 Long term (current) use of systemic steroids
CPT/HCPCS: 74176; 78264; 80048; 80053; 81001; 81003; 82043; 83690; 83735; 84100; 84155; 84300; 85025; 88305; 88312; 96374; 96375; A9541; C9113; G0378; J0780; J2060; J2270; J2405; J2765; J3475; J7030; J7507; J7512

== ENCOUNTER 2018-09-25 11:11 | Emergency (ER) | payer MEDICARE, OTHER ==
[~2018-09-25] VITALS: Ht 177.8 cm; Wt 66.8 kg
[~2018-09-25 11:11] MED LIST changes: +METO-448 PO
[2018-09-25 11:16] VITALS: Ht 177.8 cm; Wt 66.8 kg
[2018-09-25] MEDS ORDERED: METOCLOPRAMIDE 10 MG INJ IV STA (12:19)
[2018-09-25] MEDS ORDERED: SOD CHLORIDE 0.9% 1,000 ML IV STA (12:19)
[2018-09-25] MEDS ORDERED: FAMOTIDINE 20 MG INJ IV ONE (12:30)
[2018-09-25] MEDS ORDERED: LORAZEPAM 2 MG INJ IV ONE (12:30)
[2018-09-25] MEDS ORDERED: SOD CHLORIDE 0.9% 1,000 ML IV ONE (13:44)
[2018-09-25] MEDS ORDERED: SOD CHLORIDE 0.9% 1,500 ML IV ONE (13:47)
[2018-09-25] MEDS ORDERED: METO10TA92 PO (14:32)
[2018-09-25] MEDS ORDERED: ALPR1TAB2 PO (14:32)
--- NOTE | 2018-09-25 14:38 | ERD ---
ER Documentation Chief Complaint Chief Complaint pt is bib self with c/o fall last night in bathtub, hx transplant 1999 HPI 52-year-old male presents with a history of cyclical vomiting syndrome. 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 Patient has regular admissions for intractable vomiting. Patient does have a history of marijuana use although has not used in 2 weeks symptoms recur. D enies significant abdominal pain. He feels dehydrated. He has a history of atrial fibrillation as well but feels he is in sinus rhythm. Patient did have a fall in the bathtub as he was vomiting but denies any pain or concerns about any injury to his fall today. There is no history of loss of consciousness, visual changes, additional concerning symptoms per the patient. ROS All systems reviewed and are negative except as per history of present illness. Medications Home Meds Active Scripts Alprazolam* (Xanax*) 1 Mg Tab, 1 MG PO TID, #14 TAB Prov:WALTER MCARTHUR MD 09/25/18 Metoclopramide* (Reglan*) 10 Mg Tablet, 10 MG PO Q6 PRN for NAUSEA AND/OR VOMITING, #20 TAB Prov:WALTER MCARTHUR MD 09/25/18 Pantoprazole* (Protonix*) 40 Mg Tablet., 40 MG PO BID, #60 TAB Prov:DEON ROSE MD 07/29/17 Reported Medications Metoprolol Tartrate* (Lopressor*) 25 Mg Tab, 25 MG PO DAILY, #60 TAB 09/04/18 Mycophenolate Sodium* (Mycophenolic Acid*) 360 Mg Tablet., 360 MG PO BID, TAB 07/26/17 Tacrolimus* (Tacrolimus*) 1 Mg Capsule, 2 MG PO BID, CAP 07/26/17 Amlodipine Besylate* (Amlodipine Besylate*) 10 Mg Tablet, 10 MG PO DAILY, #30 TAB 07/26/17 Prednisone* (Prednisone*) 5 Mg Tab, 5 MG PO DAILY, TAB 07/26/17 Alprazolam* (Alprazolam*) 1 Mg Tablet, 1 MG PO TID PRN for ANXIETY, TAB 07/26/17 Allergies Allergies: Coded Allergies: No Known Allergies (Verified Allergy, Unknown, 01/03/18) PMhx/Soc History of Surgery: Yes (renal and pancreas transplant, eye sx, hernia sx) Anesthesia Reaction: No Hx Neurological Disorder: No Hx Respiratory Disorders: No Hx Cardiac Disorders: Yes (afib,htn) Hx Psychiatric Problems: Yes (anxiety) Hx Miscellaneous Medical Probl: No Hx Alcohol Use: Yes (1 glass of wine daily) Hx Substance Use: Yes (medical marijuana) Hx Tobacco Use: No Smoking Status: Never smoker FmHx Family History: No diabetes, No coronary disease, No other Physical Exam Vitals Vital Signs Date Temp Pulse Resp B/P (MAP) Pulse Ox O2 O2 Flow FiO2 Time Delivery Rate 09/25/18 99.0 90 18 101/65 99 Room Air 15:54 (77) 09/25/18 96.0 115 20 109/59 98 11:16 (76) Physical Exam Const: No acute distress Head: Atraumatic Eyes: Normal Conjunctiva ENT: Normal External Ears, Nose and Mouth. Dry lips. Neck: Full range of motion. No meningismus. Resp: Clear to auscultation bilaterally Cardio: Regular rate and rhythm, no murmurs Abd: Soft, non tender, non distended. Normal bowel sounds Skin: No petechiae or rashes Back: No midline or flank tenderness Ext: No cyanosis, or edema Neur: Awake and alert Psych: Normal Mood and Affect Result Diagram: 09/25/18 1230 09/25/18 1230 Results 24 hrs Laboratory Tests Test 09/25/18 12:30 White Blood Count 16.4 10^3/ul Red Blood Count 5.23 10^6/ul Hemoglobin 16.0 g/dl Hematocrit 48.0 % Mean Corpuscular Volume 91.8 fl Mean Corpuscular Hemoglobin 30.6 pg Mean Corpuscular Hemoglobin Concent 33.3 g/dl Red Cell Distribution Width 14.0 % Platelet Count 294 10^3/UL Mean Platelet Volume 10.3 fl Immature Granulocytes % 0.700 % Neutrophils % 76.8 % Lymphocytes % 14.8 % Monocytes % 7.1 % Eosinophils % 0.2 % Basophils % 0.4 % Nucleated Red Blood Cells % 0.0 /100WBC Immature Granulocytes # 0.110 10^3/ul Neutrophils # 12.6 10^3/ul Lymphocytes # 2.4 10^3/ul Monocytes # 1.2 10^3/ul Eosinophils # 0.0 10^3/ul Basophils # 0.1 10^3/ul Nucleated Red Blood Cells # 0.0 10^3/ul Sodium Level 142 mmol/L Potassium Level 3.8 mmol/L Chloride Level 102 mmol/L Carbon Dioxide Level 26 mmol/L Anion Gap 14 Blood Urea Nitrogen 21 mg/dl Creatinine 3.12 mg/dl Est Glomerular Filtrat Rate mL/min 21 mL/min Glucose Level 122 mg/dl Calcium Level 10.9 mg/dl Total Bilirubin 0.5 mg/dl Direct Bilirubin 0.00 mg/dl Indirect Bilirubin 0.5 mg/dl Aspartate Amino Transf (AST/SGOT) 17 IU/L Alanine Aminotransferase (ALT/SGPT) 30 IU/L Alkaline Phosphatase 77 IU/L Total Protein 7.9 g/dl Albumin 4.7 g/dl Globulin 3.20 g/dl Albumin/Globulin Ratio 1.46 Lipase 25 U/L Current Medications Medications Dose Sig/Shalonda Start Time Status Last (Trade) Ordered Route PRN Stop Time Admin Dose Reason Admin Sodium 1,000 ml @ Q1H STAT 09/25/18 DC 09/25/18 Chloride 1,000 mls/hr IV 12:19 12:51 09/25/18 13:18 10 mg ONCE STAT 09/25/18 DC 09/25/18 Metoclopramid IV 12:19 12:50 e HCl 09/25/18 12:20 (Reglan) Famotidine 20 mg ONCE ONCE 09/25/18 DC 09/25/18 (Pepcid Iv) IV 12:30 12:50 09/25/18 12:31 Lorazepam 1 mg ONCE ONCE 09/25/18 DC 09/25/18 (Ativan) IV 12:30 12:50 09/25/18 12:31 Sodium 1,000 ml @ Q0M ONCE 09/25/18 DC Chloride 0 mls/hr IV 13:44 09/25/18 13:48 Sodium 1,500 ml @ Q0M ONCE 09/25/18 DC 09/25/18 Chloride 0 mls/hr IV 13:47 13:53 09/25/18 13:53 Procedures/MDM Patient presents with acute vomiting with a history of cyclical vomiting syndrom e. Patient was given 30 cc/kg normal saline IV bolus, Reglan 10 mg IV and Ativan 1 mg IV. Patient had resolution of vomiting and felt much better. Patient CMP shows elevated BUN/creatinine at 21 and 3.12. Patient has a history of acute kidney injury which usually resolves with IV fluids. Results and possibility of admission were discussed with patient. Patient does not want to be admitted to the hospital. Patient has mild leukocytosis but a benign abdomen on serial exam suggesting stress response given patient's history. Patient is well-appearing after observation treatment. Patient was treated with a short course of Xanax and Reglan as this is his usual treatment. Is advised to fo llow-up with primary doctor, drink plenty fluids and return for recurrent vomiting, abdominal pain, fevers, new worsening symptoms. The patient was stable with no new complaints during the ER course. Clinically, there is no current evidence to suggest meningitis, sepsis, acute abdomen, pneumonia, s troke, acute coronary syndrome, pulmonary embolism, aortic dissection or any other emergent condition appearing to require further evaluation or hospitalization. Patient counseled regarding my diagnostic impression and care plan. Prior to discharge all questions answered. Pt agrees with treatment plan and understands strict return precautions. Pt is instructed to follow up with primary care provider within 24-48 hours. Precautionary instructions provided including instructions to return to the ER if not improving or for any worsening or changing symptoms or concerns. EKG: Rate/Rhythm: Normal Sinus Rhythm. Rate equals 87 QRS, ST, T-waves: No changes consistent w/ acute ischemia Impression: No evidence of ischemia or arrhythmia. No evidence of atrial fibrillation. Departure Diagnosis: Primary Impression: Vomiting Vomiting type: unspecified Vomiting Intractability: unspecified Nausea presence: unspecified Qualified Codes: R11.10 - Vomiting, unspecified Additional Impressions: Renal insufficiency Fall with no significant injury Encounter type: initial encounter Qualified Codes: W19.XXXA - Unspecified fall, initial encounter Condition: Stable Patient Instructions: Vomiting (6Y-Adult), Renal Insufficiency, Refusal Of Further Treatment Additional Instructions: Drink plenty of fluids at home. Recheck for recurrent vomiting, fevers, abdominal pain, new worsening symptoms. WALTER MCARTHUR MD Sep 25, 2018 14:38
[2018-09-25 15:54] VITALS: BP 101/65; PULSE 90; RESP 18
== END 2018-09-25 15:58 | disposition home or self-care (01) ==
LOC: FTE 11:11
DX: R11.10 Vomiting, unspecified (principal); I10 Essential (primary) hypertension; N28.9 Disorder of kidney and ureter, unspecified
CPT/HCPCS: 36415; 80053; 83690; 85025; 93005; 96361; 96374; 96375; 99284; J2060; J2765; J7030

== ENCOUNTER 2019-01-30 09:41 | Inpatient (IN) | payer MEDICARE, OTHER ==
[~2019-01-30] VITALS: Ht 177.8 cm; Wt 62.1 kg
[~2019-01-30 09:41] MED LIST changes: +ALPR1TAB2 PO; +ASPI-903 PO; +DILT120C10 PO; +METO-429 PO; +METO10TA92 PO; +MIRT15TA5 PO; +PANT40TA4 PO
[2019-01-30] MEDS ORDERED: SOD CHLORIDE 0.9% 1,000 ML IV STA (13:17)
[2019-01-30] MEDS ORDERED: LACTATED RINGER'S 1,000 ML IV STA (13:17)
[2019-01-30] MEDS ORDERED: ALPRAZOLAM 1 MG TAB PO PRN (16:30)
[2019-01-30 19:00] VITALS: BP 153/90; PULSE 65; RESP 17
[2019-01-30] MEDS: SOD CHLORIDE 0.9% 1,000 ML IV SCH (20:01)
[2019-01-30 20:25] VITALS: Ht 177.8 cm; Wt 62.1 kg
[2019-01-30] MEDS: METOPROLOL 50 MG TAB PO SCH (22:02)
[2019-01-30] MEDS: PANTOPRAZOLE (EC) 40 MG TAB PO SCH (22:02)
[2019-01-30] MEDS: ASPIRIN 81 MG TAB PO SCH (22:02)
[2019-01-30] MEDS: MIRTAZAPINE 15 MG TAB PO SCH (22:03)
[2019-01-30] MEDS: DILTIAZEM (CD) 120 MG CAP PO SCH (22:03)
[2019-01-30] MEDS: MYCOPHENOLATE (SR) 180 MG TAB PO SCH (22:03)
[2019-01-30] MEDS: TACROLIMUS 1 MG CAP PO SCH (22:03)
[2019-01-30] MEDS: predniSONE 5 MG TAB PO SCH (22:03)
[2019-01-31 02:22] VITALS: BP 133/60; PULSE 70; RESP 17
[2019-01-31] MEDS ORDERED: POTASSIUM CHLORIDE (SR) 20 MEQ TAB PO ONE (06:58)
[2019-01-31 07:30] VITALS: BP 137/88; PULSE 78; RESP 18
[2019-01-31] MEDS ORDERED: MAGNESIUM SULFATE 2 GM/50 ML 50 ML IVPB ONE (08:30)
[2019-01-31] MEDS: MYCOPHENOLATE (SR) 180 MG TAB PO SCH ×2 (08:41→20:20)
[2019-01-31] MEDS: PANTOPRAZOLE (EC) 40 MG TAB PO SCH ×2 (08:41→20:20)
[2019-01-31] MEDS: DILTIAZEM (CD) 120 MG CAP PO SCH ×2 (08:41→20:20)
[2019-01-31] MEDS: ASPIRIN 81 MG TAB PO SCH ×2 (08:42→20:20)
[2019-01-31] MEDS: METOPROLOL 50 MG TAB PO SCH ×2 (08:42→20:20)
[2019-01-31] MEDS: predniSONE 5 MG TAB PO SCH ×2 (08:42→20:19)
[2019-01-31] MEDS: TACROLIMUS 1 MG CAP PO SCH ×2 (08:42→20:20)
[2019-01-31] MEDS: VANCOMYCIN HCL 250 MG/5ML POSYG PO SCH ×3 (10:55→23:45)
[2019-01-31] MEDS: SOD CHLORIDE 0.9% 1,000 ML IV SCH ×2 (12:30→17:03)
[2019-01-31 15:08] VITALS: BP 122/75; PULSE 70; RESP 18
[2019-01-31 20:12] VITALS: BP 155/97; PULSE 72; RESP 18
[2019-01-31] MEDS: MIRTAZAPINE 15 MG TAB PO SCH (20:20)
[2019-02-01 02:47] VITALS: BP 133/69; PULSE 60; RESP 17
[2019-02-01] MEDS: VANCOMYCIN HCL 250 MG/5ML POSYG PO SCH ×3 (05:55→17:20)
[2019-02-01] MEDS ORDERED: POTASSIUM CHLORIDE (SR) 20 MEQ TAB PO ONE (07:00)
[2019-02-01 08:13] VITALS: BP 161/89; PULSE 73; RESP 18
[2019-02-01] MEDS: DILTIAZEM (CD) 120 MG CAP PO SCH ×2 (08:23→20:38)
[2019-02-01] MEDS: PANTOPRAZOLE (EC) 40 MG TAB PO SCH ×2 (08:23→20:38)
[2019-02-01] MEDS: METOPROLOL 50 MG TAB PO SCH ×2 (08:23→20:38)
[2019-02-01] MEDS: predniSONE 5 MG TAB PO SCH ×2 (08:23→20:38)
[2019-02-01] MEDS: ASPIRIN 81 MG TAB PO SCH ×2 (08:23→20:38)
[2019-02-01] MEDS: TACROLIMUS 1 MG CAP PO SCH ×2 (08:23→20:37)
[2019-02-01] MEDS: MYCOPHENOLATE (SR) 180 MG TAB PO SCH ×2 (08:24→20:37)
[2019-02-01] MEDS: SOD CHLORIDE 0.9% 1,000 ML IV SCH (08:24)
[2019-02-01 15:36] VITALS: BP 136/87; PULSE 69; RESP 20
[2019-02-01 20:35] VITALS: BP 148/88; PULSE 73; RESP 18
[2019-02-01] MEDS: MIRTAZAPINE 15 MG TAB PO SCH (20:38)
[2019-02-02] MEDS: VANCOMYCIN HCL 250 MG/5ML POSYG PO SCH ×3 (00:07→11:32)
[2019-02-02 02:27] VITALS: BP 139/87; PULSE 69; RESP 18
[2019-02-02 07:28] VITALS: BP 157/96; PULSE 80; RESP 18
[2019-02-02] MEDS: ASPIRIN 81 MG TAB PO SCH (08:21)
[2019-02-02] MEDS: TACROLIMUS 1 MG CAP PO SCH (08:21)
[2019-02-02] MEDS: predniSONE 5 MG TAB PO SCH (08:21)
[2019-02-02] MEDS: MYCOPHENOLATE (SR) 180 MG TAB PO SCH (08:21)
[2019-02-02] MEDS: PANTOPRAZOLE (EC) 40 MG TAB PO SCH (08:21)
[2019-02-02] MEDS: DILTIAZEM (CD) 120 MG CAP PO SCH (08:22)
[2019-02-02] MEDS: METOPROLOL 50 MG TAB PO SCH (08:22)
[2019-02-02] MEDS ORDERED: POTASSIUM CHLORIDE (SR) 20 MEQ TAB PO STA (11:08)
== END 2019-02-02 12:20 | disposition home or self-care (01) | DRG 371 ==
LOC: E/R 09:41 → 2NE 13:53 → INTOOBSV 13:53 → OBSVTOIN 02-01 07:57
PROVIDERS: ADMIT Internal Medicine; ATTEND Internal Medicine
DX: A04.72 Enterocolitis due to Clostridium difficile, not specified as recurrent (principal); N18.6 End stage renal disease; Z94.83 Pancreas transplant status; I12.0 Hypertensive chronic kidney disease with stage 5 chronic kidney disease or end stage renal disease; N17.9 Acute kidney failure, unspecified; T86.12 Kidney transplant failure; D89.811 Chronic graft-versus-host disease; I48.91 Unspecified atrial fibrillation; E10.22 Type 1 diabetes mellitus with diabetic chronic kidney disease; E86.0 Dehydration; E10.42 Type 1 diabetes mellitus with diabetic polyneuropathy; E83.42 Hypomagnesemia; F41.9 Anxiety disorder, unspecified; E87.6 Hypokalemia; J44.9 Chronic obstructive pulmonary disease, unspecified; K21.9 Gastro-esophageal reflux disease without esophagitis; Y83.0 Surgical operation with transplant of whole organ as the cause of abnormal reaction of the patient, or of later complication, without mention of misadventure at the time of the procedure; Z79.82 Long term (current) use of aspirin
CPT/HCPCS: 36415; 80048; 80053; 81003; 83690; 83735; 84100; 84145; 84484; 85025; 85610; 85730; 87045; 87075; 87081; 87177; 87205; 99217; G0378; J3475; J7030; J7120; J7507; J7512